=== PATIENT | male | born 1975 | race Caucasian/White ===

== ENCOUNTER 2021-09-08 15:36 | Emergency (ER) | payer OTHER, SELFPAY ==
--- NOTE | ~2021-09-08 | XR_ITS ---
EXAMINATION: [id number] DATE: 09/08/2021 16:13 INDICATION: Right rib pain. Cough. TECHNIQUE: A frontal view of the chest and 2 views on 3 radiographs of the right ribs were obtained. COMPARISON: CT abdomen and pelvis 07/22/2015 FINDINGS: The chest demonstrates clear lungs without pneumonia, pleural effusion, or pneumothorax. Th e heart size is normal. There is an old healed fracture of left clavicle. There is no rib fracture. IMPRESSION: 1. No rib fracture. Reviewed, dictated and finalized at location A. IMPRESSION: 1. No rib fracture.
--- NOTE | 2021-09-08 16:25 | ED.GENADULT ---
HPI - General Adult General Chief complaint: Unspecified Stated complaint: right side rib pain Source: patient and RN notes reviewed Mode of arrival: ambulatory Limitations: no limitations History of Present Illness HPI narrative: 46-year-old male presents with concern for right-sided rib pain. Reports he has had cold symptoms with a cough that started on Sunday. Reports he has had a lot of drainage and is coughing a lot, yesterday during a coughing fit he felt a pop in his chest wall and since then has had pain with coughing and deep breathing. Reports trouble sleeping due to the pain and coughing. He denies shortness of breath. Denies fever, bodies, chills, sweats. MD complaint: Upper respiratory infection Related Data Home Medications Medication Instructions Recorded Confirmed omeprazole 40 mg capsule,delayed 40 mg PO DAILY 12/30/20 01/17/21 release Allergies Allergy/AdvReac Type Severity Reaction Status Date / Time No Known Allergies Allergy Verified 12/30/20 08:04 Review of Systems Review of Systems: CONSTITUTIONAL: Denies malaise, chills, sweats, or fever. EYES: Denies visual changes, redness, or discharge. ENT: Reports rhinorrhea, congestion. Denies sinus pain, otalgia and sore throat. CARDIOVASCULAR: Denies chest pain, palpitations, or edema. RESPIRATORY: Reports cough. Denies dyspnea. Reports right-sided anterior chest wall pain GASTROINTESTINAL: Denies abdominal pain, nausea, vomiting, diarrhea SKIN: Denies rash or itching. MUSCULOSKELETAL: Denies myalgia. NEUROLOGIC: Denies headache. All systems reviewed & are unremarkable except as noted in HPI and below PMFSH Past Medical History Medical History Acute bronchitis due to other specified organisms Acute pain of left foot Acute pain of right shoulder Acute sinusitis, unspecified Adenomatous colon polyp BMI 38.0-38.9,adult BMI 40.0-44.9, adult Body mass index [BMI] 39.0-39.9, adult (09/24/17) Chronic fatigue Constipation Dietary counseling and surveillance (05/08/18) Diverticulitis Diverticulitis large intestine Diverticulitis of large intestine without perforation or abscess Elevated glucose Infection of right eye Left lower quadrant pain Low serum testosterone Lung nodule Obese Right hip pain Screening for lipid disorders Screening for prostate cancer Vitamin D deficiency Family History Family History Mother Hypertension Father Heart disease Sibling No problems noted. 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 There is no relevant family history pertinent to the presenting complaint Exam Narrative: GENERAL: Well-appearing, well-nourished, and in no acute distress. HEAD: Normocephalic EYES: PERRLA, conjunctivae clear ENT: Nares clear, clear discharge. Mucous membranes moist. TM pearly zepeda with sharp light reflex bilaterally; no tragal tenderness. Oropharynx not erythematous without lesions. Tonsils not enlarged and without exudate, no drooling, no hoarseness, no trismus, uvula midline. NECK: Supple. No lymphadenopathy CHEST: Clear to auscultation, breath sounds equal. No wheezing, rhonchi, rales, or stridor. No respiratory distress, speaks in full sentences. No chest wall tenderness noted HEART: Regular rate and rhythm. No murmur heard. SKIN: Warm, dry, no rash. NEURO: Alert and oriented x3. P
== END 2021-09-08 16:37 | disposition home or self-care (01) ==
PROVIDERS: Emergency Provider Nurse Practitioner; PCP Family Medicine
DX: J40 Bronchitis, not specified as acute or chronic (principal); R07.89 Other chest pain
CPT/HCPCS: 71101; 99213; G0463

== ENCOUNTER 2023-11-06 15:30 | Outpatient (RCR) | payer OTHER, SELFPAY | END 2023-11-19 10:26 | disposition home or self-care (01) | LOC: ANHDMC 15:30 | PROVIDERS: PCP Family Medicine; Visit Provider Family Medicine | DX: E11.9 Type 2 diabetes mellitus without complications (principal); Z71.89 Other specified counseling | CPT/HCPCS: G0108 ==

== ENCOUNTER 2024-07-28 11:30 | Emergency (ER) | payer OTHER, SELFPAY ==
--- NOTE | ~2024-07-28 | CT_ITS ---
EXAMINATION: CT abdomen pelvis w con DATE: 07/28/2024 12:41 INDICATION: Lower abdominal pain TECHNIQUE: Computed tomography (CT) of the abdomen and pelvis was performed with 100 mL Omnipaque-350 intravenous contrast. Automated exposure control and iterative reconstruction technique were employe d. The dose-length product was 1687.17 mGy-cm. COMPARISON: 07/22/2015 FINDINGS: Mild atelectasis at the dependent lung bases. Heart size is normal. No pericardial or pleural effusio n. Diffuse hepatic steatosis with focal sparing along the gallbladder fossa. Gallbladder, spleen, michel creas, bilateral adrenal glands and kidneys are normal. There is some stranding surrounding the mid s igmoid colon without evident diverticulum but with focal circumferential wall thickening with apple c ore appearance and abrupt transition to normal wall thickness which raises concern for colon cancer. Wall thickening at this location on the study from 2015 but it did appear to be associated diverticul um and this could be related to acute on chronic diverticulitis. Remainder the bowels including the a ppendix are normal. Moderate-sized fat-containing umbilical hernia measuring 8.6 x 7.9 x 6.5 cm and e xtending through a 2.5 cm diameter os. No abscess or free intraperitoneal gas. No pathologically enla rged abdominal or pelvic lymphadenopathy.. L5 spondylolysis with bilateral pars interarticularis defe cts but without spondylolisthesis. Severe spondylosis at L5-S1 IMPRESSION: 1. Inflammatory stranding surrounding a focal region of wall thickening in the mid sigmoid colon sett ing of prior diverticulitis which could represent recurrent acute on chronic diverticulitis although appearance also raises some concern for malignancy and if this has not been recently performed would recommend further evaluation with colonoscopy when clinically appropriate. 2. Moderate-sized fat-containing umbilical hernia. Reviewed, dictated and finalized at location A. IMPRESSION: 1. Inflammatory stranding surrounding a focal region of wall thickening in the mid sigmoid colon setting of prior diverticulitis which could represent recurre nt acute on chronic diverticulitis although appearance also raises some concern for malignancy and if this has not been recently performed would recommend fur ther evaluation with colonoscopy when clinically appropriate. 2. Moderate-sized fat-containing umbilical hernia.
[2024-07-28 11:37] VITALS: BP 160/104; PULSE 103; RESP 18; TEMP 36.8; O2SAT 99
[2024-07-28 12:02] LABS: Basophils Absolute Auto 0.1 K/mm3 (0.0-0.1); Basophils Percent Auto 0.8 % (0.2-1.2); Eosinophils Absolute Auto 0.3 K/mm3 (0-0.3); Eosinophils Percent Auto 2.5 % (0-4.4); Hematocrit 45.5 % (42.0-52.0); Hemoglobin 14.8 g/dL (14.0-18.0); Immature Granulocyte Absolute 0.07 K/mm3 (0.00-0.031); Immature Granulocyte Percent A 0.7 % (0-0.5); Lymphocytes Absolute Auto 1.17 K/mm3 (0.9-3.2); Lymphocytes Percent Auto 11.2 % (18.3-44.2); Mean Corpuscular HGB Conc 32.5 g/dl (32-36); Mean Corpuscular Volume 89.2 fl (80-100); Monocytes Absolute Auto 0.8 K/mm3 (0.1-0.6); Monocytes Percent Auto 7.2 % (2.6-8.5); Neutrophils Absolute Auto 8.1 K/mm3 (1.3-6.7); Neutrophils Percent Auto 77.6 % (45.5-73.1); Platelet Count Result 244 k/mm3 (150-375); Red Cell Distribution Width 13.9 % (11.5-14.5); White Blood Count 10.5 K/mm3 (4.5-10.0)
[2024-07-28 12:14] LABS: Alanine Aminotransferase 48 U/L (6-50); Albumin Level 4.4 g/dL (3.5-5.1); Alkaline Phosphatase 144 U/L (38-126); Anion Gap 11 mmol/L (4-12); Aspartate Amino Transferase 32 U/L (17-59); Bilirubin,Total 0.7 mg/dL (0.2-1.3); Blood Urea Nitrogen 12 mg/dL (9-20); Calcium 9.4 mg/dL (8.4-10.2); Carbon Dioxide 24 mmol/L (22-30); Chloride 102 mmol/L (98-107); Estimated CRCL calculation 122 ml/min; Estimated Glomerular Filt Rate > 60; Glucose 157 mg/dL (65-110); Lipase 42 U/L (23-300); Potassium 4.1 mmol/L (3.4-5.0); Sodium 137 mmol/L (137-145); Total Protein 7.7 g/dL (6.3-8.2)
[2024-07-28 12:18] LABS: Add Urine Microscopic? YES; Appearance Urine Clear (Clear); Bacteria Urine None Seen /hpf; Bilirubin Urine Negative (Negative); Blood Urine Negative (Negative); Color Urine Dark Yellow (Yellow); Glucose Urine UA Negative (Negative); Hyaline Casts Urine Present /lpf; Ketones Urine Trace mg/dL (Negative); Leukocyte Esterase Ur Negative LEU/UL (Negative); Mucus Urine Present /lpf; Need Manual Microscopic Reviewed; Nitrate Urine Negative (Negative); Protein Urine 1+ mg/dL (Negative); RBC Urine 0-2 /hpf (0-2); Specific Grav Ur 1.033 (1.001-1.035); Squamous Epithelial Cell Urine Few /hpf (Few); pH Urine 5.5 (5.0-9.0)
--- NOTE | 2024-07-28 12:37 | PC.NURSE ---
Pt. in CT. Will administer ordered meds when pt. returns.
[2024-07-28] MEDS: SODIUM CHLORIDE 0.9% IV 2,000 ML 999 ML IV CONT (12:46)
[2024-07-28] MEDS: HYDROmorphone HCL INJ (*CRX) 2 MG/ML VIAL 0.5 MG IV PUSH (12:47)
[2024-07-28 13:00] VITALS: BP 137/102; PULSE 73; RESP 14; O2SAT 98
--- OUTSIDE RECORDS SUMMARY | 2024-07-28 13:04 | XMS_ITS | Clinical Summary ---
Author Organization [facility] Address [address] [place] [address] Care Team Providers Care Research Quality Assurance Analyst Name Role Phone Unavailable Primary Care Provider Unavailabl e Source Comments [facility],non-owned Affiliates and Associated Physician Practices is amultiple site organization consisting of ambulatory clinics and hospital sitesin [place], [place], [place] and [place]. This disclosure is being madepursuant to the Care Everywhere program and may not contain all information available regarding this patient. Last updated 17.[facility] Medications * Be aware that medications may not be up to date on this document. Alwaysverify current medications with the patient. valACYclovir (VALTREX) 1 GM tablet Take 2 (two) tablets by mouth 2 times daily 4 tablet 08/02/2020 Active Active Problems No known active problems Social History Tobacco Use Types Packs/Day Years Used Date Smoking Tobacco: Never Assessed PHQ-2 Answer Date Recorded PHQ2 TOTAL SCORE 0 08/02/2020 Sex and Gender Information Value Date Recorded Sex Assigned at Not on file Legal Sex Male 8:18 AM CDT Gender Identity Not on file Sexual Orientation Not on file Last Filed Vital Signs Vital Sign Reading Time Taken Comments Blood Pressure 130/72 08/02/2020 4:22 PM CDT Pulse 81 08/02/2020 4:22 PM CDT Temperature 36.9 C (98.4 F) 08/02/2020 4:22 PM CDT Respiratory Rate 20 08/02/2020 4:22 PM CDT Oxygen Saturation - - Inhaled Oxygen Concentration - - Weight - - Height - - Body Mass Index - - Plan of Treatment Health Maintenance Due Date Last Done Comments COLOGUARD (AGES 45-75) - COL ON CA SCREENING 1973 COLON MONITORING 1973 COLONOSCOPY - COLON CA SCREENING 1973 CT COLONOGRAPHY - COLON CA SCREENING 1973 Colorectal Cancer Screening 1973 FIT - COLON CA SCREENING 1973 FLEX SIG - COLON CA SCREENING 1973 LIPID TESTING 1973 HIV SCREENING 1988 HEPATITIS C SCREENING 09/04/1991 DTAP/TDAP/TD VACCINES (1 - Tdap) 1992 HEPATITIS B VACCINE (1 of 3 - 19+ 3-dose series) 1992 PNEUMOCOCCAL VACCINE 50+ (1 of 1 - PCV) 09/09/2023 ZOSTER VACCINE (1 of 2) 09/09/2023 COVID-19 VACCINE (3 - 2023-2 5 season) 2023 06/08/2020, 05/18/2020 DEPRESSION SCREENING 02/20/2024 INFLUENZA VACCINE (Season Ended) 2024 HIB VACCINE Aged Out No longer eligi ble based on patient's age to complete this topic HPV VACCINE Aged Out No longer eligi ble based on patient's age to complete this topic MENINGOCOCCAL (Group B) VACCINE SHARED DECISION-MAKING Aged Out No longer eligible based on patient's age to complete this topic MENINGOCOCCAL GROUPS A/C/Y/W VACCINE Aged Out No longer eligible b ased on patient's age to complete this topic Insurance NA NIKKI
--- NOTE | 2024-07-28 13:08 | ED.GENADULT ---
HPI - General Adult General Chief complaint: Abdominal Pain Stated complaint: severe stomach pains Time Seen by Provider: 07/28/24 12:01 History of Present Illness HPI narrative: This is a 48-year-old male with history of diverticulitis presenting for lower abdominal pain. Symptoms started 2 days ago. Describes as a crampy pain in the suprapubic region. Associated with changes in bowel habits. He has had subjective fevers but has not taken a temperature. He says this feels similar to previous diverticulitis bouts. Related Data Home Medications ?Medication ?Instructions ?Recorded ?Confirmed ?Last Taken ?Type cholecalciferol (vitamin D3) 1,250 1,250 mcg PO WEEKLY 05/02/24 05/02/24 Unknown History mcg (50,000 unit) capsule Allergies Allergy/AdvReac Type Severity Reaction Status Date / Time No Known Allergies Allergy Verified 07/28/24 11:44 [facility] Past Medical History Medical History Decreased libido BMI 40.0-44.9, adult Acute bronchitis due to other specified organisms Acute pain of left foot Acute pain of right shoulder Acute sinusitis, unspecified Chronic fatigue Dietary counseling and surveillance (05/08/18) Diverticulitis Diverticulitis of large intestine without perforation or abscess Elevated glucose Infection of right eye Left lower quadrant pain Low serum testosterone Lung nodule Right hip pain Screening for lipid disorders Screening for prostate cancer Vitamin D deficiency Constipation Obese Adenomatous colon polyp Diverticulitis large intestine Surgical History Surgical History Hx of colonoscopy Family History Family History Mother Hypertension Father Heart disease Sibling No problems noted. Other Cerebrovascular accident Family history of coronary artery disease Social History Social History Smoking status: Never smoker Second hand tobacco smoke exposure: Yes Alcohol intake: current Drinks per week: 12 Alcohol use details: beers Substance use: never Substance use type: does not use Do You Feel Safe in your Home?: Yes Lack of Transportation: No Lack of Food: Never True Current Housing: I Have Housing Concerned About Future Housing: No Difficulty Paying Gas/Electric Bills: No Difficulty Paying for Meds: No Currently Unemployed: No Education: High School Diploma/GED Difficulty w/ Childcare or Family Care: No Living arrangements: with family Occupation/Education: occupation 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 Head: atraumatic. EYES: EOMI, NOSE: Atraumatic NECK: Trachea midline RESPIRATORY: No increased rate of breathing CARDIOVASCULAR: RRR, ABDOMINAL: Obese, nontender, no guarding rebound, umbilical hernia MUSCULOSKELETAl: No obvious deformities NEURO: Alert. Moving 4/4 extremities SKIN:: Warm, dry. Normal color PSYCHIATRIC: Normal affect Course Vital Signs Vital signs: Vital Signs Temperature 98.2 F 07/28/24 11:37 Pulse Rate 103 H 07/28/24 11:37 Respiratory Rate 18 07/28/24 11:37 Blood Pressure 160/104 H 07/28/24 11:37 Pulse Oximetry 99 07/28/24 11:37 Oxygen Delivery Room Air 07/28/24 11:37 Temperature 98.2 F 07/28/24 11:37 Pulse Rate 73 07/28/24 13:00 Respiratory Rate 14 07/28/24 13:00 Blood Pressure 137/102 H 07/28/24 13:00 Pulse Oximetry 98 07/28/24 13:00 Oxygen Delivery Room Air 07/28/24 11:37 Medical Decision Making MDM Narrative Medical decision making narrative: -Course: 48-year-old male presenting for lower abdominal pain. CT abdomen pelvis showed inflammation around the sigmoid colon which could be acute on chronic diverticulitis versus possible malignancy. This was discussed with the patient he had a colonoscopy 2 years ago and had some polyps removed but there is no concern for cancer that time. He follows up with a GI doctor in [place] and is comfortable following up. Other than that is heart rate was tachycardic on arrival but responded to fluids and pain medications. Laboratory studies are within acceptable limits. Patient will be discharged on a short course of antibiotics, pain meds and antiemetics. Follow up with his GI doctor in week. Given return precautions. -DDX includes but is not limited to: Diverticulitis, complicated diverticulitis, UTI small-bowel obstruction appendicitis, colitis -Co-morbidities complicating care: History of diverticulitis, diabetes, obesity Vital Signs Vital Signs: Vital Signs Temperature 98.2 F 07/28/24 11:37 Pulse Rate 103 H 07/28/24 11:37 Respiratory Rate 18 07/28/24 11:37 Blood Pressure 160/104 H 07/28/24 11:37 Pulse Oximetry 99 07/28/24 11:37 Oxygen Delivery Room Air 07/28/24 11:37 Temperature 98.2 F 07/28/24 11:37 Pulse Rate 73 07/28/24 13:00 Respiratory Rate 14 07/28/24 13:00 Blood Pressure 137/102 H 07/28/24 13:00 Pulse Oximetry 98 07/28/24 13:00 Oxygen Delivery Room Air 07/28/24 11:37 Lab Data 07/28/24 11:53 07/28/24 11:53 Labs: Lab Results 07/28/24 Range/Units 11:53 WBC 10.5 H (4.5-10.0) K/mm3 RBC 5.10 (4.6-6.20) M/mm3 Hgb 14.8 (14.0-18.0) g/dL Hct 45.5 (42.0-52.0) % MCV 89.2 (80-100) fl MCH 29.0 (26-34) pg MCHC 32.5 (32-36) g/dl RDW 13.9 (11.5-14.5) % Plt Count 244 (150-375) k/mm3 MPV 10.0 (7.4-10.4) fl Immature Gran % (Auto) 0.7 H (0-0.5) % Neut % (Auto) 77.6 H (45.5-73.1) % Lymph % (Auto) 11.2 L (18.3-44.2) % [place] % (Auto) 7.2 (2.6-8.5) % Eos % (Auto) 2.5 (0-4.4) % Baso % (Auto) 0.8 (0.2-1.2) % Lymph # (Auto) 1.17 (0.9-3.2) K/mm3 [place] # (Auto) 0.8 H (0.1-0.6) K/mm3 Eos # (Auto) 0.3 (0-0.3) K/mm3 Baso # (Auto) 0.1 (0.0-0.1) K/mm3 Abs Immat Gran (auto) 0.07 H (0.00-0.031) K/mm3 Absolute Neuts (auto) 8.1 H (1.3-6.7) K/mm3 Absolute Nucleated RBC 0.000 (0.0-0.012) K/mm3 Nucleated RBC % 0.0 (0.0-0.2) % Sodium 137 (137-145) mmol/L Potassium 4.1 (3.4-5.0) mmol/L Chloride 102 (98-107) mmol/L Carbon Dioxide 24 (22-30) mmol/L Anion Gap 11 (4-12) mmol/L BUN 12 (9-20) mg/dL Creatinine 0.90 (0.7-1.3) mg/dL Estim Creat Clear Calc 122 ml/min Estimated GFR > 60 (59 - ) Glucose 157 H (65-110) mg/dL Calcium 9.4 (8.4-10.2) mg/dL Total Bilirubin 0.7 (0.2-1.3) mg/dL AST 32 (17-59) U/L ALT 48 (6-50) U/L Alkaline Phosphatase 144 H (38-126) U/L Total Protein 7.7 (6.3-8.2) g/dL Albumin 4.4 (3.5-5.1) g/dL Lipase 42 (23-300) U/L Urine Color Dark yellow (Yellow) Urine Appearance Clear (Clear) Urine pH 5.5 (5.0-9.0) Ur Specific [place] 1.033 (1.001-1.035) Urine Protein 1+ H (Negative) mg/dL Urine Glucose (UA) Negative (Negative) mg/dL Urine Ketones Trace H (Negative) mg/dL Ur Blood (Man) Negative (Negative) Urine Nitrate Negative (Negative) Urine Bilirubin Negative (Negative) Urine Urobilinogen 1.0 (<2.0) mg/dL Add Ur Microanalysis Reviewed Leukocyte Esterase Rfl Negative (Negative) TRISTEN/UL Urine RBC 0-2 (0-2) /hpf Urine WBC 6-10 H (0-3) /hpf Ur Squamous Epith Cells Few (Few) /hpf Urine Bacteria None seen /hpf Urine Casts 3-5 Hyaline Casts Present (None) /lpf Urine Mucus Present /lpf Discharge Plan Discharge Clinical Impression: Diverticulitis Patient Disposition: Home Condition: Stable Instructions: Antibiotic Form, Diverticulitis (DC) Additional Instructions: You were seen in the emergency department for diverticulitis. Complete the course of antibiotics. Use over the counter Motrin/Tylenol pain control and Zofran nausea return if severe abdominal pain, intractable nausea vomiting or if you feel your condition is getting worse. Please follow-up with your GI doctor in 1 week for further management. Patient Language: Hungarian Prescriptions: New amoxicillin-pot clavulanate 875-125 mg tablet 1 tablet PO Q8H Qty: 15 0RF ibuprofen 800 mg tablet 800 mg PO TID PRN (Reason: pain) 7 Days Qty: 21 0RF acetaminophen 500 mg tablet 1,000 mg PO TID PRN (Reason: carissa) 7 Days Qty: 42 0RF ondansetron 4 mg tablet,disintegrating 4 mg PO Q8H PRN (Reason: nausea and vomiting) Qty: 30 0RF No Action esomeprazole magnesium [Nexium] 40 mg capsule,delayed release(DR/EC) 40 mg PO DAILY Qty: 30 3RF clomiphene citrate 50 mg tablet 25 mg PO DAILY Qty: 30 2RF cholecalciferol (vitamin D3) 1,250 mcg (50,000 unit) capsule 1,250 mcg PO WEEKLY (DME) OneTouch Verio test strips Strip See Rx Instructions .Route Qty: 100 0RF Rx Instructions: As directed (DME) lancets [OneTouch Delica Plus Lancet] 30 gauge misc See Rx Instructions .Route Qty: 100 3RF Rx Instructions: check glucose bid for diabetes metformin 500 mg tablet extended release 24 hr See Rx Instructions .ROUTE .COMPLEX Qty: 180 1RF Dose Instruction: TAKE 1 TABLET BY MOUTH TWICE DAILY Rx Instructions: TAKE 1 TABLET BY MOUTH TWICE DAILY tirzepatide 10 mg/0.5 mL pen injector 10 mg subcut WEEKLY Qty: 2 1RF Rx Instructions: for weeks 8-12 Follow-up/Referrals: Fidel Rae MD [Primary Care Provider] -
--- OUTSIDE RECORDS SUMMARY | 2024-07-28 13:43 | XMS_ITS | Clinical Summary ---
Author Organization [facility] Address [address] [place] [address] Care Team Providers Care Timber Killer Name Role Phone Unavailable Primary Care Provider Unavailabl e Source Comments [facility],non-owned Affiliates and Associated Physician Practices is amultiple site organization consisting of ambulatory clinics and hospital sitesin [place], [place], [place] and [place]. This disclosure is being madepursuant to the Care Everywhere program and may not contain all information available regarding this patient. Last updated 17.[facility] Medications * Be aware that medications may [...]
[2024-07-28 14:31] VITALS: BP 147/97; PULSE 90; RESP 16; O2SAT 98
== END 2024-07-28 14:35 | disposition home or self-care (01) ==
PROVIDERS: General Practice; Emergency Provider Emergency Medicine; PCP Family Medicine
DX: K57.32 Diverticulitis of large intestine without perforation or abscess without bleeding (principal); E66.9 Obesity, unspecified; Z68.39 Body mass index [BMI] 39.0-39.9, adult
CPT/HCPCS: 36415; 74177; 80053; 81001; 83690; 85025; 87086; 96361; 96374; 99284; J1171; J7030; Q9967

== ENCOUNTER 2024-10-17 00:08 | Day surgery (SDC) | payer OTHER, SELFPAY ==
--- OUTSIDE RECORDS SUMMARY | 1997-12-27 19:00 | XMS_ITS | Continuity of Care Document ---
Author Organization [facility] Address [address] [address] Phone Care Team Providers Care Planning Feeder Name Role Phone Sheri Quezada MD Unavailable Unavailable Advance Directives Directive Yes / No Effective Date File Name No Information Encounters Encounter Description Practice Location Reason(s) For Visit Diagnoses Date Provider Providers Copied on Encounter [facility], [address], [place], [address], tel:[phone] Sheri Quezada No Information Pilar Wade. [address] [place] [address] [address], [place], [address], . tel:[phone] Referring Provider: Deandre Nova [facility] [address], [place], [place], [facility]. tel:[phone] Family History Family Member Type Diagnosis Age At Onset No Information Payers Payer name Insurance type Covered democrat ID Authoriza tion(s) No Information Social History Type Description Quantity Date Captured Comments Sex Male Smoking Status No Information Chief Complaint And Reason For Visit No Information History Of Present Illness Encounter Date Complaint History Of Prese nt Illness No Information Instructions Date Instruction Additional Infor mation No Information Assessments Type Assessment Date No Information
--- OUTSIDE RECORDS SUMMARY | 2017-04-26 07:00 | XMS_ITS | Continuity of Care Document ---
Author Organization [employer] Address [address] [facility] [address] [place] [address] Phone Care Team Providers Care Slab Conditioner Supervisor Name Role Phone Ailyn PT, DPT, Jack [...] Diagnoses Date Provider Providers Copied on Encounter [facility], [address] [address], [place], [place], [id number], tel:[phone] [place] No Information Ailyn Santiago. . Referring Provider: Humphrey Ho, [address], [place], [address]. tel:[phone] [facility], [address], [place], [place], [id number], tel:[phone] [place] No Information Ailyn Santiago. . Referring Provider: Humphrey Tavarez [address], [place], [address]. tel:[phone] [place] [address], [address], [id number], [place] tel:[phone] [place] No Information Ailyn Santiago. . Referring Provider: Humphreymarcella Tavarez [address], [place], [address]. tel:[phone] [facility], [address] [facility] [address] [place] [address], [id number], [place] tel:[phone] [place] No Information Ailyn Santiago. . Referring Provider: Humphrey Tavarez [address], [place], [address]. tel:[phone] [facility], [address], [place], [id number], [place] tel:[phone] [place] No Information Ailyn Santiago. . Referring Provider: Humphrey Tavarez [address], [place], [address]. tel:[phone] [facility], [address], [place], [place], [id number], [place] tel:[phone] [place] No Information Ailyn Santiago. . Referring Provider: Humphrey Corby, [address], [place], [address]. tel:[phone] [facility], [address] [address], [place], [place], [id number], tel:[phone] [place] No Information Ailyn Santiago. . Referring Provider: Humphrey Corby [address], [place], [address]. tel:[phone] [facility], [address], [id number], [place] tel:[phone] [place] No Information Ailyn Santiago. . Referring Provider: Humphrey Tavarez [address], [place], [address]. tel:[phone] [facility], [address], [id number], [place] tel:[phone] [place] No Information Ailyn Santiago. . Referring Provider: Humphrey Corby [address], [place], [address]. tel:[phone] [facility], [address], [id number], [place] tel:[phone] [place] No Information Ailyn Santiago. . Referring Provider: Humphrey Corby [address], [place], [address]. tel:[phone] [facility], [address], [id number], [place] tel:[phone] [place] Inj oth musc/tend at lower leg level, left leg, subs Ailyn Santiago. . Referring Provider: Humphrey Tavarez [address] [place], [address]. tel:[phone] Family History Family Member Type Diagnosis Age At Onset No Information Payers Payer name Insurance type Covered libertarian ID Authoriza lucinda(s) [facility] [id number] Social History Type Description Quantity Date Captured [...]
[2024-10-01 13:04] VITALS: BMI 39.3
--- OUTSIDE RECORDS SUMMARY | 2024-10-17 00:11 | XMS_ITS | Clinical Summary ---
Author Organization [facility] Address [address] [place] [id number] Care Team Providers Care House Worker General Name Role Phone Fidel Rae MD Primary Care Provider [phone] Allergies No known active allergies Medications ondansetron 4 MG disintegrating tablet Take 1 tablet (4 mg total) by mouth every 8 (eight) hours as needed for Nausea. 20 tablet 9 Active hydrocodone-acetami nophen 5-325 MG tablet Take 1 tablet by mouth every 6 (six) hours as needed for Pain. 14 tablet 9 Active Family History Medical History Relation Comments Cancer Father Relation Status Comments Father Social History Tobacco Use Types Packs/Day Years Used Date Smoking Tobacco: Never Smokeless Tobacco: Never Alcohol Use Standard Drinks/Week Comments Yes 16 (1 standard drink = 0.6 oz pu re alcohol) Sex and Gender Information Value Date Recorded Sex Assigned at Not on file Legal Sex Male 11:51 AM CDT Gender Identity Not on file Sexual Orientation Not on file Last Filed Vital Signs Vital Sign Reading Time Taken Comments Blood Pressure 142/92 09/30/2018 11:55 AM CDT Pulse 88 09/30/2018 11:55 AM CDT Temperature 37.1 C (98.8 F) 09/30/2018 11:55 AM CDT Respiratory Rate 18 09/30/2018 11:55 AM CDT Oxygen Saturation 100% 09/30/2018 11:55 AM CDT Inhaled Oxygen Concentration - - Weight 135.6 kg (299 lb) 09/30/2018 11:55 AM CDT Height 182.9 cm (6') 09/30/2018 11:55 AM CDT Body Mass Index 40.55 09/30/2018 11:55 AM CDT Plan of Treatment Health Maintenance Due Date Last Done Comments Colorectal Cancer Screening Colonoscopy (10 Years) 1973 Annual Physical 1976 Hepatitis C 09/09/1991 DTaP, Tdap and Td Vaccines ( 1 - Tdap) 1992 Hepatitis B Vaccines (1 of 3 - 19+ 3-dose series) 1992 Pneumococcal Vaccine: 50+ Ye ars (1 of 1 - PCV) 09/09/2023 Zoster Vaccines (1 of 2) 09/09/2023 COVID-19 Vaccine (1 - 2023-2 5 season) 2023 Meningococcal B Vaccine Aged Out No l onger eligible based on patient's age to complete this topic Meningococcal Vaccine Aged Out No kary calvin eligible based on patient's age to complete this topic RSV Immunizations Under 20 Months Aged Out No longer eligible based on patient's age to complete this topic Insurance Care Teams House Worker General Relationship Specialty Start Date End Date Fidel Rae MD [address] [id number] PCP - General FAMILY PRACTICE 09/30/18
[2024-10-17 10:24] VITALS: BP 140/88; PULSE 101; RESP 16; TEMP 36.6; O2SAT 99; BMI 38.9
[2024-10-17] MEDS: LACTATED RINGERS 1,000 ML 150 ML IV CONT (10:36)
--- NOTE | 2024-10-17 10:41 | P.PNAN_ITS ---
Anes - Initial Pre Proc Eval Procedure: Operation Date: 10/17/24 11:30 Proposed Procedures p EGD & Diagnostic Colonoscopy - Charlie Argueta MD Date/Time: 10/17/24 10:41 Surgeon: Charlie Argueta MD Pre Op Diagnosis: Abnormal findings on diagnostic imaging of other a Patient Data Age: 49 Gender: M Height: 1.83 m Weight: 130.4 kg Last Vital Signs Temp 36.6 C 10/17/24 10:24 Pulse 101 H 10/17/24 10:24 Resp 16 10/17/24 10:24 BP 140/88 10/17/24 10:24 Pulse Ox 99 10/17/24 10:24 O2 Del Method Room Air 10/17/24 10:24 Allergies Allergy/AdvReac Type Severity Reaction Status Date / Time No Known Allergies Allergy Verified 10/17/24 10:22 Home Medications ?Medication ?Instructions ?Recorded ?Confirmed ?Type esomeprazole magnesium 40 mg 40 mg PO DAILY #30 caps 1 10/17/24 Rx capsule,delayed release (Nexium) blood sugar diagnostic (OneTouch #100 ea 08/30/2309/19 Rx Verio test strips) lancets 30 gauge (OneTouch Delica #100 ea 01/02/24 Rx Plus Lancet) clomiphene citrate 50 mg tablet 25 mg (1/2 x 50 mg) PO DAILY #30 02/11/24 10/17/24 Rx tabs metformin 500 mg tablet,extended See Rx Instructions . Route 04/22/24 10/17/24 Rx release 24 hr .COMPLEX #180 tabs cholecalciferol (vitamin D3) 1,250 1,250 mcg PO WEEKLY 05/02/24 10/17/24 History mcg (50,000 unit) capsule acetaminophen 500 mg tablet 1,000 mg (2 x 500 mg) PO T ID PRN 07/28/24 10/17/24 Rx carissa 7 days #42 tabs ibuprofen 800 mg tablet 800 mg PO TID PRN pain 7 day s #21 07/28/24 10/01/24 Rx tabs ondansetron 4 mg disintegrating 4 mg PO Q8H PRN nausea and 07/28/24 10/01/24 Rx tablet vomiting #30 tabs testosterone cypionate 200 mg/mL 200 mg subcut [id number] 10/01/24 10/01/24 History intramuscular oil tirzepatide 10 mg/0.5 mL 15 mg subcut WEEKLY 10/01/24 10/01/24 History subcutaneous pen injector Laboratory Tests 10/17/24 10:29 POC Capillary Glucose 129 H mg/dl (65-105) Patient hx anesthesia problems: none Family hx anesthesia problems: none Results Review: All pre-operative results and documents have been reviewed as part of the pre- operative evaluation. [facility] Past Medical History Medical History Type 2 diabetes mellitus without complications HERON (obstructive sleep apnea) Decreased libido BMI 40.0-44.9, adult Acute bronchitis due to other specified organisms Acute pain of left foot Acute pain of right shoulder Acute sinusitis, unspecified Chronic fatigue Dietary counseling and surveillance (05/08/18) Diverticulitis Diverticulitis of large intestine without perforation or abscess Elevated glucose Infection of right eye Left lower quadrant pain Low serum testosterone Lung nodule Right hip pain Screening for lipid disorders Screening for prostate cancer Vitamin D deficiency Constipation Obese Adenomatous colon polyp Diverticulitis large intestine Surgical History Surgical History Hx of colonoscopy Family History Family History Mother Hypertension Father Heart disease Sibling No problems noted. Other Cerebrovascular accident Family history of coronary artery disease Social History Social History Smoking status: Never smoker Second hand tobacco smoke exposure: Yes Alcohol intake: current Drinks per week: 24 Alcohol use details: beer Substance use: never Substance use type: does not use Do You Feel Safe in your Home?: Yes Lack of Transportation: No Lack of Food: Never True Current Housing: I Have Housing Concerned About Future Housing: No Difficulty Paying Gas/Electric Bills: No Difficulty Paying for Meds: No Currently Unemployed: No Education: High School Diploma/GED Difficulty w/ Childcare or Family Care: No Living arrangements: with family Occupation/Education: occupation 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 Informed Consent: The patient's anesthetic plan and its attendant risks and benefits were discussed with the patient/family/POA. Questions were solicited and answers provided to the satisfaction of the patient/family/POA.
--- NOTE | 2024-10-17 10:43 | P.HP_ITS ---
History of Present Illness History of Present Illness Consent: Risks, benefits, and alternatives have been discussed and questions answered. Patient agrees to proceed with procedure. Chief complaint: Abnormal findings on diagnostic imaging of other a Narrative: Braden Cagle is a 49 year old male with h/o burping taking ppi, also had abdominal pain that triggered CT scan- showed inflammation in sigmoid, possible diverticulitis. Last colonoscopy ~ 4 years ago Review of Systems Review of Systems: All systems reviewed & are unremarkable except as noted in HPI and below PMFSH Past Medical History Medical History Type 2 diabetes mellitus without complications HERON (obstructive sleep apnea) Decreased libido BMI 40.0-44.9, adult Acute bronchitis due to other specified organisms Acute pain of left foot Acute pain of right shoulder Acute sinusitis, unspecified Chronic fatigue Dietary counseling and surveillance (05/08/18) Diverticulitis Diverticulitis of large intestine without perforation or abscess Elevated glucose Infection of right eye Left lower quadrant pain Low serum testosterone Lung nodule Right hip pain Screening for lipid disorders Screening for prostate cancer Vitamin D deficiency Constipation Obese Adenomatous colon polyp Diverticulitis large intestine Surgical History Surgical History Hx of colonoscopy Family History Family History Mother Hypertension Father Heart disease Sibling No problems noted. Other Cerebrovascular accident Family history of coronary artery disease Social History Social History Smoking status: Never smoker Second hand tobacco smoke exposure: Yes Alcohol intake: current Drinks per week: 24 Alcohol use details: beer Substance use: never Substance use type: does not use Do You Feel Safe in your Home?: Yes Lack of Transportation: No Lack of Food: Never True Current Housing: I Have Housing Concerned About Future Housing: No Difficulty Paying Gas/Electric Bills: No Difficulty Paying for Meds: No Currently Unemployed: No Education: High School Diploma/GED Difficulty w/ Childcare or Family Care: No Living arrangements: with family Occupation/Education: occupation 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 Gender identity (if verbalized by the patient): Male Spiritual care concerns: No Meds Home Medications and Allergies Home Medications ?Medication ?Instructions ?Recorded ?Confirmed ?Type esomeprazole magnesium 40 mg 40 mg PO DAILY #30 caps 1 10/17/24 Rx capsule,delayed release (Nexium) blood sugar diagnostic (Effortless EnergyTouch #100 ea 08/30/2309/19 Rx Verio test strips) lancets 30 gauge (Effortless EnergyTouch Delica #100 ea 01/02/24 Rx Plus Lancet) clomiphene citrate 50 mg tablet 25 mg (1/2 x 50 mg) PO DAILY #30 02/11/24 10/17/24 Rx tabs metformin 500 mg tablet,extended See Rx Instructions . Route 04/22/24 10/17/24 Rx release 24 hr .COMPLEX #180 tabs cholecalciferol (vitamin D3) 1,250 1,250 mcg PO WEEKLY 05/02/24 10/17/24 History mcg (50,000 unit) capsule acetaminophen 500 mg tablet 1,000 mg (2 x 500 mg) PO T ID PRN 07/28/24 10/17/24 Rx carissa 7 days #42 tabs ibuprofen 800 mg tablet 800 mg PO TID PRN pain 7 day s #21 07/28/24 10/01/24 Rx tabs ondansetron 4 mg disintegrating 4 mg PO Q8H PRN nausea and 07/28/24 10/01/24 Rx tablet vomiting #30 tabs testosterone cypionate 200 mg/mL 200 mg subcut [id number] 10/01/24 10/01/24 History intramuscular oil tirzepatide 10 mg/0.5 mL 15 mg subcut WEEKLY 10/01/24 10/01/24 History subcutaneous pen injector Allergies Allergy/AdvReac Type Severity Reaction Status Date / Time No Known Allergies Allergy Verified 10/17/24 10:22 Vital Signs Vital Signs - 24 hr 10/17/24 10:24 Temperature 97.9 F Pulse Rate 101 H Respiratory Rate 16 Blood Pressure 140/88 Pulse Oximetry 99 Oxygen Delivery Room Air Exam Const: General: comfortable and no acute distress HENMT: Face/Nose/Sinus: Normal nares present Eyes: General: appearance normal, both eyes and all related structures Neck: Neck: no JVD Resp: Auscultation: clear to auscultation bilaterally Cardio: Rate: regular rate Rhythm: regular rhythm GI: Inspection: non-distended GI Palp: Yes Soft to palpation Skin: General skin exam: normal color Neuro: Speech: normal speech Extrem: General: normal to inspection Psych: Mental Status: mental status grossly normal Assessment and Plan Assessment and plan (1) Belching: Code(s): R14.2 - Eructation Status: Acute Assessment and Plan: egd (2) Abnormal CT of the abdomen: Code(s): R93.5 - Abnormal findings on diagnostic imaging of other abdominal regions, including retroperitoneum Status: Acute Assessment and Plan: colonoscopy
[2024-10-17 11:02] VITALS: BP 101/61; PULSE 99; RESP 16; O2SAT 99
--- NOTE | 2024-10-17 11:02 | S_PTH ---
PATIENT: Braden Cagle LOC: [facility]#:[id number] AGE/SX: 49/M ROOM: RE10/17/[address]: Charlie Argueta MD : 1975 BED: DIS: 10/17/2024 SPEC #: [id number] RECD: 10/17/24 11:16 STATUS: PRACHI REKenia #: [id number] TANMAY: 10/17/24 11:[address]: Charlie Argueta DEPT: [facility] Surgical RECD BY: Hung Roger ENTERED: 10/17/24 11:17 SP TYPE: Surgical OTHR DR: Fidel Rae MD Tissues: A - Colon Polypectomy B - Gastric Biopsy Procedures: Hematoxylin and Eosin Stain Gross and Microscopic Level 4
--- NOTE | 2024-10-17 11:02 | SUR.OPER ---
EGD START 1047, END 1049 COLONOSCOPY START 1053, END 1100
[2024-10-17 11:12] VITALS: BP 96/62; PULSE 92; RESP 16; O2SAT 99
[2024-10-17 11:22] VITALS: BP 121/88; PULSE 91; RESP 16; O2SAT 100
== END 2024-10-17 11:35 | disposition home or self-care (01) ==
PROVIDERS: PCP Family Medicine; Referring Provider Nurse Practitioner Family; Visit Provider Internal Medicine Gastroenterology
PROC: 0DJ08ZZ Inspection of Upper Intestinal Tract, Via Natural or Artificial Opening Endoscopic (ICD-10-PCS; CPT 45378; principal; 2024-10-17 11:30)
DX: R93.5 Abnormal findings on diagnostic imaging of other abdominal regions, including retroperitoneum (principal); D12.2 Benign neoplasm of ascending colon; K64.8 Other hemorrhoids; K57.30 Diverticulosis of large intestine without perforation or abscess without bleeding; K21.9 Gastro-esophageal reflux disease without esophagitis; E11.9 Type 2 diabetes mellitus without complications; E55.9 Vitamin D deficiency, unspecified; G47.33 Obstructive sleep apnea (adult) (pediatric); E29.1 Testicular hypofunction; R53.82 Chronic fatigue, unspecified; E66.9 Obesity, unspecified; Z68.39 Body mass index [BMI] 39.0-39.9, adult; Z79.84 Long term (current) use of oral hypoglycemic drugs; Z79.1 Long term (current) use of non-steroidal anti-inflammatories (NSAID); Z79.85 Long-term (current) use of injectable non-insulin antidiabetic drugs; Z87.19 Personal history of other diseases of the digestive system; Z82.49 Family history of ischemic heart disease and other diseases of the circulatory system
CPT/HCPCS: 43239; 45385; 82948; 88305; J2704; J7120

== ENCOUNTER 2024-11-08 04:56 | Inpatient (IN) | payer OTHER, SELFPAY ==
--- OUTSIDE RECORDS SUMMARY | 2017-04-26 07:00 | XMS_ITS | Continuity of Care Document ---
Author Organization [employer] Address [address] [facility] [address] [place] [address] Phone Care Team Providers Care Principal Java Software Engineer Name Role Phone Ailyn PT, DPT, Jack Unavailable Unavailab le Procedures Procedure Date Progress Note Therapeutic Exercise Neuromuscular Re-Ed Manual Therapy Therapeutic Exercise Therapeutic Activities Neuromuscular Re-Ed Manual Therapy Therapeutic Exercise Neuromuscular Re-Ed Manual Therapy Therapeutic Exercise Neuromuscular Re-Ed Manual Therapy Therapeutic Exercise Neuromuscular Re-Ed Manual Therapy Therapeutic Exercise Neuromuscular Re-Ed Manual Therapy Therapeutic Exercise Therapeutic Activities Neuromuscular Re-Ed Manual Therapy Therapeutic Exercise Therapeutic Activities Neuromuscular Re-Ed Manual Therapy Therapeutic Exercise Neuromuscular Re-Ed Manual Therapy Therapeutic Exercise Therapeutic Activities Neuromuscular Re-Ed Manual Therapy PT Evaluation Moderate Complexity Therapeutic Exercise Therapeutic Activities Advance Directives Directive Yes / No Effective Date File Name No Information Encounters Encounter Description Practice Location Reason(s) For Visit Diagnoses Date Provider Providers Copied on Encounter [facility], [address] [address], [place], [place], [id number], tel:[phone] [place] No Information Ailyn Santiago. . Referring Provider: Humphrey Ho, [address], [place], [address]. tel:[phone] [facility], [address], [place], [place], [id number], tel:[phone] [place] No Information Ailyn Santiago. . Referring Provider: Humphrey Tavarez [address], [place], [address]. tel:[phone] [place] [address], [address], [id number], [place] tel:[phone] [place] No Information Ailyn Santiago. . Referring Provider: Humphreymarcella Tavarez [address], [place], [address]. tel:[phone] [facility], [address] [facility] [address] [place] [address], [id number], [place] tel:[phone] [place] No Information Ailyn Santiago. . Referring Provider: Humphrey Tavarez [address], [place], [address]. tel:[phone] [facility], [address], [place], [place], [id number], [place] tel:[phone] [place] No Information Ailyn Santiago. . Referring Provider: Humphrey Tavarez [address], [place], [address]. tel:[phone] [facility], [address], [place], [place], [id number], [place] tel:[phone] [place] No Information Ailyn Santiago. . Referring Provider: Humphrey Corby, [address], [place], [address]. tel:[phone] [facility], [address] [address], [place], [place], [id number], tel:[phone] [place] No Information Ailyn Santiago. . Referring Provider: Humphrey Corby [address], [place], [address]. tel:[phone] [facility], [address], [id number], [place] tel:[phone] [place] No Information Ailyn Santiago. . Referring Provider: Humphrey Tavarez [address], [place], [address]. tel:[phone] [facility], [address], [id number], [place] tel:[phone] [place] No Information Ailyn Santiago. . Referring Provider: Humphrey Corby [address], [place], [address]. tel:[phone] [facility], [address], [id number], [place] tel:[phone] [place] No Information Ailyn Santiago. . Referring Provider: Humphrey Corby [address], [place], [address]. tel:[phone] [facility], [address], [id number], [place] tel:[phone] [place] Inj oth musc/tend at lower leg level, left leg, subs Ailyn Santiago. . Referring Provider: Humphrey Tavarez [address] [place], [address]. tel:[phone] Family History Family Member Type Diagnosis Age At Onset No Information Payers Payer name Insurance type Covered republican ID Authoriza lucinda(s) [facility] [id number] Social History Type Description Quantity Date Captured Comments Sex Male Smoking Status No Information Chief Complaint And Reason For Visit No Information Reason For Referral Reason For Referral No Information History Of Present Illness Encounter Date Complaint History Of Prese nt Illness No Information Functional Status Date Functional Assessmen t No Information Instructions Date Instruction Additional Infor mation No Information Assessments Type Assessment Date No Information Patient Care Teams Name Effective Dates (start - stop) Status Members No Information
[2024-11-08] VITALS (13 sets, daily range): BP systolic 134–155; BP diastolic 85–108; PULSE 82–117; RESP 14–20; TEMP 36.6; O2SAT 93–99; BMI 38.9
--- NOTE | ~2024-11-08 | CT_ITS ---
CT abdomen pelvis w con Clinical History: abd pain periumbilical, some LGIB . Comparison: 07/28/2024 Technique: Axial images lung bases to symphysis pubis IV contrast information not listed in PACS Coronal, sagittal reformats CT images acquired with automatic exposure control for dose reduction DLP: 1759 mGy-cm Findings: Lung bases: Clear. Visualized heart and pericardium: Unremarkable. Liver: Unremarkable. Gallbladder: Unremarkable. Spleen: Unremarkable. Pancreas: Unremarkable. Adrenal glands: Unremarkable. Kidneys: Right kidney- No hydronephrosis. No renal stones. Left kidney- No hydronephrosis. No renal stones. Distal esophagus/stomach: Unremarkable. Small bowel loops: Normal caliber and wall thickness. Colon: Persistent circumferential wall thickening and luminal narrowing proximal sigmoid. Normal RLQ appendix. Mild gaseous distention. Nodes: No enlarged nodes. Peritoneum: No ascites. No free air. Urinary bladder: Mild wall thickening but under distended. Prostate: Unremarkable. Bones: No acute bony abnormality. Soft tissues: Large umbilical hernia with fat. Minimal fat stranding along hernia neck. Aorta: No aneurysm or dissection. IVC: Unremarkable. Main portal vein/SMV/splenic vein: Patent. IMPRESSION: 1. Again highly worrisome for sigmoid colon malignancy. Recommend colonoscopy. 2. Large periumbilical hernia with fat. Minimal panniculitis at hernia neck. 3. Otherwise no acute abnormality. Reviewed, dictated and finalized at location R.
[2024-11-08] MEDS: MORPHINE SULFATE (*CRX) 4 MG/ML INJ IV PUSH (05:15)
[2024-11-08] MEDS: ONDANSETRON INJ 4 MG/2 ML VIAL IV PUSH (05:15)
[2024-11-08 05:16] LABS: Hematocrit 46.6 % (42.0-52.0); Hemoglobin 15.4 g/dL (14.0-18.0); Immature Granulocyte Percent A 0.6 % (0-0.5); Lymphocytes Absolute Auto 1.62 K/mm3 (0.9-3.2); Mean Corpuscular HGB Conc 33.0 g/dl (32-36); Mean Corpuscular Hemoglobin 28.9 pg (26-34); Mean Corpuscular Volume 87.6 fl (80-100); Nucleated Red Blood Cells Absolute Auto 0.000 K/mm3 (0.0-0.012); Nucleated Red Blood Cells Perc 0.0 % (0.0-0.2); Platelet Count Result 315 k/mm3 (150-375); Red Blood Count 5.32 M/mm3 (4.6-6.20); White Blood Count 8.8 K/mm3 (4.5-10.0)
[2024-11-08 05:30] LABS: Add Urine Microscopic? YES; Appearance Urine Cloudy (Clear); Glucose Urine UA Negative (Negative); Leukocyte Esterase Ur Negative LEU/UL (Negative); Nitrate Urine Negative (Negative); Non Pathogenic Casts 0-2; Specific Grav Ur 1.033 (1.001-1.035)
--- NOTE | 2024-11-08 05:36 | ED_ITS ---
HPI - Abdominal Pain General Chief Complaint: Abdominal Pain <Kaci Escudero MD - Last Filed: 11/08/24 07:22> Stated Complaint: abdominal pain <Kaci Escudero MD - Last Filed: 11/08/24 07:22> Time Seen by Provider: 11/08/24 05:01 <Kaci Escudero MD - Last Filed: 11/08/24 07:22> History of Present Illness HPI narrative: Patient with history of diverticulitis, umbilical hernia, diabetes on unsure presents here with pain in his periumbilical abdomen, on and off, first started 3 days ago, associated with some blood in his stool, subsided for a while, another bowel movement yesterday with scant amount of bright red blood, then a few hours ago woke from sleep with severe pain. Associated with some nausea when the pain is severe, the nausea has resolved. <Kaci Escudero MD - Last Filed: 11/08/24 07:22> Related Data Home Medications: Home Medications ?Medication ?Instructions ?Recorded ?Confirmed ?Last Taken ?Type cholecalciferol (vitamin D3) 1,250 1,250 mcg PO WEEKLY 05/02/24 11/08/24 11/07/24 08:00 History mcg (50,000 unit) capsule 1,250 mcg testosterone cypionate 200 mg/mL 200 mg subcut [id number] 10/01/24 11/08/24 11/03/24 08:00 History intramuscular oil 200 mg tirzepatide 10 mg/0.5 mL 15 mg subcut WEEKLY 10/01/24 11/08/24 11/03/24 08:00 History subcutaneous pen injector 15 mg <Kaci Escudero MD - Last Filed: 11/08/24 07:22> Allergies/Adverse Reactions: Allergies Allergy/AdvReac Type Severity Reaction Status Date / Time No Known Allergies Allergy Verified 11/08/24 14:26 <Kaci Escudero MD - Last Filed: 11/08/24 07:22> Review of Systems 2 Review of Systems: All systems reviewed & are unremarkable except as noted in HPI and below <Kaci Escudero MD - Last Filed: 11/08/24 07:22> PMFSH Past Medical History Medical History: Medical History Type 2 diabetes mellitus without complications HERON (obstructive sleep apnea) Decreased libido BMI 40.0-44.9, adult Acute bronchitis due to other specified organisms Acute pain of left foot Acute pain of right shoulder Acute sinusitis, unspecified Chronic fatigue Dietary counseling and surveillance (05/08/18) Diverticulitis Diverticulitis of large intestine without perforation or abscess Elevated glucose Infection of right eye Left lower quadrant pain Low serum testosterone Lung nodule Right hip pain Screening for lipid disorders Screening for prostate cancer Vitamin D deficiency Constipation Obese Adenomatous colon polyp Diverticulitis large intestine <Kaci Escudero MD - Last Filed: 11/08/24 07:22> Surgical History Surgical History: Surgical History Hx of colonoscopy <Kaci Escudero MD - Last Filed: 11/08/24 07:22> Family History Family History: Family History Mother Hypertension Father Heart disease Sibling No problems noted. Other Cerebrovascular accident Family history of coronary artery disease <Kaci Escudero MD - Last Filed: 11/08/24 07:22> Social History Social History: Social History Smoking status: Never smoker Second hand tobacco smoke exposure: Yes Alcohol intake: current Drinks per week: 24 Alcohol use details: beer Substance use: never Substance use type: does not use Do You Feel Safe in your Home?: Yes Lack of Transportation: No Lack of Food: Never True Current Housing: I Have Housing Concerned About Future Housing: No Difficulty Paying Gas/Electric Bills: No Difficulty Paying for Meds: No Currently Unemployed: No Education: High School Diploma/GED Difficulty w/ Childcare or Family Care: No Living arrangements: with family Occupation/Education: occupation 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 EYES: EOMI, conjunctiva normal ENT: Hearing grossly intact LUNGS: Nonlabored breathing. HEART: [Regular rate and rhythm] ABD: [Soft], umbilical hernia, some slight tenderness to the abdomen EXT: Normal range of motion SKIN: [No rashes or lesions.] No overlying skin changes over abdomen NEURO: [Alert and oriented x 3. No gross focal sensory or strength deficits.] PSYCH: Normal affect <Kaci Escudero MD - Last Filed: 11/08/24 07:22> Course Vital Signs Vital signs: Vital Signs Pulse Rate 95 11/08/24 05:01 Respiratory Rate 18 11/08/24 05:01 Blood Pressure 143/93 H 11/08/24 05:01 Pulse Oximetry 99 11/08/24 05:01 Oxygen Delivery Room Air 11/08/24 05:01 Temperature 97.8 F 11/08/24 06:58 Pulse Rate 94 11/08/24 13:00 Respiratory Rate 16 11/08/24 13:00 Blood Pressure 155/102 H 11/08/24 13:00 Pulse Oximetry 97 11/08/24 13:00 Oxygen Delivery Room Air 11/08/24 05:01 <Kaci Ecsudero MD - Last Filed: 11/08/24 07:22> Vital Signs Pulse Rate 95 11/08/24 05:01 Respiratory Rate 18 11/08/24 05:01 Blood Pressure 143/93 H 11/08/24 05:01 Pulse Oximetry 99 11/08/24 05:01 Oxygen Delivery Room Air 11/08/24 05:01 Temperature 97.8 F 11/08/24 06:58 Pulse Rate 94 11/08/24 13:00 Respiratory Rate 16 11/08/24 13:00 Blood Pressure 155/102 H 11/08/24 13:00 Pulse Oximetry 97 11/08/24 13:00 Oxygen Delivery Room Air 11/08/24 05:01 <Florencio Weber MD - Last Filed: 11/08/24 15:21> MDM - Abdominal Pain MDM Narrative Medical decision making narrative: Electronic medical record was reviewed. Patient presented to the ED with complaint of [abdominal pain and nausea, with some blood in his stool]. Vitals [were within acceptable limits]. Physical exam revealed soft abdomen, with some slight minimal tenderness to palpation periumbilical abdomen. Based on the patient's history and physical exam, my differential includes but is not limited to [gastritis, gastroenteritis, cholecystitis, pancreatitis, appendicitis]. [IV access was established by nursing staff. Patient was given zofran, famotidine]. CBC, BMP, lipase, LFTs, bilirubin and alk phos were obtained. Labs were pertinent for mildly elevated LFTs. On rectal exam, patient does have a hemorrhoid, no tenderness, no stool in the vault, Hemoccult positive. Patient has not had any bowel movement since yesterday 5:00 a.m. so I do not feel he needs emergent transfer for interventional radiologist at this time as he has no brisk GI bleed. Decision made to obtain CT abdomen/pelvis. On re-evaluation patient still having significant pain so additional pain medication ordered. Signed out pending CT read. <Kaci Escudero MD - Last Filed: 11/08/24 07:22> Electronic medical record was reviewed. Patient presented to the ED with complaint of [abdominal pain and nausea, with some blood in his stool]. Vitals [were within acceptable limits]. Physical exam revealed soft abdomen, with some slight minimal tenderness to palpation periumbilical abdomen. Based on the patient's history and physical exam, my differential includes but is not limited to [gastritis, gastroenteritis, cholecystitis, pancreatitis, appendicitis]. [IV access was established by nursing staff. Patient was given zofran, famotidine]. CBC, BMP, lipase, LFTs, bilirubin and alk phos were obtained. Labs were pertinent for mildly elevated LFTs. On rectal exam, patient does have a hemorrhoid, no tenderness, no stool in the vault, Hemoccult positive. Patient has not had any bowel movement since yesterday 5:00 a.m. so I do not feel he needs emergent transfer for interventional radiologist at this time as he has no brisk GI bleed. Decision made to obtain CT abdomen/pelvis. On re-evaluation patient still having significant pain so additional pain medication ordered. Signed out pending CT read. --- Patient's pain is poorly controlled in the emergency department. Case was discussed with GI and patient will be admitted to the hospitalist with GI consult for further evaluation and pain control. Patient reports he had a similar episode to this approximately 2 weeks ago when he took his tirzepatide his testosterone at same time. Patient took both the same time just a few days ago and had similar lower abdominal pain. Patient family updated results of the workup plan for admission. All questions concerns were addressed. <Florencio Weber MD - Last Filed: 11/08/24 15:21> Differential Diagnosis Differential diagnosis: Likely abdominal pain, acute appendicitis, calculus of kidney, diverticulitis, gastroenteritis, pancreatitis and small bowel obstruction <Florencio Weber MD - Last Filed: 11/08/24 15:21> Lab Data Attestation: I reviewed the patient's lab results. <Florencio Weber MD - Last Filed: 11/08/24 15:21> Result diagrams: 11/08/24 05:11 11/08/24 05:11 <Kaci Escudero MD - Last Filed: 11/08/24 07:22> Labs: Lab Results 11/08/24 11/08/24 Range/Units 05:11 05:18 WBC 8.8 (4.5-10.0) K/mm3 RBC 5.32 (4.6-6.20) M/mm3 Hgb 15.4 (14.0-18.0) g/dL Hct 46.6 (42.0-52.0) % MCV 87.6 (80-100) fl MCH 28.9 (26-34) pg MCHC 33.0 (32-36) g/dl RDW 13.7 (11.5-14.5) % Plt Count 315 (150-375) k/mm3 MPV 10.1 (7.4-10.4) fl Immature Gran % (Auto) 0.6 H (0-0.5) % Neut % (Auto) 68.8 (45.5-73.1) % Lymph % (Auto) 18.3 (18.3-44.2) % [place] % (Auto) 8.6 H (2.6-8.5) % Eos % (Auto) 2.7 (0-4.4) % Baso % (Auto) 1.0 (0.2-1.2) % Lymph # (Auto) 1.62 (0.9-3.2) K/mm3 [place] # (Auto) 0.8 H (0.1-0.6) K/mm3 Eos # (Auto) 0.2 (0-0.3) K/mm3 Baso # (Auto) 0.1 (0.0-0.1) K/mm3 Abs Immat Gran (auto) 0.05 H (0.00-0.031) K/mm3 Absolute Neuts (auto) 6.1 (1.3-6.7) K/mm3 Absolute Nucleated RBC 0.000 (0.0-0.012) K/mm3 Nucleated RBC % 0.0 (0.0-0.2) % Sodium 137 (137-145) mmol/L Potassium 3.9 (3.4-5.0) mmol/L Chloride 103 (98-107) mmol/L Carbon Dioxide 23 (22-30) mmol/L Anion Gap 11 (4-12) mmol/L BUN 15 (9-20) mg/dL Creatinine 1.04 (0.7-1.3) mg/dL Estim Creat Clear Calc 104 ml/min Estimated GFR > 60 (59 - ) Glucose 152 H (65-110) mg/dL Calcium 9.2 (8.4-10.2) mg/dL Total Bilirubin 1.0 (0.2-1.3) mg/dL AST 68 H (17-59) U/L ALT 79 H (6-50) U/L Alkaline Phosphatase 130 H (38-126) U/L Total Protein 7.7 (6.3-8.2) g/dL Albumin 4.4 (3.5-5.1) g/dL Lipase 49 (23-300) U/L Urine Color Dark yellow (Yellow) Urine Appearance Cloudy H (Clear) Urine pH 5.0 (5.0-9.0) Ur Specific [place] 1.033 (1.001-1.035) Urine Protein Trace (Negative) mg/dL Urine Glucose (UA) Negative (Negative) mg/dL Urine Ketones Negative (Negative) mg/dL Ur Blood (Man) Negative (Negative) Urine Nitrate Negative (Negative) Urine Bilirubin 1+ H (Negative) Urine Urobilinogen 1.0 (<2.0) mg/dL Leukocyte Esterase Rfl Negative (Negative) TRISTEN/UL Urine RBC 0-2 (0-2) /hpf Urine WBC 6-10 H (0-3) /hpf Ur Squamous Epith Cells Occasional (Few) /hpf Urine Bacteria None seen /hpf Urine Casts 0-2 <Kaci Escudero MD - Last Filed: 11/08/24 07:22> Lab Results 11/08/24 11/08/24 Range/Units 05:11 05:18 WBC 8.8 (4.5-10.0) K/mm3 RBC 5.32 (4.6-6.20) M/mm3 Hgb 15.4 (14.0-18.0) g/dL Hct 46.6 (42.0-52.0) % MCV 87.6 (80-100) fl MCH 28.9 (26-34) pg MCHC 33.0 (32-36) g/dl RDW 13.7 (11.5-14.5) % Plt Count 315 (150-375) k/mm3 MPV 10.1 (7.4-10.4) fl Immature Gran % (Auto) 0.6 H (0-0.5) % Neut % (Auto) 68.8 (45.5-73.1) % Lymph % (Auto) 18.3 (18.3-44.2) % [place] % (Auto) 8.6 H (2.6-8.5) % Eos % (Auto) 2.7 (0-4.4) % Baso % (Auto) 1.0 (0.2-1.2) % Lymph # (Auto) 1.62 (0.9-3.2) K/mm3 [place] # (Auto) 0.8 H (0.1-0.6) K/mm3 Eos # (Auto) 0.2 (0-0.3) K/mm3 Baso # (Auto) 0.1 (0.0-0.1) K/mm3 Abs Immat Gran (auto) 0.05 H (0.00-0.031) K/mm3 Absolute Neuts (auto) 6.1 (1.3-6.7) K/mm3 Absolute Nucleated RBC 0.000 (0.0-0.012) K/mm3 Nucleated RBC % 0.0 (0.0-0.2) % Sodium 137 (137-145) mmol/L Potassium 3.9 (3.4-5.0) mmol/L Chloride 103 (98-107) mmol/L Carbon Dioxide 23 (22-30) mmol/L Anion Gap 11 (4-12) mmol/L BUN 15 (9-20) mg/dL Creatinine 1.04 (0.7-1.3) mg/dL Estim Creat Clear Calc 104 ml/min Estimated GFR > 60 (59 - ) Glucose 152 H (65-110) mg/dL Calcium 9.2 (8.4-10.2) mg/dL Total Bilirubin 1.0 (0.2-1.3) mg/dL AST 68 H (17-59) U/L ALT 79 H (6-50) U/L Alkaline Phosphatase 130 H (38-126) U/L Total Protein 7.7 (6.3-8.2) g/dL Albumin 4.4 (3.5-5.1) g/dL Lipase 49 (23-300) U/L Urine Color Dark yellow (Yellow) Urine Appearance Cloudy H (Clear) Urine pH 5.0 (5.0-9.0) Ur Specific [place] 1.033 (1.001-1.035) Urine Protein Trace (Negative) mg/dL Urine Glucose (UA) Negative (Negative) mg/dL Urine Ketones Negative (Negative) mg/dL Ur Blood (Man) Negative (Negative) Urine Nitrate Negative (Negative) Urine Bilirubin 1+ H (Negative) Urine Urobilinogen 1.0 (<2.0) mg/dL Leukocyte Esterase Rfl Negative (Negative) TRISTEN/UL Urine RBC 0-2 (0-2) /hpf Urine WBC 6-10 H (0-3) /hpf Ur Squamous Epith Cells Occasional (Few) /hpf Urine Bacteria None seen /hpf Urine Casts 0-2 <Florencio Weber MD - Last Filed: 11/08/24 15:21> Imaging Data Radiologist's impression: ITS Impressions Abdomen/Pelvis CT 11/08/24 07:28 IMPRESSION: 1. Again highly worrisome for sigmoid colon malignancy. Recommend colonoscopy. 2. Large periumbilical hernia with fat. Minimal panniculitis at hernia neck. 3. Otherwise no acute abnormality. <Kaci Escudero MD - Last Filed: 11/08/24 07:22> ITS Impressions Abdomen/Pelvis CT 11/08/24 07:28 IMPRESSION: 1. Again highly worrisome for sigmoid colon malignancy. Recommend colonoscopy. 2. Large periumbilical hernia with fat. Minimal panniculitis at hernia neck. 3. Otherwise no acute abnormality. <Florencio Weber MD - Last Filed: 11/08/24 15:21> Discharge Plan Discharge Clinical Impression: Abdominal pain <Kaci Escudero MD - Last Filed: 11/08/24 07:22> Patient Disposition: Still a Patient <Kaci Escudero MD - Last Filed: 11/08/24 07:22> Condition: Stable <Kaci Escudero MD - Last Filed: 11/08/24 07:22>
[2024-11-08 05:42] LABS: Alanine Aminotransferase 79 U/L (6-50); Albumin Level 4.4 g/dL (3.5-5.1); Alkaline Phosphatase 130 U/L (38-126); Anion Gap 11 mmol/L (4-12); Aspartate Amino Transferase 68 U/L (17-59); Bilirubin,Total 1.0 mg/dL (0.2-1.3); Blood Urea Nitrogen 15 mg/dL (9-20); Calcium 9.2 mg/dL (8.4-10.2); Carbon Dioxide 23 mmol/L (22-30); Chloride 103 mmol/L (98-107); Estimated CRCL calculation 104 ml/min; Estimated Glomerular Filt Rate > 60; Glucose 152 mg/dL (65-110); Lipase 49 U/L (23-300); Potassium 3.9 mmol/L (3.4-5.0); Sodium 137 mmol/L (137-145); Total Protein 7.7 g/dL (6.3-8.2)
--- OUTSIDE RECORDS SUMMARY | 2024-11-08 05:54 | XMS_ITS | Clinical Summary ---
Author Organization [facility] Address [address] [place] [id number] Care Team Providers Care Completion Manager Name Role Phone Fidel Rae MD Primary Care Provider [phone] Allergies No known active allergies Medications ondansetron [...] COVID-19 Vaccine (1 - 2023-2 5 season) 2024 Meningococcal B Vaccine Aged Out No l onger eligible based on patient's age to complete this topic Meningococcal Vaccine Aged Out No akry calvin eligible based on patient's age to complete this topic RSV Immunizations Under 20 Months Aged Out No longer eligible based on patient's age to complete this topic Insurance Care Teams Completion Manager Relationship Specialty Start Date End Date Fidel Rae MD [address] [place] [id number] PCP - General FAMILY PRACTICE 09/30/18
--- OUTSIDE RECORDS SUMMARY | 2024-11-08 05:54 | XMS_ITS | Clinical Summary ---
Author Organization [facility] Address [address] [place] [address] Care Team Providers Care Supervisor Sunglasses Name Role Phone Unavailable Primary Care Provider Unavailabl e Source Comments [facility],non-owned Affiliates and Associated Physician Practices is amultiple site organization consisting of ambulatory clinics and hospital sitesin [place], [place], [place] and [place]. This disclosure is being madepursuant to the Care Everywhere program and may not contain all information available regarding this patient. Last updated 17.[facility] Medications * Be aware that medications may [...] 09/09/2023 ZOSTER VACCINE (1 of 2) 09/09/2023 DEPRESSION SCREENING 02/20/2024 COVID-19 VACCINE (3 - 2024-2 6 season) 2024 06/08/2020, 05/18/2020 INFLUENZA VACCINE (#1) 2024 HIB VACCINE Aged Out No longer [...] patient's age to complete this topic Insurance [employer] SELF PAY NO INSURANCE Member Subscriber Plan / Payer (Ef fective for All Dates) Name:Braden Cagle Member ID:Not on file Relation to Subscriber:Not on file Name:BRADEN CAGLE Subscriber ID:Not on file (Home) Address: [address] [place] [id number] Payer ID:Not on file Group ID:Not on file Type:Self Pay Address: [place], [place]
[2024-11-08] MEDS: HYDROmorphone HCL INJ (*CRX) 1 MG/ML SYR 0.5 MG IV PUSH ×3 (06:20→20:21)
[2024-11-08] MEDS: HYDROmorphone HCL INJ (*CRX) 1 MG/ML SYR IV PUSH (09:43)
[2024-11-08] MEDS: LACTATED RINGERS 1,000 ML 125 ML IV CONT ×2 (14:04→22:10)
--- NOTE | 2024-11-08 14:08 | ADMGEN ---
This patient, Braden Cagle, was admitted to Medical Room 347-. Patient/family oriented to hospital policies and general routines including ID bracelet, bed and alarms, visiting hours, pain management, procedures, bathroom and other care routines, personal items, smoking policy, room service/diet, and visiting hours. Information on how to activate the Rapid Response Team has been discussed. Patient/Family are encouraged to report perceived risks to care and to ask questions if they do not understand what they are told or what they should do.
--- NOTE | 2024-11-08 15:23 | P.HP_ITS ---
H&P: HPI History of Present Illness Date/Time: 11/08/24 15:23 Chief Complaint: Acute abdominal pain Narrative: 49-year-old male past medical history of diabetes, diverticulitis, low testosterone, presents the hospital with acute abdominal pain. Patient states the pain started about 3 days ago and has some blood in his stool. Today the pain became severe and woke him up from sleep any and nausea so he presented to the hospital. Patient states that he started having abdominal pain on Sunday followed by about 3 days of diarrhea. He states that he started taking Imodium 2 on night into on Sunday morning since then he has not had any diarrhea. He states that the abdominal pain has been about the same whenever he was having diarrhea and now. He rates it 8/10. Denies vomiting. Patient denies pain and his hernia. Lab work shows hemoglobin of 15.4, BMP within normal limits, glucose 152, AST 60 a ALT 79, alkaline phos 130, UA is cloudy with 6-10 wbc's negative for leukocyte esterase negative for nitrates. CT abdomen pelvis show Again highly worrisome for sigmoid colon malignancy, and Large periumbilical hernia with fat. Minimal panniculitis at hernia neck. GI and surgery consulted. Hernia is soft, easily reducible, nonpainful to palpation and no erythema. Patient had a colonoscopy on 10/17/2024 or is found to have diverticula with no active bleeding, polyp excisions sent to biopsy and internal hemorrhoids. Review of Systems Review of Systems: 12 systems were reviewed and are negativ e except for as per HPI. [facility] Past Medical History Medical History Type 2 diabetes mellitus without complications HERON (obstructive sleep apnea) Decreased libido BMI 40.0-44.9, adult Acute bronchitis due to other specified organisms Acute pain of left foot Acute pain of right shoulder Acute sinusitis, unspecified Chronic fatigue Dietary counseling and surveillance (05/08/18) Diverticulitis Diverticulitis of large intestine without perforation or abscess Elevated glucose Infection of right eye Left lower quadrant pain Low serum testosterone Lung nodule Right hip pain Screening for lipid disorders Screening for prostate cancer Vitamin D deficiency Constipation Obese Adenomatous colon polyp Diverticulitis large intestine Surgical History Surgical History Hx of colonoscopy Family History Family History Mother Hypertension Father Heart disease Sibling No problems noted. Other Cerebrovascular accident Family history of coronary artery disease Social History Social History Smoking status: Never smoker Second hand tobacco smoke exposure: Yes Alcohol intake: current Drinks per week: 24 Alcohol use details: beer Substance use: never Substance use type: does not use Do You Feel Safe in your Home?: Yes Lack of Transportation: No Lack of Food: Never True Current Housing: I Have Housing Concerned About Future Housing: No Difficulty Paying Gas/Electric Bills: No Difficulty Paying for Meds: No Currently Unemployed: No Education: High School Diploma/GED Difficulty w/ Childcare or Family Care: No Living arrangements: with family Occupation/Education: occupation 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 Gender identity (if verbalized by the patient): Male Spiritual care concerns: No Meds Home Medications and Allergies Home Medications ?Medication ?Instructions ?Recorded ?Confirmed ?Type esomeprazole magnesium 40 mg 40 mg PO DAILY #30 caps 1 11/08/24 Rx capsule,delayed release (Nexium) blood sugar diagnostic (OneTouch #100 ea 08/30/2310/21 Rx Verio test strips) lancets 30 gauge (OneTouch Delica #100 ea 01/02/24 Rx Plus Lancet) cholecalciferol (vitamin D3) 1,250 1,250 mcg PO WEEKLY 05/02/24 11/08/24 History mcg (50,000 unit) capsule acetaminophen 500 mg tablet 1,000 mg (2 x 500 mg) PO T ID PRN 07/28/24 11/08/24 Rx carissa 7 days #42 tabs ibuprofen 800 mg tablet 800 mg PO TID PRN pain 7 day s #21 07/28/24 11/08/24 Rx tabs ondansetron 4 mg disintegrating 4 mg PO Q8H PRN nausea and 07/28/24 11/08/24 Rx tablet vomiting #30 tabs testosterone cypionate 200 mg/mL 200 mg subcut [id number] 10/01/24 11/08/24 History intramuscular oil tirzepatide 10 mg/0.5 mL 15 mg subcut WEEKLY 10/01/24 11/08/24 History subcutaneous pen injector Allergies Allergy/AdvReac Type Severity Reaction Status Date / Time No Known Allergies Allergy Verified 11/08/24 14:26 Vital Signs Vital Signs - 24 hr 11/08/24 05:01 11/08/24 06:58 11/08/24 07:30 Temperature 97.8 F Pulse Rate 95 82 86 Respiratory Rate 18 18 16 Blood Pressure 143/93 H 143/86 H 149/95 H Pulse Oximetry 99 96 98 Oxygen Delivery Room Air 11/08/24 08:30 11/08/24 09:30 11/08/24 10:30 Temperature Pulse Rate 85 87 95 Respiratory Rate 16 16 16 Blood Pressure 153/99 H 155/108 H 148/103 H Pulse Oximetry 95 96 97 Oxygen Delivery 11/08/24 11:30 11/08/24 11:30 11/08/24 12:00 Temperature Pulse Rate 90 90 86 Respiratory Rate 16 14 20 Blood Pressure 153/101 H 134/96 H 149/100 H Pulse Oximetry 96 96 95 Oxygen Delivery 11/08/24 13:00 Temperature Pulse Rate 94 Respiratory Rate 16 Blood Pressure 155/102 H Pulse Oximetry 97 Oxygen Delivery Exam Narrative: General: well appearing, appears stated age. HEENT: normocephalic, atraumatic. Mucous membranes moist. EOMI, PERRLA, bilateral sclera anicteric, no conjunctival injection. Neck supple without JVD, lymphadenopathy, or bruit. Respiratory: clear to ascultation bilaterally. No rales/rhonic/wheezes. Cardiovascular: Regular rate and rhythm, normal S1-S2 upon ascultation. No murmurs, rubs, or clicks. PMI is nondisplaced, capillary refill less than 3 second. Abdomen: Soft, round, no pulsatile masses, nondistended and nontender. No rebound, no guarding. No CVA tenderness, no hepatosplenomegaly. Bowel sounds present to all four quadrants. No high pitch or tinkling sounds, resonant to percussion. Extremities: No cyanosis, clubbing, or edema present. Pulses are palpable 2/2. Active ROM to all four extremities. Neuro: Alert and orientated x 4. PERRLA. Cranial nerves 2-12 intact without focal deficit. Skin: Warm, dry, and intact, without rash, erythema, or lesion. Psych: pleasant, cooperative, normal speech, normal affect, no hallucinations, no dysarthia H&P: Results Labs Labs: Short CBC 11/08/24 Range/Units 05:11 WBC 8.8 (4.5-10.0) K/mm3 Hgb 15.4 (14.0-18.0) g/dL Hct 46.6 (42.0-52.0) % Plt Count 315 (150-375) k/mm3 BMP 11/08/24 05:11 Sodium 137 Potassium 3.9 Chloride 103 Carbon Dioxide 23 BUN 15 Creatinine 1.04 Glucose 152 H Calcium 9.2 Liver Function 11/08/24 Range/Units 05:11 Total Bilirubin 1.0 (0.2-1.3) mg/dL AST 68 H (17-59) U/L ALT 79 H (6-50) U/L Alkaline Phosphatase 130 H (38-126) U/L Albumin 4.4 (3.5-5.1) g/dL Urine 11/08/24 Range/Units 05:18 Urine Color Dark yellow (Yellow) Urine Appearance Cloudy H (Clear) Urine pH 5.0 (5.0-9.0) Ur Specific [place] 1.033 (1.001-1.035) Urine Protein Trace (Negative) mg/dL Urine Glucose (UA) Negative (Negative) mg/dL Assessment and Plan Assessment and plan (1) Abdominal pain: Code(s): R10.9 - Unspecified abdominal pain Status: Acute Assessment and Plan: Persistent circumferential wall thickening and luminal narrowing proximal sigmoid. Normal RLQ appendix. Mild gaseous distention. Denies pain is hernia Patient states he takes monitor on Sunday and has been on that dose for 4 months however he has never taken Imodium within, wonder if this is reason for gaseous distension due to slow transit time Toradol and Tylenol for pain control referred over narcotics Mylanta Frequent walks Okay for clear liquid diet (2) Diverticulitis large intestine: Qualifiers: Diverticulitis bleeding: unspecified bleeding status Diverticulitis complication: unspecified complication status Qualified Code(s): K57.32 - Diverticulitis of large intestine without perforation or abscess without bleeding Code(s): K57.32 - Diverticulitis of large intestine without perforation or abscess without bleeding Status: Acute Assessment and Plan: No signs of infection at this time GI consult (3) Umbilical hernia: Code(s): K42.9 - Umbilical hernia without obstruction or gangrene Status: Acute Assessment and Plan: Large periumbilical hernia with fat. Minimal panniculitis at hernia neck. Surgery consulted Hernia is soft, easily reducible, no pain on palpation and non erythremic (4) Type 2 diabetes mellitus without complications: Qualifiers: Diabetes mellitus supervisor intermediates insulin use: without supervisor intermediates use Qualified Code(s): E11.9 - Type 2 diabetes mellitus without complications Code(s): E11.9 - Type 2 diabetes mellitus without complications Status: Acute Assessment and Plan: Patient takes Tresiba Mondays Accu-Cheks a.cDigna SSI Hypoglycemia protocol (5) Bloody stools: Code(s): K92.1 - Melena Status: Acute Assessment and Plan: Likely from internal hemorrhoids, hemoglobin within normal limits No signs of acute bleeding (6) Hiccups: Code(s): R06.6 - Hiccough Status: Acute Assessment and Plan: Schedule Reglan for 24 hours Quality VTE Prophylaxis VTE prophylaxis: mechanical ordered and pharmacologic ordered Hospitalist MIPS Advance Care Plan I have confirmed that the patient's Advanced Care Plan is present, code status is documented, or surrogate decision maker is listed in patient medical record.: Yes Medication Reconciliation I have utilized all available resources to obtain, update and review the patients current medications (includes all prescriptions, OTC, herbals, cannabis, and nutritional supplements).: Yes
[2024-11-08] MEDS: METOCLOPRAMIDE HCL INJ 10 MG/2 ML VIAL IV PUSH (16:56)
[2024-11-08] MEDS: KETOROLAC 15 MG/ML VIAL (*BKC) IV PUSH (16:57)
[2024-11-08] MEDS: MAG HYDROX/AL HYDROX/SIMETH 30 ML UDC PO (16:57)
[2024-11-08] MEDS: ACETAMINOPHEN 325 MG TABLET 650 MG PO (20:19)
[2024-11-09] MEDS: METOCLOPRAMIDE HCL INJ 10 MG/2 ML VIAL IV PUSH ×4 (00:32→16:59)
[2024-11-09] MEDS: KETOROLAC 15 MG/ML VIAL (*BKC) IV PUSH ×5 (00:32→23:00)
[2024-11-09 03:18] VITALS: O2SAT 96
[2024-11-09 05:48] VITALS: BP 135/86; PULSE 108; RESP 18; TEMP 36.6; O2SAT 98
[2024-11-09 05:56] LABS: Hematocrit 47.3 % (42.0-52.0); Hemoglobin 15.5 g/dL (14.0-18.0); Immature Granulocyte Percent A 0.3 % (0-0.5); Lymphocytes Absolute Auto 0.99 K/mm3 (0.9-3.2); Mean Corpuscular HGB Conc 32.8 g/dl (32-36); Mean Corpuscular Hemoglobin 28.7 pg (26-34); Mean Corpuscular Volume 87.4 fl (80-100); Nucleated Red Blood Cells Absolute Auto 0.000 K/mm3 (0.0-0.012); Nucleated Red Blood Cells Perc 0.0 % (0.0-0.2); Platelet Count Result 365 k/mm3 (150-375); Red Blood Count 5.41 M/mm3 (4.6-6.20); White Blood Count 12.5 K/mm3 (4.5-10.0)
[2024-11-09 06:20] LABS: Anion Gap 11 mmol/L (4-12); Blood Urea Nitrogen 21 mg/dL (9-20); Calcium 8.7 mg/dL (8.4-10.2); Carbon Dioxide 22 mmol/L (22-30); Chloride 102 mmol/L (98-107); Estimated CRCL calculation 104 ml/min; Estimated Glomerular Filt Rate > 60; Glucose 178 mg/dL (65-110); Potassium 3.8 mmol/L (3.4-5.0); Sodium 135 mmol/L (137-145)
[2024-11-09] MEDS: LACTATED RINGERS 1,000 ML 125 ML IV CONT ×3 (08:37→23:56)
--- NOTE | 2024-11-09 08:43 | P.PNIM_ITS ---
Progress Note: A&P Assessment and Plan (1) Abdominal pain: Code(s): R10.9 - Unspecified abdominal pain Status: Acute Assessment and Plan: * CT Abd/Pelvis: * Again highly worrisome for sigmoid colon malignancy. Recommend colonoscopy. * Large periumbilical hernia with fat. Minimal panniculitis at hernia neck. * Otherwise no acute abnormality. * Persistent circumferential wall thickening and luminal narrowing proximal sigmoid. Normal RLQ appendix. Mild gaseous distention. * Denies pain in hernia * Toradol and Tylenol for pain control preferred over narcotics * NPO * GI consulted - pending (2) Diverticulitis large intestine: Qualifiers: Diverticulitis bleeding: unspecified bleeding status Diverticulitis complication: unspecified complication status Qualified Code(s): K57.32 - Diverticulitis of large intestine without perforation or abscess without bleeding Code(s): K57.32 - Diverticulitis of large intestine without perforation or abscess without bleeding Status: Acute Assessment and Plan: * No signs of infection at this time * GI consult (3) Umbilical hernia: Code(s): K42.9 - Umbilical hernia without obstruction or gangrene Status: Acute Assessment and Plan: * Large periumbilical hernia with fat. Minimal panniculitis at hernia neck. * Hernia is soft, easily reducible, no pain on palpation and non erythremic * Surgery consulted - pending (4) Type 2 diabetes mellitus without complications: Qualifiers: Diabetes mellitus termite control representative insulin use: without snf use Qualified Code(s): E11.9 - Type 2 diabetes mellitus without complications Code(s): E11.9 - Type 2 diabetes mellitus without complications Status: Acute Assessment and Plan: * Patient takes Tresiba Mondays * Accu-Chearcelia a.cDigna HS * SSI * Hypoglycemia protocol (5) Bloody stools: Code(s): K92.1 - Melena Status: Acute Assessment and Plan: * Likely from internal hemorrhoids, hemoglobin within normal limits * No signs of acute bleeding (6) Hiccups: Code(s): R06.6 - Hiccough Status: Acute Assessment and Plan: * Schedule Reglan for 24 hours Subjective Date/time seen: 11/09/24 08:43 Interval history: 49-year-old male past medical history of diabetes, diverticulitis, low testosterone, presents the hospital with acute abdominal pain. Patient states the pain started about 3 days ago and has some blood in his stool. 11/09/2024 Patient sitting comfortably in bed at time examination. Accompanied by . Denies any chest pain, shortness a breath, nausea/vomiting this time. Still has some generalized abdominal discomfort, more localized to the right side of the abdomen. GI/general surgery consult still pending. Bowel movement passed this AM. Review of Systems Review of Systems: 12 systems were reviewed and are negativ e except for as per HPI. Exam Narrative: General: well appearing, appears stated age. HEENT: normocephalic, atraumatic. Mucous membranes moist. EOMI, PERRLA, bilateral sclera anicteric, no conjunctival injection. Neck supple without JVD, lymphadenopathy, or bruit. Respiratory: clear to auscultation bilaterally. No rales/rhonchi/wheezes. Cardiovascular: Regular rate and rhythm, normal S1-S2 upon auscultation. No murmurs, rubs, or clicks. Abdomen: Generalized TTP, worse in RUQ. Soft, round, no pulsatile masses. . No rebound, no guarding. No CVA tenderness, no hepatosplenomegaly. Bowel sounds present to all four quadrants. No high pitch or tinkling sounds, resonant to percussion. Extremities: No cyanosis, clubbing, or edema present. Pulses are palpable 2/2. Active ROM to all four extremities. Neuro: Alert and orientated x 4. PERRLA. Cranial nerves 2-12 intact without focal deficit. Skin: Warm, dry, and intact, without rash, erythema, or lesion. Psych: pleasant, cooperative, normal speech, normal affect, no hallucinations, no dysarthia Objective Data Vital Signs Vital Signs: Vital Signs - 24 hr 11/08/24 09:30 11/08/24 10:30 11/08/24 11:30 Temperature Pulse Rate 87 95 90 Respiratory Rate 16 16 16 Blood Pressure 155/108 H 148/103 H 153/101 H Pulse Oximetry 96 97 96 Oxygen Delivery Fraction of Inspired Oxygen 11/08/24 11:30 11/08/24 12:00 11/08/24 13:00 Temperature Pulse Rate 90 86 94 Respiratory Rate 14 20 16 Blood Pressure 134/96 H 149/100 H 155/102 H Pulse Oximetry 96 95 97 Oxygen Delivery Fraction of Inspired Oxygen 11/08/24 20:00 11/08/24 20:44 11/08/24 22:30 Temperature Pulse Rate 112 H 117 H Respiratory Rate 18 20 Blood Pressure Pulse Oximetry 97 93 95 Oxygen Delivery Room Air Room Air Autopap Fraction of Inspired Oxygen 21 21 11/08/24 22:41 11/09/24 03:18 11/09/24 05:48 Temperature 97.9 F 97.9 F Pulse Rate 112 H 108 H Respiratory Rate 18 18 Blood Pressure 143/85 H 135/86 Pulse Oximetry 97 96 98 Oxygen Delivery Autopap Fraction of Inspired Oxygen Intake/Output Intake/Output: Intake & Output 11/06/24 11/07/24 11/08/24 11/09/24 23:59 23:59 23:59 23:59 Intake Total 2029 1399 Balance 2029 1400 Meds/Results Medications: Active Medications Generic Name Dose Route Start Last Admin Trade Name Freq PRN Reason Stop Dose Admin Acetaminophen 650 mg 11/08/24 21:00 11/09/24 08:41 Acetaminophen 325 Mg Tablet PO Not Given Q6H BRENDEN Al Hydrox/Mg Hydrox/Simethicone 30 ml 11/08/24 16:26 Mag Hydrox/Al Hydrox/Simeth 30 Ml Udc PO QID PRN Dyspepsia Dextrose 12.5 gm 11/08/24 16:26 Dextrose 50% 25 Gm/50 Ml Syringe IV PUSH PRN PRN Hypoglycemia Protocol Glucagon 1 mg 11/08/24 16:26 Glucagon For Inj 1 Mg Vial IM PRN PRN Hypoglycemia Protocol Glucose 15 gm 11/08/24 16:26 Glucose Oral Gel 15 Gm Of Glucse In 37.5 Gm Tube PO PRN PRN Hypoglycemia Protocol Hydromorphone HCl 0.5 mg 11/08/24 12:57 11/08/24 20:21 Hydromorphone Hcl Inj (*Crx) 1 Mg/Ml Syr IV PUSH 0.5 mg Q4H PRN Administration Pain Rated 7-10 Lactated Ringer's 1,000 mls @ 125 mls/hr 11/08/24 13:00 11/09/24 08:37 Lr - Lactated Ringers Iv IV CONT 125 mls/hr .Q8H BRENDEN Administration Dextrose 1,000 mls @ 100 mls/hr 11/08/24 16:26 Dextrose 5% 1,000 Ml IVPB PRN PRN Hypoglycemia Protocol Insulin Aspart 2 - 5 units 11/08/24 17:00 11/09/24 08:42 Insulin Aspart (*Bkc) 100 Units/Ml SUB-Q Not Given TIDWM [facility] Protocol Ketorolac Tromethamine 15 mg 11/08/24 17:00 11/09/24 05:43 Ketorolac 15 Mg/Ml Vial (*Bkc) IV PUSH 15 mg Q6HR BRENDEN Administration Metoclopramide HCl 10 mg 11/08/24 18:00 11/09/24 05:43 Metoclopramide Hcl Inj 10 Mg/2 Ml Vial IV PUSH 11/09/24 21:00 10 mg Q6HR BRENDEN Administration Ondansetron HCl 4 mg 11/08/24 12:57 Ondansetron Inj 4 Mg/2 Ml Vial IV PUSH Q4H PRN Nausea Pantoprazole Sodium 40 mg 11/09/24 09:00 11/09/24 08:41 Pantoprazole 40 Mg Tablet PO Not Given QAM [facility] Radiology Results: ITS Impressions Abdomen/Pelvis CT 11/08/24 07:28 IMPRESSION: 1. Again highly worrisome for sigmoid colon malignancy. Recommend colonoscopy. 2. Large periumbilical hernia with fat. Minimal panniculitis at hernia neck. 3. Otherwise no acute abnormality. Labs Labs: Laboratory Results - last 24 hr 11/08/24 11/08/24 11/08/24 15:50 17:16 20:06 WBC RBC Hgb Hct MCV MCH MCHC RDW Plt Count MPV Immature Gran % (Auto) Neut % (Auto) Lymph % (Auto) Ward % (Auto) Eos % (Auto) Baso % (Auto) Lymph # (Auto) Ward # (Auto) Eos # (Auto) Baso # (Auto) Abs Immat Gran (auto) Absolute Neuts (auto) Absolute Nucleated RBC Nucleated RBC % Sodium Potassium Chloride Carbon Dioxide Anion Gap BUN Creatinine Estim Creat Clear Calc Estimated GFR Glucose POC Capillary Glucose 148 H 170 H Lactic Acid 1.0 Calcium 11/09/24 05:35 WBC 12.5 H RBC 5.41 Hgb 15.5 Hct 47.3 MCV 87.4 MCH 28.7 MCHC 32.8 RDW 13.8 Plt Count 365 MPV 10.1 Immature Gran % (Auto) 0.3 Neut % (Auto) 75.4 H Lymph % (Auto) 7.9 L Ward % (Auto) 14.5 H Eos % (Auto) 1.0 Baso % (Auto) 0.9 Lymph # (Auto) 0.99 Ward # (Auto) 1.8 H Eos # (Auto) 0.1 Baso # (Auto) 0.1 Abs Immat Gran (auto) 0.04 H Absolute Neuts (auto) 9.5 H Absolute Nucleated RBC 0.000 Nucleated RBC % 0.0 Sodium 135 L Potassium 3.8 Chloride 102 Carbon Dioxide 22 Anion Gap 11 BUN 21 H Creatinine 1.04 Estim Creat Clear Calc 104 Estimated GFR > 60 Glucose 178 H POC Capillary Glucose Lactic Acid Calcium 8.7 Quality VTE Prophylaxis VTE prophylaxis: mechanical ordered and pharmacologic ordered
[2024-11-09 14:00] VITALS: BP 146/92; PULSE 84; RESP 22; TEMP 37; O2SAT 98
--- NOTE | 2024-11-09 15:49 | P.CONGS_ITS ---
Assessment and Plan Assessment and plan (1) Abdominal pain: Qualifiers: Abdominal location: lower abdomen, unspecified Qualified Code(s): R 10.30 - Lower abdominal pain, unspecified Code(s): R10.9 - Unspecified abdominal pain Status: Acute Assessment and Plan: Recurrent episodes of severe abdominal pain in patient with morbid obesity and longstanding history of recurrent episodes of diverticulitis. These episodes have become much more frequent recently with 3 of them since July. Colonoscopy about 3 weeks ago showed diverticuli but no evidence of malignancy or stricture. CT scan suggests distal sigmoid obstruction with colonic distension proximally. I reviewed the CT scan and agree. This could well be from chronic diverticulitis with either a stricture or abrupt angulation causing partial obstruction. I discussed with the patient and his the management that would be needed to occur her should he develop distal colonic obstruction that did not relieve itself. I spoke with Dr. Montgomery who plans to do a sigmoidoscopy on him tomorrow. I also discussed with the patient and his that if there is no stricture and he could have a bowel prep, he could have sigmoidectomy done laparoscopically which would be curative of his diverticulitis. They had many questions and I answered all of them. I will follow along as I am concerned he is going to need colonic diversion due to distal colonic obstruction. (2) Diverticulitis large intestine: Qualifiers: Diverticulitis bleeding: unspecified bleeding status Diverticulitis complication: unspecified complication status Qualified Code(s): K57.32 - Diverticulitis of large intestine without perforation or abscess without bleeding Code(s): K57.32 - Diverticulitis of large intestine without perforation or abscess without bleeding Status: Chronic Assessment and Plan: Has had for years. Please see above. (3) Umbilical hernia: Qualifiers: Obstruction and gangrene presence: with obstruction but without gangrene Qualified Code(s): K42.0 - Umbilical hernia with obstruction, without gangrene Code(s): K42.9 - Umbilical hernia without obstruction or gangrene Status: Chronic Assessment and Plan: Asymptomatic, not playing a role in his present illness. Review of his CT scan shows a 4 x 3 cm defect with properitoneal fat chronically herniated. This can be repaired electively and is not a source of his abdominal pain. (4) BMI 40.0-44.9, adult: Code(s): Z68.41 - Body mass index [BMI] 40.0-44.9, adult Status: Chronic Assessment and Plan: Taking G LP 1 agonist (5) Hypogonadism in male: Code(s): E29.1 - Testicular hypofunction Status: Chronic Assessment and Plan: Taking testosterone supplement History of Present Illness Consult details Consult date: 11/09/24 Reason for consult: abdominal pain (And umbilical hernia) Requesting physician: Rosalia Gentile APRN Narrative: The patient is a 49-year-old man who I am asked to see regarding abdominal pain and a longstanding umbilical hernia. The umbilical hernia was 1st noted just a few weeks ago and Dr. Montgomery saw the patient and pointed out to him. Patient thinks it has been there a long time but is unsure. He denies that it causes am any discomfort. The patient is a 49-year-old man with a longstanding history of diverticulitis. He has had it for years. He tries to avoid foods such as popcorn that can trigger episodes of diverticulitis. He tells me that for many years he would have 1 or maybe 2 episodes of diverticulitis that would be treated with antibiotics as an outpatient. One other episode in the past he did go to the emergency room but was not admitted. On 07/28/2024, he experienced severe lower abdominal pain and came to [facility] emergency room. Evaluation there included a CT scan which showed acute on chronic sigmoid diverticulitis with no evidence of abscess or free air. It was treated with antibiotics and improved. He then had an EGD and colonoscopy by Dr. Montgomery on 10/17/2024. The EGD was entirely negative. The colonoscopy showed a few sigmoid diverticuli as well as a 3 mm ascending colon polyp. This polyp was removed and pathology showed a tubular adenoma. There was no evidence of sigmoid stricture, severe narrowing, and no evidence of a malignancy. Unfortunately, the patient developed severe pain across the mid abdomen again about 2 weeks ago. The pain was severe at 1st but became more tolerable and was associated with multiple episodes of diarrhea. This resolved but then yesterday, he was awakened from sleep with even more severe pain across the abdomen. After an hour or so, the pain was persistent, he decided to go to the emergency room. He continued to have pain in the emergency room but was afebrile and had a normal white blood cell count. Exam only showed slight tenderness. Patient related to the ER physician that he felt the previous episode of this pain, two weeks ago,may have been brought on by taking his tirzepatide and testosterone injections at the same time. CT scan was again obtained yesterday, and patient was noted to have some gaseous distension of his entire colon and concern for a stricture or narrowing in the distal sigmoid colon. Patient received pain medication in the emergency room. Through the night, his pain improved. He had couple of bowel movements this morning and is having no pain right now. I reviewed his CT scan from yesterday myself. It does appear to have impending distal colonic obstruction with dilated colon and a point of transition or stricture in the sigmoid area with some inflammatory changes. He is seen now in consultation regarding his umbilical hernia and his abdominal pain. Patient has medical illnesses including morbid obesity, obstructive sleep apnea, and [id number] diabetes. He has had no previous abdominal surgery. Review of Systems 2 Review of Systems: All systems reviewed & are unremarkable except as noted in HPI and below (HPI) [facility] Past Medical History Medical History Type 2 diabetes mellitus without complications HERON (obstructive sleep apnea) Decreased libido BMI 40.0-44.9, adult Acute bronchitis due to other specified organisms Acute pain of left foot Acute pain of right shoulder Acute sinusitis, unspecified Chronic fatigue Dietary counseling and surveillance (05/08/18) Diverticulitis Diverticulitis of large intestine without perforation or abscess Elevated glucose Infection of right eye Left lower quadrant pain Low serum testosterone Lung nodule Right hip pain Screening for lipid disorders Screening for prostate cancer Vitamin D deficiency Constipation Obese Adenomatous colon polyp Diverticulitis large intestine Surgical History Surgical History Hx of colonoscopy Family History Family History Mother Hypertension Father Heart disease Sibling No problems noted. Other Cerebrovascular accident Family history of coronary artery disease Social History Social History Smoking status: Never smoker Second hand tobacco smoke exposure: Yes Alcohol intake: current Drinks per week: 24 Alcohol use details: beer Substance use: never Substance use type: does not use Do You Feel Safe in your Home?: Yes Lack of Transportation: No Lack of Food: Never True Current Housing: I Have Housing Concerned About Future Housing: No Difficulty Paying Gas/Electric Bills: No Difficulty Paying for Meds: No Currently Unemployed: No Education: High School Diploma/GED Difficulty w/ Childcare or Family Care: No Living arrangements: with family Occupation/Education: occupation 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 Gender identity (if verbalized by the patient): Male Spiritual care concerns: No Meds Home Medications and Allergies Home Medications ?Medication ?Instructions ?Recorded ?Confirmed ?Type esomeprazole magnesium 40 mg 40 mg PO DAILY #30 caps 1 11/08/24 Rx capsule,delayed release (Nexium) blood sugar diagnostic ([employer] #100 ea 08/30/2310/21 Rx Verio test strips) lancets 30 gauge ([employer] Delica #100 ea 01/02/24 Rx Plus Lancet) cholecalciferol (vitamin D3) 1,250 1,250 mcg PO WEEKLY 05/02/24 11/08/24 History mcg (50,000 unit) capsule acetaminophen 500 mg tablet 1,000 mg (2 x 500 mg) PO T ID PRN 07/28/24 11/08/24 Rx carissa 7 days #42 tabs ibuprofen 800 mg tablet 800 mg PO TID PRN pain 7 day s #21 07/28/24 11/08/24 Rx tabs ondansetron 4 mg disintegrating 4 mg PO Q8H PRN nausea and 07/28/24 11/08/24 Rx tablet vomiting #30 tabs testosterone cypionate 200 mg/mL 200 mg subcut [id number] 10/01/24 11/08/24 History intramuscular oil tirzepatide 10 mg/0.5 mL 15 mg subcut WEEKLY 10/01/24 11/08/24 History subcutaneous pen injector Allergies Allergy/AdvReac Type Severity Reaction Status Date / Time No Known Allergies Allergy Verified 11/08/24 14:26 Vital Signs Vital Signs - 24 hr 11/08/24 20:00 11/08/24 20:44 11/08/24 22:30 Temperature Pulse Rate 112 H 117 H Respiratory Rate 18 20 Blood Pressure Pulse Oximetry 97 93 95 Oxygen Delivery Room Air Room Air Autopap Fraction of Inspired Oxygen 21 11/08/24 22:41 11/09/24 03:18 11/09/24 05:48 Temperature 36.6 C 36.6 C Pulse Rate 112 H 108 H Respiratory Rate 18 18 Blood Pressure 143/85 H 135/86 Pulse Oximetry 97 96 98 Oxygen Delivery Autopap Fraction of Inspired Oxygen 11/09/24 08:00 Temperature Pulse Rate Respiratory Rate Blood Pressure Pulse Oximetry Oxygen Delivery Room Air Fraction of Inspired Oxygen Exam 2 Const: General: cooperative, comfortable, no acute distress, alert and awake Nutritional Appearance: well nourished and obese Orientation/consciousness: patient oriented x3 HENMT: Head: normocephalic and atraumatic Mouth: Yes Normal oral and palatal mucosa present Eyes: Conjunctivae: conjunctivae normal Pupils: Equal, round and reactive pupils present EOM: EOMs intact bilaterally Neck: Neck: normal visual inspection, no lymphadenopathy and nontender Resp: Effort & Inspection: normal respiratory effort Auscultation: clear to auscultation bilaterally Cardio: Rate: regular rate Rhythm: regular rhythm Heart sounds: no gallops, no murmurs and no rubs GI: Inspection: non-distended, obesity, no scars and visible herniation (Umbilical) GI Palp: Yes Soft to palpation, No Tenderness to palpation present (GI), No Guarding due to palpation present (GI), No Hepatomegaly present, No Splenomegaly present and Yes Hernia present umbilical 3-10 cm (Tender but reducible) Skin: Lesions: no lesions Rashes: no rashes Neuro: General: no focal motor deficits and CN's II-XI intact bilaterally C ranial nerves: Yes Equal, round and reactive pupils present, Yes Bilaterally intact EOM present, Yes facial symmetry and Yes Midline tongue present S peech: normal speech Motor exam (neuro): 5/5 motor strength present throughout and Motor abnormalities not present Extrem: General: no clubbing, cyanosis or edema and edema Psych: Affect: normal affect Thought process: Normal thought process present Insight: Good insight present (Psych) Results Labs 11/09/24 05:35 11/09/24 05:35 Labs: Abnormal lab results 11/08/24 11/08/24 11/09/24 Range/Units 17:16 20:06 05:35 WBC 12.5 H (4.5-10.0) K/mm3 Neut % (Auto) 75.4 H (45.5-73.1) % Lymph % (Auto) 7.9 L (18.3-44.2) % Isabela % (Auto) 14.5 H (2.6-8.5) % Isabela # (Auto) 1.8 H (0.1-0.6) K/mm3 Abs Immat Gran (auto) 0.04 H (0.00-0.031) K/mm3 Absolute Neuts (auto) 9.5 H (1.3-6.7) K/mm3 Sodium 135 L (137-145) mmol/L BUN 21 H (9-20) mg/dL Glucose 178 H (65-110) mg/dL POC Capillary Glucose 148 H 170 H (65-105) mg/dl 11/09/24 11/09/24 Range/Units 08:30 12:16 WBC (4.5-10.0) K/mm3 Neut % (Auto) (45.5-73.1) % Lymph % (Auto) (18.3-44.2) % Isabela % (Auto) (2.6-8.5) % Isabela # (Auto) (0.1-0.6) K/mm3 Abs Immat Gran (auto) (0.00-0.031) K/mm3 Absolute Neuts (auto) (1.3-6.7) K/mm3 Sodium (137-145) mmol/L BUN (9-20) mg/dL Glucose (65-110) mg/dL POC Capillary Glucose 169 H 153 H (65-105) mg/dl Diabetes panel 11/09/24 Range/Units 05:35 Sodium 135 L (137-145) mmol/L Potassium 3.8 (3.4-5.0) mmol/L Chloride 102 (98-107) mmol/L Carbon Dioxide 22 (22-30) mmol/L BUN 21 H (9-20) mg/dL Creatinine 1.04 (0.7-1.3) mg/dL Glucose 178 H (65-110) mg/dL Calcium 8.7 (8.4-10.2) mg/dL Calcium panel 11/09/24 Range/Units 05:35 Calcium 8.7 (8.4-10.2) mg/dL Pituitary panel 11/09/24 Range/Units 05:35 Sodium 135 L (137-145) mmol/L Potassium 3.8 (3.4-5.0) mmol/L Chloride 102 (98-107) mmol/L Carbon Dioxide 22 (22-30) mmol/L BUN 21 H (9-20) mg/dL Creatinine 1.04 (0.7-1.3) mg/dL Glucose 178 H (65-110) mg/dL Calcium 8.7 (8.4-10.2) mg/dL Adrenal panel 11/09/24 Range/Units 05:35 Sodium 135 L (137-145) mmol/L Potassium 3.8 (3.4-5.0) mmol/L Chloride 102 (98-107) mmol/L Carbon Dioxide 22 (22-30) mmol/L BUN 21 H (9-20) mg/dL Creatinine 1.04 (0.7-1.3) mg/dL Glucose 178 H (65-110) mg/dL Calcium 8.7 (8.4-10.2) mg/dL All other labs normal. Imaging Abdomen CT scan report/results: report reviewed (Colon: Persistent circumferential wall thickening and luminal narrowing proximal sigmoid. Normal RLQ appendix. Mild gaseous distention. IMPRESSION: 1. Again highly worrisome for sigmoid colon malignancy. Recommend colonoscopy. 2. Large periumbilical hernia with fat. Minimal panniculitis at hernia ) and image reviewed (4 x 3 cm defect umbilical hernia, colonic distension with inflammatory process distal sigmoid) CT scan - pelvis: report reviewed and image reviewed
--- NOTE | 2024-11-09 15:49 | WPDGICN ---
Assessment and Plan Assessment and plan (1) Abnormal CT of the abdomen: Code(s): R93.5 - Abnormal findings on diagnostic imaging of other abdominal regions, including retroperitoneum Status: Acute Assessment and Plan: wonder if symptom is triggered by use of GLP-1, had recent colonoscopy but again CT showed abnormal finding in sigmoid he had diverticulitis previously pain almost gone now I propose to them to do sigmoidoscopy tomorrow to check site again, this has been going on intermittently for sometime surgery also will evaluate patient because umbilical hernia (2) Abdominal pain: Code(s): R10.9 - Unspecified abdominal pain Status: Acute (3) Hx of diverticulitis of colon: Code(s): Z87.19 - Personal history of other diseases of the digestive system Status: Acute (4) Bloody stools: Code(s): K92.1 - Melena Status: Acute (5) Type 2 diabetes mellitus without complications: Qualifiers: Diabetes mellitus half-way insulin use: without half-way use Qualified Code(s): E11.9 - Type 2 diabetes mellitus without complications Code(s): E11.9 - Type 2 diabetes mellitus without complications Status: Acute GI Consult Note Consult date/time: 11/09/24 15:49 Reason for consult: abdominal pain, abnormal CT scan of sigmoid HPI: Braden Cagle is a 49 year old male with h/o burping taking ppi, also had intermittent abdominal pain that triggered CT scan- showed inflammation in sigmoid for which he underwent EGD and colonoscopy last month, had diverticulosis and small colon polyp removed, egd normal- bx no gastritis, no h pylori. He also has diabetes taking Mounjaro, previous diverticulitis, low testosterone on testosterone shot admitted to the hospital with acute abdominal pain that started about 3 days ago and has some blood in his stool, also had loose stool with cramping started Sunday until Sunday. Then abd pain became severe and woke him up from sleep had nausea so he presented to the hospital. He had similar pain with loose stool about 2 weeks ago but did not come to hospital that time. He is here with and they noticed that day prior to symptoms he used his mounjaro but has been on it for over a year (indication is DM). Lab work shows hemoglobin of 15.4, wbc 12, BMP within normal limits, glucose 152, AST 60 a ALT 79, alkaline phos 130, UA is cloudy with 6-10 wbc's negative for leukocyte esterase negative for nitrates. CT abdomen pelvis show Again highly worrisome for sigmoid colon malignancy, and Large periumbilical hernia with fat. Review of Systems Constitutional: Constitutional: Denies chills Eyes: Eyes: Denies blurry vision ENT: Reports Normal hearing present Cardiovascular: Cardiovascular: Denies chest pain Respiratory: Respiratory: Denies cough Gastrointestinal: Gastrointestinal: Reports abdominal pain and Reports nausea Genitourinary: Genitourinary: Denies hematuria Musculoskeletal: Musculoskeletal: Denies neck pain Integumentary/Breasts: Skin/Breast: Denies rash Neurologic: Denies confusion Psychiatric: Psychiatric: Denies behavioral changes REPLACED BY [facility] Past Medical History Medical History Type 2 diabetes mellitus without complications HERON (obstructive sleep apnea) Decreased libido BMI 40.0-44.9, adult Acute bronchitis due to other specified organisms Acute pain of left foot Acute pain of right shoulder Acute sinusitis, unspecified Chronic fatigue Dietary counseling and surveillance (05/08/18) Diverticulitis Diverticulitis of large intestine without perforation or abscess Elevated glucose Infection of right eye Left lower quadrant pain Low serum testosterone Lung nodule Right hip pain Screening for lipid disorders Screening for prostate cancer Vitamin D deficiency Constipation Obese Adenomatous colon polyp Diverticulitis large intestine Surgical History Surgical History Hx of colonoscopy Family History Family History Mother Hypertension Father Heart disease Sibling No problems noted. Other Cerebrovascular accident Family history of coronary artery disease Social History Social History Smoking status: Never smoker Second hand tobacco smoke exposure: Yes Alcohol intake: current Drinks per week: 24 Alcohol use details: beer Substance use: never Substance use type: does not use Do You Feel Safe in your Home?: Yes Lack of Transportation: No Lack of Food: Never True Current Housing: I Have Housing Concerned About Future Housing: No Difficulty Paying Gas/Electric Bills: No Difficulty Paying for Meds: No Currently Unemployed: No Education: High School Diploma/GED Difficulty w/ Childcare or Family Care: No Living arrangements: with family Occupation/Education: occupation 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 Gender identity (if verbalized by the patient): Male Spiritual care concerns: No Meds Home Medications and Allergies Home Medications ?Medication ?Instructions ?Recorded ?Confirmed ?Type esomeprazole magnesium 40 mg 40 mg PO DAILY #30 caps 12/12/21 11/08/24 Rx capsule,delayed release (Nexium) blood sugar diagnostic ([employer] #100 ea 08/30/23 11/08/24 Rx Verio test strips) lancets 30 gauge ([employer]ica #100 ea 01/02/24 11/08/24 Rx Plus Lancet) cholecalciferol (vitamin D3) 1,250 1,250 mcg PO WEEKLY 05/02/24 11/08/24 History mcg (50,000 unit) capsule acetaminophen 500 mg tablet 1,000 mg (2 x 500 mg) PO TID PRN 07/28/24 11/08/24 Rx carissa 7 days #42 tabs ibuprofen 800 mg tablet 800 mg PO TID PRN pain 7 days #21 07/28/24 11/08/24 Rx tabs ondansetron 4 mg disintegrating 4 mg PO Q8H PRN nausea and 07/28/24 11/08/24 Rx tablet vomiting #30 tabs testosterone cypionate 200 mg/mL 200 mg subcut [id number] 10/01/24 11/08/24 History intramuscular oil tirzepatide 10 mg/0.5 mL 15 mg subcut WEEKLY 10/01/24 11/08/24 History subcutaneous pen injector Allergies Allergy/AdvReac Type Severity Reaction Status Date / Time No Known Allergies Allergy Verified 11/08/24 14:26 Vital Signs Vital Signs - 24 hr 11/08/24 20:00 11/08/24 20:44 11/08/24 22:30 Temperature Pulse Rate 112 H 117 H Respiratory Rate 18 20 Blood Pressure Pulse Oximetry 97 93 95 Oxygen Delivery Room Air Room Air [employer]opap Fraction of Inspired Oxygen 21 11/08/24 22:41 11/09/24 03:18 11/09/24 05:48 Temperature 97.9 F 97.9 F Pulse Rate 112 H 108 H Respiratory Rate 18 18 Blood Pressure 143/85 H 135/86 Pulse Oximetry 97 96 98 Oxygen Delivery Autopap Fraction of Inspired Oxygen 11/09/24 08:00 Temperature Pulse Rate Respiratory Rate Blood Pressure Pulse Oximetry Oxygen Delivery Room Air Fraction of Inspired Oxygen Exam Const: General: comfortable and no acute distress HENMT: Face/Nose/Sinus: Normal nares present Eyes: General: appearance normal, both eyes and all related structures Neck: Neck: no JVD Resp: Auscultation: clear to auscultation bilaterally Cardio: Rate: regular rate Rhythm: regular rhythm GI: Inspection: non-distended GI Palp: Yes Soft to palpation, No Guarding due to palpation present (GI) and Yes Hernia present umbilical Auscultation: normal bowel sounds Skin: General skin exam: normal color Neuro: Speech: normal speech Motor exam (neuro): 5/5 motor strength present throughout Extrem: General: normal to inspection Psych: Mental Status: mental status grossly normal Results Labs 11/09/24 05:35 11/09/24 05:35 Labs: Short CBC 11/09/24 Range/Units 05:35 WBC 12.5 H (4.5-10.0) K/mm3 Hgb 15.5 (14.0-18.0) g/dL Hct 47.3 (42.0-52.0) % Plt Count 365 (150-375) k/mm3 BMP 11/09/24 05:35 Sodium 135 L Potassium 3.8 Chloride 102 Carbon Dioxide 22 BUN 21 H Creatinine 1.04 Glucose 178 H Calcium 8.7
[2024-11-09 20:10] VITALS: BP 128/80; PULSE 104; RESP 20; TEMP 36.2; O2SAT 98
[2024-11-09] MEDS: ONDANSETRON INJ 4 MG/2 ML VIAL IV PUSH (21:42)
[2024-11-10] VITALS (9 sets, daily range): BP systolic 117–132; BP diastolic 73–88; PULSE 92–109; RESP 14–21; TEMP 35.9–37.1; O2SAT 96–100
[2024-11-10] MEDS: KETOROLAC 15 MG/ML VIAL (*BKC) IV PUSH (05:14)
[2024-11-10] MEDS: LACTATED RINGERS 1,000 ML 125 ML IV CONT (07:41)
--- NOTE | 2024-11-10 09:20 | P.PNIM_ITS ---
Progress Note: A&P Assessment and Plan (1) Abdominal pain: Qualifiers: Abdominal location: lower abdomen, unspecified Qualified Code(s): R10.30 - Lower abdominal pain, unspecified Code(s): R10.9 - Unspecified abdominal pain Status: Acute Assessment and Plan: * CT Abd/Pelvis: * Again highly worrisome for sigmoid colon malignancy. Recommend colonoscopy. * Large periumbilical hernia with fat. Minimal panniculitis at hernia neck. * Otherwise no acute abnormality. * Persistent circumferential wall thickening and luminal narrowing proximal sigmoid. Normal RLQ appendix. Mild gaseous distention. * Denies pain in hernia * Toradol and Tylenol for pain control preferred over narcotics * NPO * GI consulted-sigmoidoscopy today (2) Diverticulitis large intestine: Qualifiers: Diverticulitis bleeding: unspecified bleeding status Diverticulitis complication: unspecified complication status Qualified Code(s): K57.32 - Diverticulitis of large intestine without perforation or abscess without bleeding Code(s): K57.32 - Diverticulitis of large intestine without perforation or abscess wit hout bleeding Status: Chronic Assessment and Plan: * No signs of infection at this time * GI consulted, appreciate recommendations (3) Umbilical hernia: Qualifiers: Obstruction and gangrene presence: with obstruction but without gangrene Qualified Code(s): K42.0 - Umbilical hernia with obstruction, without gangrene Code(s): K42.9 - Umbilical hernia without obstruction or gangrene Status: Chronic Assessment and Plan: * Large periumbilical hernia with fat. Minimal panniculitis at hernia neck. * Hernia is soft, easily reducible, no pain on palpation and non erythremic * Surgery consulted, appreciate recommendations (4) Type 2 diabetes mellitus without complications: Qualifiers: Diabetes mellitus shelter insulin use: without shelter use Qualified Code(s): E11.9 - Type 2 diabetes mellitus without complications Code(s): E11.9 - Type 2 diabetes mellitus without complications Status: Acute Assessment and Plan: Blood sugars overall controlled * Patient takes Tresiba Mondays * Accu-Cheks a.c. HS * SSI * Hypoglycemia protocol (5) Bloody stools: Code(s): K92.1 - Melena Status: Acute Assessment and Plan: * Likely from internal hemorrhoids, hemoglobin within normal limits * No report of black or bloody stools overnight (6) Hiccups: Code(s): R06.6 - Hiccough Status: Acute Assessment and Plan: * Scheduled Reglan for 24 hours, now discontinued. Resolved Time Spent With Patient Time: 56 minutes Subjective Date/time seen: 11/10/24 09:20 Interval history: Overnight events Bowel prep overnight, reports stools tea colored this morning. Reports mild upper abdominal discomfort. Nausea and dry heaves overnight. Feeling better after zofran Reason for hospitalization 49-year-old male past medical history of diabetes, diverticulitis, low testosterone, presents the hospital with acute abdominal pain. CT abd/pelvis 11/08 concerning for sigmoid colon malignancy. GI and surgery consulted. GI planning sigmoidoscopy today. Surgery following in case of distal colonic obstruction Review of Systems Review of Systems: 12 systems were reviewed and are negativ e except for as per HPI. Exam Narrative: General: well appearing, appears stated age. HEENT: normocephalic, atraumatic. Mucous membranes moist. EOMI, PERRLA, bilateral sclera anicteric, no conjunctival injection. Neck supple without JVD, lymphadenopathy, or bruit. Respiratory: clear to auscultation bilaterally. No rales/rhonchi/wheezes. Cardiovascular: Regular rate and rhythm, normal S1-S2 upon auscultation. No murmurs, rubs, or clicks. Abdomen: Upper abdominal discomfort. Soft, round, no pulsatile masses. No rebound, no guarding. No CVA tenderness, no hepatosplenomegaly. Bowel sounds present to all four quadrants. No high pitch or tinkling sounds, resonant to percussion. Extremities: No cyanosis, clubbing, or edema present. Pulses are palpable 2/2. Active ROM to all four extremities. Neuro: Alert and orientated x 4. PERRLA. Cranial nerves 2-12 intact without focal deficit. Skin: Warm, dry, and intact, without rash, erythema, or lesion. Psych: pleasant, cooperative, normal speech, normal affect, no hallucinations, no dysarthia Objective Data Vital Signs Vital Signs: Vital Signs - 24 hr 11/09/24 14:00 11/09/24 20:00 11/09/24 20:10 Temperature 98.6 F 97.2 F L Pulse Rate 84 104 H Respiratory Rate 22 H 20 Blood Pressure 146/92 H 128/80 Pulse Oximetry 98 98 Oxygen Delivery CPAP 11/10/24 02:11 11/10/24 05:24 Temperature 97.8 F Pulse Rate 109 H Respiratory Rate 14 Blood Pressure 132/84 Pulse Oximetry 98 96 Oxygen Delivery Autopap Intake/Output Intake/Output: Intake & Output 11/07/24 11/08/24 11/09/24 11/10/24 23:59 23:59 23:59 23:59 Intake Total 2029 3620.8 2168.8 Output Total 6 Balance 2029 3620.8 2162.8 Meds/Results Medications: Active Medications Generic Name Dose Route Start Last Admin Trade Name Freq PRN Reason Stop Dose Admin Acetaminophen 650 mg 11/08/24 21:00 11/10/24 02:05 Acetaminophen 325 Mg Tablet PO Not Given Q6H BRENDEN Al Hydrox/Mg Hydrox/Simethicone 30 ml 11/08/24 16:26 Mag Hydrox/Al Hydrox/Simeth 30 Ml Udc PO QID PRN Dyspepsia Dextrose 12.5 gm 11/08/24 16:26 Dextrose 50% 25 Gm/50 Ml Syringe IV PUSH PRN PRN Hypoglycemia Protocol Glucagon 1 mg 11/08/24 16:26 Glucagon For Inj 1 Mg Vial IM PRN PRN Hypoglycemia Protocol Glucose 15 gm 11/08/24 16:26 Glucose Oral Gel 15 Gm Of Glucse In 37.5 Gm Tube PO PRN PRN Hypoglycemia Protocol Hydromorphone HCl 0.5 mg 11/08/24 12:57 11/08/24 20:21 Hydromorphone Hcl Inj (*Crx) 1 Mg/Ml Syr IV PUSH 0.5 mg Q4H PRN Administration Pain Rated 7-10 Lactated Ringer's 1,000 mls @ 125 mls/hr 11/08/24 13:00 11/10/24 07:41 Lr - Lactated Ringers Iv IV CONT 125 mls/hr .Q8H BRENDEN Administration Dextrose 1,000 mls @ 100 mls/hr 11/08/24 16:26 Dextrose 5% 1,000 Ml IVPB PRN PRN Hypoglycemia Protocol Insulin Aspart 2 - 5 units 11/08/24 17:00 11/09/24 17:43 Insulin Aspart (*Bkc) 100 Units/Ml SUB-Q Not Given TIDWM BRENDEN Protocol Ketorolac Tromethamine 15 mg 11/08/24 17:00 11/10/24 05:14 Ketorolac 15 Mg/Ml Vial (*Bkc) IV PUSH 15 mg Q6HR BRENDEN Administration Ondansetron HCl 4 mg 11/08/24 12:57 11/09/24 21:42 Ondansetron Inj 4 Mg/2 Ml Vial IV PUSH 4 mg Q4H PRN Administration Nausea Pantoprazole Sodium 40 mg 11/09/24 09:00 11/09/24 08:41 Pantoprazole 40 Mg Tablet PO Not Given QAM [facility] Radiology Results: ITS Impressions Abdomen/Pelvis CT 11/08/24 07:28 IMPRESSION: 1. Again highly worrisome for sigmoid colon malignancy. Recommend colonoscopy. 2. Large periumbilical hernia with fat. Minimal panniculitis at hernia neck. 3. Otherwise no acute abnormality. Labs Labs: Laboratory Results - last 24 hr 11/09/24 11/09/24 11/09/24 12:16 17:36 19:55 POC Capillary Glucose 153 H 151 H 242 H 11/10/24 08:26 POC Capillary Glucose 146 H Quality VTE Prophylaxis VTE prophylaxis: mechanical ordered and pharmacologic ordered (Lovenox on hold for bleeding and scope today, resume tomorrow) Hospitalist MIPS Advance Care Plan I have confirmed that the patient's Advanced Care Plan is present, code status is documented, or surrogate decision maker is listed in patient medical record.: Yes Medication Reconciliation I have utilized all available resources to obtain, update and review the patients current medications (includes all prescriptions, OTC, herbals, cannabis, and nutritional supplements).: Yes
--- NOTE | 2024-11-10 12:55 | PC.NURSE ---
Patient off of unit to GI lab
[2024-11-10] MEDS: LACTATED RINGERS 1,000 ML 150 ML IV CONT (13:17)
--- NOTE | 2024-11-10 13:47 | WPDANESEPPF ---
Anes - Initial Pre Proc Eval Procedure: Operation Date: 11/10/24 15:00 Proposed Procedures p Flexible Sigmoidoscopy - Charlie Argueta MD Date/Time: 11/10/24 13:47 Surgeon: Mike Cortes MD Pre Op Diagnosis: abdominal pain Patient Data Age: 49 Gender: M Height: 1.83 m Weight: 130.5 kg Last Vital Signs Temp 97.6 F 11/10/24 13:14 Pulse 103 H 11/10/24 13:14 Resp 18 11/10/24 13:14 BP 131/84 11/10/24 13:14 Pulse Ox 100 11/10/24 13:14 O2 Del Method Room Air 11/10/24 13:14 FiO2 21 11/08/24 20:44 Allergies Allergy/AdvReac Type Severity Reaction Status Date / Time No Known Allergies Allergy Verified 11/10/24 13:12 Home Medications ?Medication ?Instructions ?Recorded ?Confirmed ?Type esomeprazole magnesium 40 mg 40 mg PO DAILY #30 caps 12/12/21 11/08/24 Rx capsule,delayed release (Nexium) blood sugar diagnostic (OneTouch #100 ea 08/30/23 11/08/24 Rx Verio test strips) lancets 30 gauge (OneTouch Delica #100 ea 01/02/24 11/08/24 Rx Plus Lancet) cholecalciferol (vitamin D3) 1,250 1,250 mcg PO WEEKLY 05/02/24 11/08/24 History mcg (50,000 unit) capsule acetaminophen 500 mg tablet 1,000 mg (2 x 500 mg) PO TID PRN 07/28/24 11/08/24 Rx carissa 7 days #42 tabs ibuprofen 800 mg tablet 800 mg PO TID PRN pain 7 days #21 07/28/24 11/08/24 Rx tabs ondansetron 4 mg disintegrating 4 mg PO Q8H PRN nausea and 07/28/24 11/08/24 Rx tablet vomiting #30 tabs testosterone cypionate 200 mg/mL 200 mg subcut [id number] 10/01/24 11/08/24 History intramuscular oil tirzepatide 10 mg/0.5 mL 15 mg subcut WEEKLY 10/01/24 11/08/24 History subcutaneous pen injector Laboratory Tests 11/09/24 11/09/24 11/10/24 17:36 19:55 08:26 POC Capillary Glucose 151 H mg/dl 242 H mg/dl 146 H mg/dl (65-105) (65-105) (65-105) 11/10/24 11/10/24 12:05 13:09 POC Capillary Glucose 123 H mg/dl 129 H mg/dl (65-105) (65-105) Patient hx anesthesia problems: none Family hx anesthesia problems: none Results Review: All pre-operative results and documents have been reviewed as part of the pre-operative evaluation. [facility] Past Medical History Medical History Type 2 diabetes mellitus without complications HERON (obstructive sleep apnea) Decreased libido BMI 40.0-44.9, adult Acute bronchitis due to other specified organisms Acute pain of left foot Acute pain of right shoulder Acute sinusitis, unspecified Chronic fatigue Dietary counseling and surveillance (05/08/18) Diverticulitis Diverticulitis of large intestine without perforation or abscess Elevated glucose Infection of right eye Left lower quadrant pain Low serum testosterone Lung nodule Right hip pain Screening for lipid disorders Screening for prostate cancer Vitamin D deficiency Constipation Obese Adenomatous colon polyp Diverticulitis large intestine Surgical History Surgical History Hx of colonoscopy Family History Family History Mother Hypertension Father Heart disease Sibling No problems noted. Other Cerebrovascular accident Family history of coronary artery disease Social History Social History Smoking status: Never smoker Second hand tobacco smoke exposure: Yes Alcohol intake: current Drinks per week: 24 Alcohol use details: beer Substance use: never Substance use type: does not use Do You Feel Safe in your Home?: Yes Lack of Transportation: No Lack of Food: Never True Current Housing: I Have Housing Concerned About Future Housing: No Difficulty Paying Gas/Electric Bills: No Difficulty Paying for Meds: No Currently Unemployed: No Education: High School Diploma/GED Difficulty w/ Childcare or Family Care: No Living arrangements: with family Occupation/Education: occupation 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 Hx reviewed, pt w HERON on CPAP, DM fsbs reviewed, pt for flex sig after recent colonoscopy and repeat abnormal CT. Informed Consent: The patient's anesthetic plan and its attendant risks and benefits were discussed with the patient/family/POA. Questions were solicited and answers provided to the satisfaction of the patient/family/POA.
--- NOTE | 2024-11-10 14:00 | S_PTH ---
PATIENT: Braden Cagle LOC: [id number] U#:[id number] AGE/SX: 49/M ROOM: 347 RE11/11/[address]: Blanca Pennington APRN : 1975 BED: 01 DIS: 11/14/2024 SPEC #: [id number] RECD: 11/10/24 14:28 STATUS: PRACHI REQ #: [id number] TANMAY: 11/10/24 14:[address]: Charlie Argueta DEPT: [facility] Surgical RECD BY: Maggie Cline ENTERED: 11/10/24 14:28 SP TYPE: Surgical OTHR DR: BANDAR Llanos MD Dean F. Schueler, MD Amardeep Shrestha, MD Evelyne Thomas, APRN Tissues: A - Colon Biopsy Procedures: Hematoxylin and Eosin Stain Gross and Microscopic Level 4
[2024-11-10] MEDS: ACETAMINOPHEN 325 MG TABLET 650 MG PO (19:59)
[2024-11-11] MEDS: KETOROLAC 15 MG/ML VIAL (*BKC) IV PUSH ×5 (00:49→23:00)
[2024-11-11 06:00] VITALS: BP 127/80; PULSE 89; RESP 16; TEMP 36.6; O2SAT 91
[2024-11-11 07:26] LABS: Hematocrit 40.8 % (42.0-52.0); Hemoglobin 13.1 g/dL (14.0-18.0); Mean Corpuscular HGB Conc 32.1 g/dl (32-36); Mean Corpuscular Hemoglobin 29.0 pg (26-34); Mean Corpuscular Volume 90.5 fl (80-100); Platelet Count Result 293 k/mm3 (150-375); Red Blood Count 4.51 M/mm3 (4.6-6.20); White Blood Count 4.5 K/mm3 (4.5-10.0)
[2024-11-11 07:47] LABS: Anion Gap 7 mmol/L (4-12); Blood Urea Nitrogen 14 mg/dL (9-20); CRP 6.0 mg/dL (<1.0); Calcium 8.6 mg/dL (8.4-10.2); Carbon Dioxide 26 mmol/L (22-30); Chloride 104 mmol/L (98-107); Estimated CRCL calculation 112 ml/min; Estimated Glomerular Filt Rate > 60; Glucose 128 mg/dL (65-110); Potassium 3.5 mmol/L (3.4-5.0); Sodium 137 mmol/L (137-145)
[2024-11-11] MEDS: PANTOPRAZOLE 40 MG TABLET PO (08:54)
[2024-11-11] MEDS: ENOXAPARIN 40 MG/0.4 ML SYRINGE SUB-Q (08:54)
[2024-11-11] MEDS: ACETAMINOPHEN 325 MG TABLET 650 MG PO ×3 (08:54→22:02)
--- NOTE | 2024-11-11 09:33 | P.PNGS_ITS ---
Progress Note: A&P Assessment and Plan (1) Diverticulitis large intestine: Qualifiers: Diverticulitis bleeding: unspecified bleeding status Diverticulitis complication: unspecified complication status Qualified Code(s): K57.32 - Diverticulitis of large intestine without perforation or abscess without bleeding Code(s): K57.32 - Diverticulitis of large intestine without perforation or abscess without bleeding Status: Chronic Assessment and Plan: Sigmoidoscopy results from yesterday noted. Some edema and erythema in the sigmoid colon appeared to be the source of partial obstruction. I discussed this with Dr. Montgomery. I will go ahead and start the patient on IV Unasyn antibiotics. He is still having crampy pain. If this does not resolve, he may need diverting colostomy before he can go home. I will also start some Metamucil. Hopefully antibiotics will relieved the acute inflammation such that the patient can go home and have sigmoidoscopy scheduled electively after bowel preparation. (2) Umbilical hernia: Qualifiers: Obstruction and gangrene presence: with obstruction but without gangrene Qualified Code(s): K42.0 - Umbilical hernia with obstruction, without gangrene Code(s): K42.9 - Umbilical hernia without obstruction or gangrene Status: Chronic Assessment and Plan: Asymptomatic, reducible (3) BMI 40.0-44.9, adult: Code(s): Z68.41 - Body mass index [BMI] 40.0-44.9, adult Status: Chronic Assessment and Plan: Patient has lost some weight with tirzepatide but still very heavy. This would increased surgical risks. (4) Type 2 diabetes mellitus without complications: Qualifiers: Diabetes mellitus mcc insulin use: without terminal operations manager use Qualified Code(s): E11.9 - Type 2 diabetes mellitus without complications Code(s): E11.9 - Type 2 diabetes mellitus without complications Status: Chronic Subjective Subjective Date/Time Seen: 11/11/24 09:33 Patient reports: still having pain (Still having crampy pain across the mid to upper abdomen), voiding w/o difficulty, bowel movement (Multiple bowel movements), diarrhea (Continues to have some loose stools which has been a problem all along for him) and afebrile Review of Systems Review of Systems: All systems reviewed & are unremarkable except as noted in HPI and below (HPI) Exam Const: General: cooperative, comfortable, alert and awake GI: Inspection: obesity (Protuberant abdomen) and visible herniation (Umbilical) GI Palp: Yes Soft to palpation, No Tenderness to palpation present (GI) and Yes Hernia present umbilical < 3 cm (Reducible) Objective Data Vital Signs Vital Signs: Vital Signs - 24 hr 11/10/24 13:14 11/10/24 14:02 11/10/24 14:12 Temperature 36.4 C Pulse Rate 103 H 101 H 96 Respiratory Rate 18 21 H 20 Blood Pressure 131/84 117/73 130/88 Pulse Oximetry 100 97 98 Oxygen Delivery Room Air Room Air Room Air Fraction of Inspired Oxygen 11/10/24 14:22 11/10/24 15:00 11/10/24 19:56 Temperature 35.9 C L 37.1 C Pulse Rate 94 92 95 Respiratory Rate 18 16 18 Blood Pressure 131/82 123/86 118/76 Pulse Oximetry 99 99 98 Oxygen Delivery Room Air Fraction of Inspired Oxygen 11/10/24 20:55 11/11/24 00:38 11/11/24 06:00 Temperature 36.6 C Pulse Rate 95 89 Respiratory Rate 18 16 Blood Pressure 127/80 Pulse Oximetry 98 91 Oxygen Delivery Room Air Autopap Fraction of Inspired Oxygen 21 11/11/24 08:00 Temperature Pulse Rate Respiratory Rate Blood Pressure Pulse Oximetry Oxygen Delivery Room Air Fraction of Inspired Oxygen Intake/Output Intake/Output: Intake & Output 11/08/24 11/09/24 11/10/24 11/11/24 23:59 23:59 23:59 23:59 Intake Total 2029 3620.8 2508.8 390 Output Total Balance 2029 3620.8 2502.8 390 Meds/Results Medications: Active Medications Generic Name Dose Route Start Last Admin Trade Name Freq PRN Reason Stop Dose Admin Acetaminophen 650 mg 11/08/24 21:00 11/11/24 08:54 Acetaminophen 325 Mg Tablet PO 650 mg Q6H BRENDEN Administration Al Hydrox/Mg Hydrox/Simethicone 30 ml 11/08/24 16:26 Mag Hydrox/Al Hydrox/Simeth 30 Ml Udc PO QID PRN Dyspepsia Dextrose 12.5 gm 11/08/24 16:26 Dextrose 50% 25 Gm/50 Ml Syringe IV PUSH PRN PRN Hypoglycemia Protocol Enoxaparin Sodium 40 mg 11/11/24 09:00 11/11/24 08:54 Enoxaparin 40 Mg/0.4 Ml Syringe SUB-Q 40 mg DAILY BRENDEN Administration Glucagon 1 mg 11/08/24 16:26 Glucagon For Inj 1 Mg Vial IM PRN PRN Hypoglycemia Protocol Glucose 15 gm 11/08/24 16:26 Glucose Oral Gel 15 Gm Of Glucse In 37.5 Gm Tube PO PRN PRN Hypoglycemia Protocol Hydromorphone HCl 0.5 mg 11/08/24 12:57 11/08/24 20:21 Hydromorphone Hcl Inj (*Crx) 1 Mg/Ml Syr IV PUSH 0.5 mg Q4H PRN Administration Pain Rated 7-10 Dextrose 1,000 mls @ 100 mls/hr 11/08/24 16:26 Dextrose 5% 1,000 Ml IVPB PRN PRN Hypoglycemia Protocol Insulin Aspart 2 - 5 units 11/08/24 17:00 11/11/24 08:51 Insulin Aspart (*Bkc) 100 Units/Ml SUB-Q Not Given TIDWM BRENDEN Protocol Ketorolac Tromethamine 15 mg 11/08/24 17:00 11/11/24 06:14 Ketorolac 15 Mg/Ml Vial (*Bkc) IV PUSH 15 mg Q6HR BRENDEN Administration Ondansetron HCl 4 mg 11/08/24 12:57 11/09/24 21:42 Ondansetron Inj 4 Mg/2 Ml Vial IV PUSH 4 mg Q4H PRN Administration Nausea Pantoprazole Sodium 40 mg 11/09/24 09:00 11/11/24 08:54 Pantoprazole 40 Mg Tablet PO 40 mg QAM BRENDEN Administration Radiology Results: ITS Impressions Abdomen/Pelvis CT 11/08/24 07:28 IMPRESSION: 1. Again highly worrisome for sigmoid colon malignancy. Recommend colonoscopy. 2. Large periumbilical hernia with fat. Minimal panniculitis at hernia neck. 3. Otherwise no acute abnormality. Labs Labs: Laboratory Results - last 24 hr 11/10/24 11/10/24 11/10/24 12:05 13:09 17:28 WBC RBC Hgb Hct MCV MCH MCHC RDW Plt Count MPV Sodium Potassium Chloride Carbon Dioxide Anion Gap BUN Creatinine Estim Creat Clear Calc Estimated GFR Glucose POC Capillary Glucose 123 H 129 H 139 H Calcium C-Reactive Protein 11/10/24 11/11/24 11/11/24 19:46 07:20 08:18 WBC 4.5 RBC 4.51 L Hgb 13.1 L Hct 40.8 L MCV 90.5 MCH 29.0 MCHC 32.1 RDW 13.8 Plt Count 293 MPV 10.1 Sodium 137 Potassium 3.5 Chloride 104 Carbon Dioxide 26 Anion Gap 7 BUN 14 D Creatinine 0.96 Estim Creat Clear Calc 112 Estimated GFR > 60 Glucose 128 H POC Capillary Glucose 162 H 124 H Calcium 8.6 C-Reactive Protein 6.0 H
[2024-11-11] MEDS: PSYLLIUM POWDER PACKET 1 PACKET PO (11:59)
--- NOTE | 2024-11-11 13:44 | P.PNIM_ITS ---
Progress Note: A&P Assessment and Plan (1) Abdominal pain: Qualifiers: Abdominal location: lower abdomen, unspecified Qualified Code(s): R10.30 - Lower abdominal pain, unspecified Code(s): R10.9 - Unspecified abdominal pain Status: Acute Assessment and Plan: * CT Abd/Pelvis: * Again highly worrisome for sigmoid colon malignancy. Recommend colonoscopy. * Large periumbilical hernia with fat. Minimal panniculitis at hernia neck. * Otherwise no acute abnormality. * Persistent circumferential wall thickening and luminal narrowing proximal sigmoid. Normal RLQ appendix. Mild gaseous distention. * Denies pain in hernia * Toradol and Tylenol for pain control preferred over narcotics * Tolerating a diet but having some cramping * GI consulted-sigmoidoscopy 11/11 showed diverticulitis and edema (2) Diverticulitis large intestine: Qualifiers: Diverticulitis bleeding: unspecified bleeding status Diverticulitis complication: unspecified complication status Qualified Code(s): K57.32 - Diverticulitis of large intestine without perforation or abscess without bleeding Code(s): K57.32 - Diverticulitis of large intestine without perforation or abscess without bleeding Status: Chronic Assessment and Plan: No fevers or chills * GI consulted, appreciate recommendations * Started empiric unasyn (3) Umbilical hernia: Qualifiers: Obstruction and gangrene presence: with obstruction but without gangrene Qualified Code(s): K42.0 - Umbilical hernia with obstruction, without gangrene Code(s): K42.9 - Umbilical hernia without obstruction or gangrene Status: Chronic Assessment and Plan: * Large periumbilical hernia with fat. Minimal panniculitis at hernia neck. 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 HS * SSI * Hypoglycemia protocol (5) Bloody stools: Code(s): K92.1 - Melena Status: Acute Assessment and Plan: * Likely from internal hemorrhoids, hemoglobin within normal limits * No report of black or bloody stools overnight (6) Hiccups: Code(s): R06.6 - Hiccough Status: Acute Assessment and Plan: * Scheduled Reglan for 24 hours, now discontinued. Resolved Time Spent With Patient Time: 59 minutes Subjective Date/time seen: 11/11/24 13:44 Interval history: Overnight events Sigmoidoscopy yesterday showed multiple diverticula in the sigmoid colon with localized edema causing narrowing in the sigmoid lumen. Resumed diet. Surgery following, started Unasyn Feels upper abdominal bloating after eating, intermittent cramping. Still having loose stools post scope Adding bentyl Reason for hospitalization 49-year-old male past medical history of diabetes, diverticulitis, low testosterone, presents the hospital with acute abdominal pain. CT abd/pelvis 11/08 concerning for sigmoid colon malignancy. GI and surgery consulted. GI planning sigmoidoscopy today. Surgery following in case of distal colonic obstruction Review of Systems Review of Systems: 12 systems were reviewed and are negativ e except for as per HPI. Exam Narrative: General: well appearing, appears stated age. HEENT: normocephalic, atraumatic. Mucous membranes moist. EOMI, PERRLA, bilateral sclera anicteric, no conjunctival injection. Neck supple without JVD, lymphadenopathy, or bruit. Respiratory: clear to auscultation bilaterally. No rales/rhonchi/wheezes. Cardiovascular: Regular rate and rhythm, normal S1-S2 upon auscultation. No murmurs, rubs, or clicks. Abdomen: Upper abdominal discomfort. Soft, round, no pulsatile masses. No ilda ound, no guarding. No CVA tenderness, no hepatosplenomegaly. Bowel sounds present to all four quadrants. LUQ high pitch or tinkling sounds Extremities: No cyanosis, clubbing, or edema present. Pulses are palpable 2/2. Active ROM to all four extremities. Neuro: Alert and orientated x 4. PERRLA. Cranial nerves 2-12 intact without focal deficit. Skin: Warm, dry, and intact, without rash, erythema, or lesion. Psych: pleasant, cooperative, normal speech, normal affect, no hallucinations, no dysarthria Objective Data Vital Signs Vital Signs: Vital Signs - 24 hr 11/10/24 14:02 11/10/24 14:12 11/10/24 14:22 Temperature Pulse Rate 101 H 96 94 Respiratory Rate 21 H 20 18 Blood Pressure 117/73 130/88 131/82 Pulse Oximetry 97 98 99 Oxygen Delivery Room Air Room Air Room Air Fraction of Inspired Oxygen 11/10/24 15:00 11/10/24 19:56 11/10/24 20:55 Temperature 96.6 F L 98.8 F Pulse Rate 92 95 95 Respiratory Rate 16 18 18 Blood Pressure 123/86 118/76 Pulse Oximetry 99 98 98 Oxygen Delivery Room Air Fraction of Inspired Oxygen 21 11/11/24 00:38 11/11/24 06:00 11/11/24 08:00 Temperature 97.8 F Pulse Rate 89 Respiratory Rate 16 Blood Pressure 127/80 Pulse Oximetry 91 Oxygen Delivery Autopap Room Air Fraction of Inspired Oxygen Intake/Output Intake/Output: Intake & Output 11/08/24 11/09/24 11/10/24 11/11/24 23:59 23:59 23:59 23:59 Intake Total 2029 3620.8 2508.8 390 Output Total Balance 2029 3620.8 2502.8 390 Meds/Results Medications: Active Medications Generic Name Dose Route Start Last Admin Trade Name Freq PRN Reason Stop Dose Admin Acetaminophen 650 mg 11/08/24 21:00 11/11/24 08:54 Acetaminophen 325 Mg Tablet PO 650 mg Q6H BRENDEN Administration Al Hydrox/Mg Hydrox/Simethicone 30 ml 11/08/24 16:26 Mag Hydrox/Al Hydrox/Simeth 30 Ml Udc PO QID PRN Dyspepsia Dextrose 12.5 gm 11/08/24 16:26 Dextrose 50% 25 Gm/50 Ml Syringe IV PUSH PRN PRN Hypoglycemia Protocol Enoxaparin Sodium 40 mg 11/11/24 09:00 11/11/24 08:54 Enoxaparin 40 Mg/0.4 Ml Syringe SUB-Q 40 mg DAILY BRENDEN Administration Glucagon 1 mg 11/08/24 16:26 Glucagon For Inj 1 Mg Vial IM PRN PRN Hypoglycemia Protocol Glucose 15 gm 11/08/24 16:26 Glucose Oral Gel 15 Gm Of Glucse In 37.5 Gm Tube PO PRN PRN Hypoglycemia Protocol Hydromorphone HCl 0.5 mg 11/08/24 12:57 11/08/24 20:21 Hydromorphone Hcl Inj (*Crx) 1 Mg/Ml Syr IV PUSH 0.5 mg Q4H PRN Administration Pain Rated 7-10 Dextrose 1,000 mls @ 100 mls/hr 11/08/24 16:26 Dextrose 5% 1,000 Ml IVPB PRN PRN Hypoglycemia Protocol Ampicillin Sodium/Sulbactam 100 mls @ 200 mls/hr 11/11/24 16:00 Sodium 3 gm/ Sodium Chloride IVPB Q6H [facility] Insulin Aspart 2 - 5 units 11/08/24 17:00 11/11/24 11:59 Insulin Aspart (*Bkc) 100 Units/Ml SUB-Q Not Given TIDWM [facility] Protocol Ketorolac Tromethamine 15 mg 11/08/24 17:00 11/11/24 11:58 Ketorolac 15 Mg/Ml Vial (*Bkc) IV PUSH 15 mg Q6HR BRENDEN Administration Ondansetron HCl 4 mg 11/08/24 12:57 11/09/24 21:42 Ondansetron Inj 4 Mg/2 Ml Vial IV PUSH 4 mg Q4H PRN Administration Nausea Pantoprazole Sodium 40 mg 11/09/24 09:00 11/11/24 08:54 Pantoprazole 40 Mg Tablet PO 40 mg QAM BRENDEN Administration Psyllium Hydrophilic Mucilloid 1 packet 11/12/24 09:00 Psyllium Powder Packet PO DAILY [facility] Radiology Results: ITS Impressions Abdomen/Pelvis CT 11/08/24 07:28 IMPRESSION: 1. Again highly worrisome for sigmoid colon malignancy. Recommend colonoscopy. 2. Large periumbilical hernia with fat. Minimal panniculitis at hernia neck. 3. Otherwise no acute abnormality. Labs Labs: Laboratory Results - last 24 hr 11/10/24 11/10/24 11/11/24 17:28 19:46 07:20 WBC 4.5 RBC 4.51 L Hgb 13.1 L Hct 40.8 L MCV 90.5 MCH 29.0 MCHC 32.1 RDW 13.8 Plt Count 293 MPV 10.1 Sodium 137 Potassium 3.5 Chloride 104 Carbon Dioxide 26 Anion Gap 7 BUN 14 D Creatinine 0.96 Estim Creat Clear Calc 112 Estimated GFR > 60 Glucose 128 H POC Capillary Glucose 139 H 162 H Calcium 8.6 C-Reactive Protein 6.0 H 11/11/24 11/11/24 08:18 11:45 WBC RBC Hgb Hct MCV MCH MCHC RDW Plt Count MPV Sodium Potassium Chloride Carbon Dioxide Anion Gap BUN Creatinine Estim Creat Clear Calc Estimated GFR Glucose POC Capillary Glucose 124 H 196 H Calcium C-Reactive Protein Quality VTE Prophylaxis VTE prophylaxis: mechanical ordered and pharmacologic ordered (Lovenox on hold for bleeding and scope today, resume tomorrow) Hospitalist MIPS Advance Care Plan I have confirmed that the patient's Advanced Care Plan is present, code status is documented, or surrogate decision maker is listed in patient medical record.: Yes Medication Reconciliation I have utilized all available resources to obtain, update and review the patients current medications (includes all prescriptions, OTC, herbals, cannabis, and nutritional supplements).: Yes
[2024-11-11 14:00] VITALS: BP 128/76; PULSE 87; RESP 16; TEMP 36.9; O2SAT 98
[2024-11-11] MEDS: AMPICILLIN SODIUM/SULBACTAM 3 GM in SODIUM CHLORIDE 0.9% IV 100 ML 200 ML IVPB ×2 (16:56→22:02)
--- NOTE | 2024-11-11 16:56 | P.PNGI_ITS ---
Progress Note: A&P Assessment and Plan (1) Stricture of sigmoid colon: Code(s): K56.699 - Other intestinal obstruction unspecified as to partial versus complete obstruction Status: Acute Assessment and Plan: bx only reactive changes probably from chronic diverticulitis no fever, overall better agree with abx then will follow-up with surgery to discuss if may need partial colon resection tolerating diet (2) Diverticulitis large intestine: Qualifiers: Diverticulitis bleeding: unspecified bleeding status Diverticulitis complication: unspecified complication status Qualified Code(s): K57.32 - Diverticulitis of large intestine without perforation or abscess without bleeding Code(s): K57.32 - Diverticulitis of large intestine without perforation or abscess without bleeding Status: Chronic (3) Abdominal pain: Qualifiers: Abdominal location: lower abdomen, unspecified Qualified Code(s): R10.30 - Lower abdominal pain, unspecified Code(s): R10.9 - Unspecified abdominal pain Status: Acute Assessment and Plan: improved (4) Bloody stools: Code(s): K92.1 - Melena Status: Acute (5) Type 2 diabetes mellitus without complications: Qualifiers: 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 Review of Systems Review of Systems: All systems reviewed & are unremarkable except as noted in HPI and below Exam Const: General: cooperative, comfortable, alert and awake HENMT: Face/Nose/Sinus: Normal nares present Eyes: Sclera: sclerae normal Neck: Neck: supple Resp: Effort & Inspection: normal respiratory effort Cardio: Rate: regular rate GI: Inspection: obesity (Protuberant abdomen) and visible herniation ( Umbilical) GI Palp: Yes Soft to palpation, No Tenderness to palpation present (GI) and Yes Hernia present umbilical < 3 cm (Reducible) Skin: General skin exam: normal color Neuro: Speech: normal speech Motor exam (neuro): 5/5 motor strength present throughout Extrem: General: normal to inspection Psych: Mental Status: mental status grossly normal Objective Data Vital Signs Vital Signs: Vital Signs - 24 hr 11/10/24 19:56 11/10/24 20:55 11/11/24 00:38 Temperature 98.8 F Pulse Rate 95 95 Respiratory Rate 18 18 Blood Pressure 118/76 Pulse Oximetry 98 98 Oxygen Delivery Room Air Autopap Fraction of Inspired Oxygen 11/11/24 06:00 11/11/24 08:00 11/11/24 14:00 Temperature 97.8 F 98.4 F Pulse Rate 89 87 Respiratory Rate 16 16 Blood Pressure 127/80 128/76 Pulse Oximetry 91 98 Oxygen Delivery Room Air Fraction of Inspired Oxygen Intake/Output Intake/Output: Intake & Output 11/08/24 11/09/24 11/10/24 11/11/24 23:59 23:59 23:59 23:59 Intake Total 2029 3620.8 2508.8 630 Output Total Balance 2029 3620.8 2502.8 630 Meds/Results Medications: Active Medications Generic Name Dose Route Start Last Admin Trade Name Freq PRN Reason Stop Dose Admin Acetaminophen 650 mg 11/08/24 21:00 11/11/24 08:54 Acetaminophen 325 Mg Tablet PO 650 mg Q6H BRENDEN Administration Al Hydrox/Mg Hydrox/Simethicone 30 ml 11/08/24 16:26 Mag Hydrox/Al Hydrox/Simeth 30 Ml Udc PO QID PRN Dyspepsia Dextrose 12.5 gm 11/08/24 16:26 Dextrose 50% 25 Gm/50 Ml Syringe IV PUSH PRN PRN Hypoglycemia Protocol Enoxaparin Sodium 40 mg 11/11/24 09:00 11/11/24 08:54 Enoxaparin 40 Mg/0.4 Ml Syringe SUB-Q 40 mg DAILY BRENDEN Administration Glucagon 1 mg 11/08/24 16:26 Glucagon For Inj 1 Mg Vial IM PRN PRN Hypoglycemia Protocol Glucose 15 gm 11/08/24 16:26 Glucose Oral Gel 15 Gm Of Glucse In 37.5 Gm Tube PO PRN PRN Hypoglycemia Protocol Hydromorphone HCl 0.5 mg 11/08/24 12:57 11/08/24 20:21 Hydromorphone Hcl Inj (*Crx) 1 Mg/Ml Syr IV PUSH 0.5 mg Q4H PRN Administration Pain Rated 7-10 Dextrose 1,000 mls @ 100 mls/hr 11/08/24 16:26 Dextrose 5% 1,000 Ml IVPB PRN PRN Hypoglycemia Protocol Ampicillin Sodium/Sulbactam 100 mls @ 200 mls/hr 11/11/24 16:00 Sodium 3 gm/ Sodium Chloride IVPB Q6H [facility] Insulin Aspart 2 - 5 units 11/08/24 17:00 11/11/24 11:59 Insulin Aspart (*Bkc) 100 Units/Ml SUB-Q Not Given TIDWM [facility] Protocol Ketorolac Tromethamine 15 mg 11/08/24 17:00 11/11/24 11:58 Ketorolac 15 Mg/Ml Vial (*Bkc) IV PUSH 15 mg Q6HR BRENDEN Administration Ondansetron HCl 4 mg 11/08/24 12:57 11/09/24 21:42 Ondansetron Inj 4 Mg/2 Ml Vial IV PUSH 4 mg Q4H PRN Administration Nausea Pantoprazole Sodium 40 mg 11/09/24 09:00 11/11/24 08:54 Pantoprazole 40 Mg Tablet PO 40 mg QAM BRENDEN Administration Psyllium Hydrophilic Mucilloid 1 packet 11/12/24 09:00 Psyllium Powder Packet PO DAILY [facility] Radiology Results: ITS Impressions Abdomen/Pelvis CT 11/08/24 07:28 IMPRESSION: 1. Again highly worrisome for sigmoid colon malignancy. Recommend colonoscopy. 2. Large periumbilical hernia with fat. Minimal panniculitis at hernia neck. 3. Otherwise no acute abnormality. Labs Labs: Laboratory Results - last 24 hr 11/10/24 11/10/24 11/11/24 17:28 19:46 07:20 WBC 4.5 RBC 4.51 L Hgb 13.1 L Hct 40.8 L MCV 90.5 MCH 29.0 MCHC 32.1 RDW 13.8 Plt Count 293 MPV 10.1 Sodium 137 Potassium 3.5 Chloride 104 Carbon Dioxide 26 Anion Gap 7 BUN 14 D Creatinine 0.96 Estim Creat Clear Calc 112 Estimated GFR > 60 Glucose 128 H POC Capillary Glucose 139 H 162 H Calcium 8.6 C-Reactive Protein 6.0 H 11/11/24 11/11/24 08:18 11:45 WBC RBC Hgb Hct MCV MCH MCHC RDW Plt Count MPV Sodium Potassium Chloride Carbon Dioxide Anion Gap BUN Creatinine Estim Creat Clear Calc Estimated GFR Glucose POC Capillary Glucose 124 H 196 H Calcium C-Reactive Protein
[2024-11-11 22:00] VITALS: BP 135/85; PULSE 97; RESP 18; TEMP 36.6; O2SAT 95
[2024-11-11] MEDS: ONDANSETRON INJ 4 MG/2 ML VIAL IV PUSH (22:06)
[2024-11-11] MEDS: DICYCLOMINE HCL 10 MG CAPSULE PO (22:06)
[2024-11-12 04:50] VITALS: BP 116/74; PULSE 91; RESP 16; TEMP 36.6; O2SAT 99
[2024-11-12] MEDS: AMPICILLIN SODIUM/SULBACTAM 3 GM in SODIUM CHLORIDE 0.9% IV 100 ML 200 ML IVPB ×4 (04:51→21:46)
[2024-11-12 05:30] LABS: Hematocrit 39.9 % (42.0-52.0); Hemoglobin 12.9 g/dL (14.0-18.0); Immature Granulocyte Percent A 0.5 % (0-0.5); Lymphocytes Absolute Auto 1.13 K/mm3 (0.9-3.2); Mean Corpuscular HGB Conc 32.3 g/dl (32-36); Mean Corpuscular Hemoglobin 28.5 pg (26-34); Mean Corpuscular Volume 88.1 fl (80-100); Nucleated Red Blood Cells Absolute Auto 0.000 K/mm3 (0.0-0.012); Nucleated Red Blood Cells Perc 0.0 % (0.0-0.2); Platelet Count Result 299 k/mm3 (150-375); Red Blood Count 4.53 M/mm3 (4.6-6.20); White Blood Count 4.4 K/mm3 (4.5-10.0)
[2024-11-12 05:51] LABS: Anion Gap 5 mmol/L (4-12); Blood Urea Nitrogen 18 mg/dL (9-20); CRP 4.1 mg/dL (<1.0); Calcium 8.6 mg/dL (8.4-10.2); Carbon Dioxide 24 mmol/L (22-30); Chloride 106 mmol/L (98-107); Estimated CRCL calculation 124 ml/min; Estimated Glomerular Filt Rate > 60; Glucose 147 mg/dL (65-110); Potassium 3.2 mmol/L (3.4-5.0); Sodium 135 mmol/L (137-145)
[2024-11-12] MEDS: KETOROLAC 15 MG/ML VIAL (*BKC) IV PUSH ×4 (06:24→23:04)
--- NOTE | 2024-11-12 07:35 | P.PNIM_ITS ---
Progress Note: A&P Assessment and Plan (1) Abdominal pain: Qualifiers: Abdominal location: lower abdomen, unspecified Qualified Code(s): R10.30 - Lower abdominal pain, unspecified Code(s): R10.9 - Unspecified abdominal pain Status: Acute Assessment and Plan: * CT Abd/Pelvis: * Again highly worrisome for sigmoid colon malignancy. Recommend colonoscopy. * Large periumbilical hernia with fat. Minimal panniculitis at hernia neck. * Otherwise no acute abnormality. * Persistent circumferential wall thickening and luminal narrowing proximal sigmoid. Normal RLQ appendix. Mild gaseous distention. * Denies pain in hernia * Toradol and Tylenol for pain control preferred over narcotics * Tolerating a diet but having some cramping * GI consulted-sigmoidoscopy 11/11 showed diverticulitis and edema (2) Diverticulitis large intestine: Qualifiers: Diverticulitis bleeding: unspecified bleeding status Diverticulitis complication: unspecified complication status Qualified Code(s): K57.32 - Diverticulitis of large intestine without perforation or abscess without bleeding Code(s): K57.32 - Diverticulitis of large intestine without perforation or abscess without bleeding Status: Chronic Assessment and Plan: No fevers or chills * GI consulted, appreciate recommendations * Started empiric unasyn (3) Umbilical hernia: Qualifiers: Obstruction and gangrene presence: with obstruction but without gangrene Qualified Code(s): K42.0 - Umbilical hernia with obstruction, without gangrene Code(s): K42.9 - Umbilical hernia without obstruction or gangrene Status: Chronic Assessment and Plan: * Large periumbilical hernia with fat. Minimal panniculitis at hernia neck. 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 HS * SSI * Hypoglycemia protocol (5) Bloody stools: Code(s): K92.1 - Melena Status: Acute Assessment and Plan: * Likely from internal hemorrhoids, hemoglobin within normal limits * No report of black or bloody stools overnight (6) Hiccups: Code(s): R06.6 - Hiccough Status: Acute Assessment and Plan: * Scheduled Reglan for 24 hours, now discontinued. Resolved Time Spent With Patient Time: 57 minutes Subjective Date/time seen: 11/12/24 07:35 Interval history: Overnight events Overall feeling ok this morning after eating, minimal discomfort after eating. Having BM's, more formed Potassium 3.2, Gave 40meq Added miralax KUB if worsening distention s/p zofran last night Reason for hospitalization 49-year-old male past medical history of diabetes, diverticulitis, low testosterone, presents the hospital with acute abdominal pain. CT abd/pelvis 11/08 concerning for sigmoid colon malignancy. GI and surgery consulted. S/P sigmoidoscopy 11/10 with GI, showed diverticula and localized edema, started unasyn. Surgery following. Review of Systems Review of Systems: 12 systems were reviewed and are negativ e except for as per HPI. Exam Narrative: General: well appearing, appears stated age. HEENT: normocephalic, atraumatic. Mucous membranes moist. EOMI, PERRLA, bilateral sclera anicteric, no conjunctival injection. Neck supple without JVD, lymphadenopathy, or bruit. Respiratory: clear to auscultation bilaterally. No rales/rhonchi/wheezes. Cardiovascular: Regular rate and rhythm, normal S1-S2 upon auscultation. No murmurs, rubs, or clicks. Abdomen: Upper abdominal discomfort. Soft, round, no pulsatile masses. No rebound, no guarding. No CVA tenderness, no hepatosplenomegaly. Bowel sounds present to all four quadrants. No high pitched sounds Extremities: No cyanosis, clubbing, or edema present. Pulses are palpable 2/2. Active ROM to all four extremities. Neuro: Alert and orientated x 4. PERRLA. Cranial nerves 2-12 intact without focal deficit. Skin: Warm, dry, and intact, without rash, erythema, or lesion. Psych: pleasant, cooperative, normal speech, normal affect, no hallucinations, n o dysarthria Objective Data Vital Signs Vital Signs: Vital Signs - 24 hr 11/11/24 08:00 11/11/24 14:00 11/11/24 22:00 Temperature 98.4 F 98 F Pulse Rate 87 97 Respiratory Rate 16 18 Blood Pressure 128/76 135/85 Pulse Oximetry 98 95 Oxygen Delivery Room Air 11/11/24 23:10 11/12/24 04:50 Temperature 98 F Pulse Rate 91 Respiratory Rate 16 Blood Pressure 116/74 Pulse Oximetry 99 Oxygen Delivery BiPAP Intake/Output Intake/Output: Intake & Output 11/09/24 11/10/24 11/11/24 11/12/24 23:59 23:59 23:59 23:59 Intake Total 3620.8 2508.8 1620 500 Output Total 6 Balance 3620.8 2502.8 1620 500 Meds/Results Medications: Active Medications Generic Name Dose Route Start Last Admin Trade Name Freq PRN Reason Stop Dose Admin Acetaminophen 650 mg 11/08/24 21:00 11/12/24 04:51 Acetaminophen 325 Mg Tablet PO Not Given Q6H BRENDEN Al Hydrox/Mg Hydrox/Simethicone 30 ml 11/08/24 16:26 Mag Hydrox/Al Hydrox/Simeth 30 Ml Udc PO QID PRN Dyspepsia Dextrose 12.5 gm 11/08/24 16:26 Dextrose 50% 25 Gm/50 Ml Syringe IV PUSH PRN PRN Hypoglycemia Protocol Dicyclomine HCl 10 mg 11/11/24 17:22 11/11/24 22:06 Dicyclomine Hcl 10 Mg Capsule PO 10 mg TID PRN Administration Abdominal Cramping Enoxaparin Sodium 40 mg 11/11/24 09:00 11/11/24 08:54 Enoxaparin 40 Mg/0.4 Ml Syringe SUB-Q 40 mg DAILY BRENDEN Administration Glucagon 1 mg 11/08/24 16:26 Glucagon For Inj 1 Mg Vial IM PRN PRN Hypoglycemia Protocol Glucose 15 gm 11/08/24 16:26 Glucose Oral Gel 15 Gm Of Glucse In 37.5 Gm Tube PO PRN PRN Hypoglycemia Protocol Hydromorphone HCl 0.5 mg 11/08/24 12:57 11/08/24 20:21 Hydromorphone Hcl Inj (*Crx) 1 Mg/Ml Syr IV PUSH 0.5 mg Q4H PRN Administration Pain Rated 7-10 Dextrose 1,000 mls @ 100 mls/hr 11/08/24 16:26 Dextrose 5% 1,000 Ml IVPB PRN PRN Hypoglycemia Protocol Ampicillin Sodium/Sulbactam 100 mls @ 200 mls/hr 11/11/24 16:00 11/12/24 05:21 Sodium 3 gm/ Sodium Chloride IVPB Infused Q6H [facility] Infusion Insulin Aspart 2 - 5 units 11/08/24 17:00 11/11/24 17:18 Insulin Aspart (*Bkc) 100 Units/Ml SUB-Q Not Given TIDWM [facility] Protocol Ketorolac Tromethamine 15 mg 11/08/24 17:00 11/12/24 06:24 Ketorolac 15 Mg/Ml Vial (*Bkc) IV PUSH 15 mg Q6HR BRENDEN Administration Ondansetron HCl 4 mg 11/08/24 12:57 11/11/24 22:06 Ondansetron Inj 4 Mg/2 Ml Vial IV PUSH 4 mg Q4H PRN Administration Nausea Pantoprazole Sodium 40 mg 11/09/24 09:00 11/11/24 08:54 Pantoprazole 40 Mg Tablet PO 40 mg QAM BRENDEN Administration Psyllium Hydrophilic Mucilloid 1 packet 11/12/24 09:00 Psyllium Powder Packet PO DAILY [facility] Radiology Results: ITS Impressions Abdomen/Pelvis CT 11/08/24 07:28 IMPRESSION: 1. Again highly worrisome for sigmoid colon malignancy. Recommend colonoscopy. 2. Large periumbilical hernia with fat. Minimal panniculitis at hernia neck. 3. Otherwise no acute abnormality. Labs Labs: Laboratory Results - last 24 hr 11/11/24 11/11/24 11/11/24 07:20 08:18 11:45 WBC RBC Hgb Hct MCV MCH MCHC RDW Plt Count MPV Immature Gran % (Auto) Neut % (Auto) Lymph % (Auto) [place] % (Auto) Eos % (Auto) Baso % (Auto) Lymph # (Auto) [place] # (Auto) Eos # (Auto) Baso # (Auto) Abs Immat Gran (auto) Absolute Neuts (auto) Absolute Nucleated RBC Nucleated RBC % Sodium 137 Potassium 3.5 Chloride 104 Carbon Dioxide 26 Anion Gap 7 BUN 14 D Creatinine 0.96 Estim Creat Clear Calc 112 Estimated GFR > 60 Glucose 128 H POC Capillary Glucose 124 H 196 H Calcium 8.6 C-Reactive Protein 6.0 H 11/11/24 11/11/24 11/12/24 17:03 22:15 05:13 WBC 4.4 L RBC 4.53 L Hgb 12.9 L Hct 39.9 L MCV 88.1 MCH 28.5 MCHC 32.3 RDW 13.6 Plt Count 299 MPV 10.3 Immature Gran % (Auto) 0.5 Neut % (Auto) 49.2 Lymph % (Auto) 25.5 [place] % (Auto) 20.5 H Eos % (Auto) 3.4 Baso % (Auto) 0.9 Lymph # (Auto) 1.13 [place] # (Auto) 0.9 H Eos # (Auto) 0.2 Baso # (Auto) 0.0 Abs Immat Gran (auto) 0.02 Absolute Neuts (auto) 2.2 Absolute Nucleated RBC 0.000 Nucleated RBC % 0.0 Sodium 135 L Potassium 3.2 L Chloride 106 Carbon Dioxide 24 Anion Gap 5 BUN 18 Creatinine 0.86 Estim Creat Clear Calc 124 Estimated GFR > 60 Glucose 147 H POC Capillary Glucose 132 H 151 H Calcium 8.6 C-Reactive Protein 4.1 H Quality VTE Prophylaxis VTE prophylaxis: mechanical ordered and pharmacologic ordered (Lovenox on hold for bleeding and scope today, resume tomorrow) Hospitalist MIPS Advance Care Plan I have confirmed that the patient's Advanced Care Plan is present, code status is documented, or surrogate decision maker is listed in patient medical record.: Yes Medication Reconciliation I have utilized all available resources to obtain, update and review the patients current medications (includes all prescriptions, OTC, herbals, cannabis, and nutritional supplements).: Yes
--- NOTE | 2024-11-12 07:46 | P.PNGS_ITS ---
Progress Note: A&P Assessment and Plan (1) Diverticulitis large intestine: Qualifiers: Diverticulitis bleeding: unspecified bleeding status Diverticulitis complication: unspecified complication status Qualified Code(s): K57.32 - Diverticulitis of large intestine without perforation or abscess without bleeding Code(s): K57.32 - Diverticulitis of large intestine without perforation or abscess without bleeding Status: Chronic Assessment and Plan: Abdominal pain much better. Continue IV Unasyn antibiotics. If pain will resolve, hopefully patient can go home and come back electively after bowel preparation for sigmoidectomy. (2) Umbilical hernia: Qualifiers: Obstruction and gangrene presence: with obstruction but without gangrene Qualified Code(s): K42.0 - Umbilical hernia with obstruction, without gangrene Code(s): K42.9 - Umbilical hernia without obstruction or gangrene Status: Chronic Assessment and Plan: Asymptomatic, reducible (3) BMI 40.0-44.9, adult: Code(s): Z68.41 - Body mass index [BMI] 40.0-44.9, adult Status: Chronic Assessment and Plan: Patient has lost some weight with tirzepatide but still very heavy. This would increased surgical risks. (4) Type 2 diabetes mellitus without complications: Qualifiers: Diabetes mellitus remote computer terminal operator insulin use: without remote computer terminal operator use Qualified Code(s): E11.9 - Type 2 diabetes mellitus without complications Code(s): E11.9 - Type 2 diabetes mellitus without complications Status: Chronic Subjective Subjective Date/Time Seen: 11/12/24 07:46 Patient reports: feels better, pain is less (Cramping pain across abdomen is greatly reduced yesterday and last night), voiding w/o difficulty, diarrhea (Stools starting to thicken, become more formed.) and afebrile Review of Systems Review of Systems: All systems reviewed & are unremarkable except as noted in HPI and below (HPI) Exam Const: General: cooperative, comfortable, alert and awake Orientation/consciousness: patient oriented x3 GI: Inspection: non-distended, obesity and visible herniation (Umbilical) GI Palp: Yes Soft to palpation, No Tenderness to palpation present (GI), No Guarding due to palpation present (GI) and Yes Hernia present umbilical 3-10 cm (Reducible, nontender) Objective Data Vital Signs Vital Signs: Vital Signs - 24 hr 11/11/24 08:00 11/11/24 14:00 11/11/24 22:00 Temperature 36.9 C 36.6 C Pulse Rate 87 97 Respiratory Rate 16 18 Blood Pressure 128/76 135/85 Pulse Oximetry 98 95 Oxygen Delivery Room Air 11/11/24 23:10 11/12/24 04:50 Temperature 36.6 C Pulse Rate 91 Respiratory Rate 16 Blood Pressure 116/74 Pulse Oximetry 99 Oxygen Delivery BiPAP Intake/Output Intake/Output: Intake & Output 11/09/24 11/10/24 11/11/24 11/12/24 23:59 23:59 23:59 23:59 Intake Total 3620.8 2508.8 1620 500 Output Total 6 Balance 3620.8 2502.8 1620 500 Meds/Results Medications: Active Medications Generic Name Dose Route Start Last Admin Trade Name Freq PRN Reason Stop Dose Admin Acetaminophen 650 mg 11/08/24 21:00 11/12/24 04:51 Acetaminophen 325 Mg Tablet PO Not Given Q6H BRENDEN Al Hydrox/Mg Hydrox/Simethicone 30 ml 11/08/24 16:26 Mag Hydrox/Al Hydrox/Simeth 30 Ml Udc PO QID PRN Dyspepsia Dextrose 12.5 gm 11/08/24 16:26 Dextrose 50% 25 Gm/50 Ml Syringe IV PUSH PRN PRN Hypoglycemia Protocol Dicyclomine HCl 10 mg 11/11/24 17:22 11/11/24 22:06 Dicyclomine Hcl 10 Mg Capsule PO 10 mg TID PRN Administration Abdominal Cramping Enoxaparin Sodium 40 mg 11/11/24 09:00 11/11/24 08:54 Enoxaparin 40 Mg/0.4 Ml Syringe SUB-Q 40 mg DAILY BRENDEN Administration Glucagon 1 mg 11/08/24 16:26 Glucagon For Inj 1 Mg Vial IM PRN PRN Hypoglycemia Protocol Glucose 15 gm 11/08/24 16:26 Glucose Oral Gel 15 Gm Of Glucse In 37.5 Gm Tube PO PRN PRN Hypoglycemia Protocol Hydromorphone HCl 0.5 mg 11/08/24 12:57 11/08/24 20:21 Hydromorphone Hcl Inj (*Crx) 1 Mg/Ml Syr IV PUSH 0.5 mg Q4H PRN Administration Pain Rated 7-10 Dextrose 1,000 mls @ 100 mls/hr 11/08/24 16:26 Dextrose 5% 1,000 Ml IVPB PRN PRN Hypoglycemia Protocol Ampicillin Sodium/Sulbactam 100 mls @ 200 mls/hr 11/11/24 16:00 11/12/24 05:21 Sodium 3 gm/ Sodium Chloride IVPB Infused Q6H BRENDEN Infusion Insulin Aspart 2 - 5 units 11/08/24 17:00 11/11/24 17:18 Insulin Aspart (*Bkc) 100 Units/Ml SUB-Q Not Given TIDWM [facility] Protocol Ketorolac Tromethamine 15 mg 11/08/24 17:00 11/12/24 06:24 Ketorolac 15 Mg/Ml Vial (*Bkc) IV PUSH 15 mg Q6HR BRENDEN Administration Ondansetron HCl 4 mg 11/08/24 12:57 11/11/24 22:06 Ondansetron Inj 4 Mg/2 Ml Vial IV PUSH 4 mg Q4H PRN Administration Nausea Pantoprazole Sodium 40 mg 11/09/24 09:00 11/11/24 08:54 Pantoprazole 40 Mg Tablet PO 40 mg QAM BRENDEN Administration Polyethylene Glycol 17 gm 11/12/24 09:00 Polyethylene Glycol 3350 17 Gm Powd.Pack PO QAM BRENDEN Psyllium Hydrophilic Mucilloid 1 packet 11/12/24 09:00 Psyllium Powder Packet PO DAILY [facility] Radiology Results: ITS Impressions Abdomen/Pelvis CT 11/08/24 07:28 IMPRESSION: 1. Again highly worrisome for sigmoid colon malignancy. Recommend colonoscopy. 2. Large periumbilical hernia with fat. Minimal panniculitis at hernia neck. 3. Otherwise no acute abnormality. Labs Labs: Laboratory Results - last 24 hr 11/11/24 11/11/24 11/11/24 07:20 08:18 11:45 WBC RBC Hgb Hct MCV MCH MCHC RDW Plt Count MPV Immature Gran % (Auto) Neut % (Auto) Lymph % (Auto) [place] % (Auto) Eos % (Auto) Baso % (Auto) Lymph # (Auto) [place] # (Auto) Eos # (Auto) Baso # (Auto) Abs Immat Gran (auto) Absolute Neuts (auto) Absolute Nucleated RBC Nucleated RBC % Sodium 137 Potassium 3.5 Chloride 104 Carbon Dioxide 26 Anion Gap 7 BUN 14 D Creatinine 0.96 Estim Creat Clear Calc 112 Estimated GFR > 60 Glucose 128 H POC Capillary Glucose 124 H 196 H Calcium 8.6 C-Reactive Protein 6.0 H 11/11/24 11/11/24 11/12/24 17:03 22:15 05:13 WBC 4.4 L RBC 4.53 L Hgb 12.9 L Hct 39.9 L MCV 88.1 MCH 28.5 MCHC 32.3 RDW 13.6 Plt Count 299 MPV 10.3 Immature Gran % (Auto) 0.5 Neut % (Auto) 49.2 Lymph % (Auto) 25.5 [place] % (Auto) 20.5 H Eos % (Auto) 3.4 Baso % (Auto) 0.9 Lymph # (Auto) 1.13 [place] # (Auto) 0.9 H Eos # (Auto) 0.2 Baso # (Auto) 0.0 Abs Immat Gran (auto) 0.02 Absolute Neuts (auto) 2.2 Absolute Nucleated RBC 0.000 Nucleated RBC % 0.0 Sodium 135 L Potassium 3.2 L Chloride 106 Carbon Dioxide 24 Anion Gap 5 BUN 18 Creatinine 0.86 Estim Creat Clear Calc 124 Estimated GFR > 60 Glucose 147 H POC Capillary Glucose 132 H 151 H Calcium 8.6 C-Reactive Protein 4.1 H
[2024-11-12] MEDS: PSYLLIUM POWDER PACKET 1 PACKET PO (09:13)
[2024-11-12] MEDS: ACETAMINOPHEN 325 MG TABLET 650 MG PO ×3 (09:13→20:12)
[2024-11-12] MEDS: PANTOPRAZOLE 40 MG TABLET PO (09:13)
[2024-11-12] MEDS: POTASSIUM CHLORIDE 20 MEQ ER TABLET 40 MEQ PO (09:13)
[2024-11-12] MEDS: ENOXAPARIN 40 MG/0.4 ML SYRINGE SUB-Q (09:14)
[2024-11-12 14:00] VITALS: BP 110/68; PULSE 82; RESP 18; TEMP 36.6; O2SAT 100
--- NOTE | 2024-11-12 17:34 | P.PNGI_ITS ---
Progress Note: A&P Assessment and Plan (1) Stricture of sigmoid colon: Code(s): K56.699 - Other intestinal obstruction unspecified as to partial versus complete obstruction Status: Acute Assessment and Plan: bx only reactive changes probably from chronic diverticulitis no fever, overall better agree with abx then will follow-up with surgery to discuss if may need partial colon resection tolerating diet, hopefully home in 2 days or so (2) Diverticulitis large intestine: Qualifiers: Diverticulitis bleeding: unspecified bleeding status Diverticulitis complication: unspecified complication status Qualified Code(s): K57.32 - Diverticulitis of large intestine without perforation or abscess without bleeding Code(s): K57.32 - Diverticulitis of large intestine without perforation or abscess without bleeding Status: Chronic Assessment and Plan: on abx no pain, no fever (3) Abdominal pain: Qualifiers: Abdominal location: lower abdomen, unspecified Qualified Code(s): R10.30 - Lower abdominal pain, unspecified Code(s): R10.9 - Unspecified abdominal pain Status: Acute Assessment and Plan: improved (4) Bloody stools: Code(s): K92.1 - Melena Status: Acute Assessment and Plan: resolved (5) Type 2 diabetes mellitus without complications: Qualifiers: Diabetes mellitus half-way insulin use: without half-way use Qualified Code(s): E11.9 - Type 2 diabetes mellitus without complications Code(s): E11.9 - Type 2 diabetes mellitus without complications Status: Chronic Subjective Date/time seen: 11/12/24 17:34 Interval history: pain has improved, stool starting to form, overall better Review of Systems Review of Systems: All systems reviewed & are unremarkable except as noted in HPI and below Exam Const: General: cooperative, comfortable, alert and awake HENMT: Face/Nose/Sinus: Normal nares present Eyes: Sclera: sclerae normal Neck: Neck: supple Resp: Effort & Inspection: normal respiratory effort Cardio: Rate: regular rate GI: Inspection: obesity (Protuberant abdomen) and visible herniation (Umbilical) GI Palp: Yes Soft to palpation, No Tenderness to palpation present (GI) and Yes Hernia present umbilical < 3 cm (Reducible) Skin: General skin exam: normal color Neuro: Speech: normal speech Motor exam (neuro): 5/5 motor strength present throughout Extrem: General: normal to inspection Psych: Mental Status: mental status grossly normal Objective Data Vital Signs Vital Signs: Vital Signs - 24 hr 11/11/24 22:00 11/11/24 23:10 11/12/24 04:50 Temperature 98 F 98 F Pulse Rate 97 91 Respiratory Rate 18 16 Blood Pressure 135/85 116/74 Pulse Oximetry 95 99 Oxygen Delivery BiPAP 11/12/24 08:00 11/12/24 14:00 Temperature 97.9 F Pulse Rate 82 Respiratory Rate 18 Blood Pressure 110/68 Pulse Oximetry 100 Oxygen Delivery Room Air Intake/Output Intake/Output: Intake & Output 11/09/24 11/10/24 11/11/24 11/12/24 23:59 23:59 23:59 23:59 Intake Total 3620.8 2508.8 1620 2156 Output Total 6 Balance 3620.8 2502.8 1620 2156 Meds/Results Medications: Active Medications Generic Name Dose Route Start Last Admin Trade Name Freq PRN Reason Stop Dose Admin Acetaminophen 650 mg 11/08/24 21:00 11/12/24 17:01 Acetaminophen 325 Mg Tablet PO 650 mg Q6H BRENDEN Administration Al Hydrox/Mg Hydrox/Simethicone 30 ml 11/08/24 16:26 Mag Hydrox/Al Hydrox/Simeth 30 Ml Udc PO QID PRN Dyspepsia Dextrose 12.5 gm 11/08/24 16:26 Dextrose 50% 25 Gm/50 Ml Syringe IV PUSH PRN PRN Hypoglycemia Protocol Dicyclomine HCl 10 mg 11/11/24 17:22 11/11/24 22:06 Dicyclomine Hcl 10 Mg Capsule PO 10 mg TID PRN Administration Abdominal Cramping Enoxaparin Sodium 40 mg 11/11/24 09:00 11/12/24 09:14 Enoxaparin 40 Mg/0.4 Ml Syringe SUB-Q 40 mg DAILY BRENDEN Administration Glucagon 1 mg 11/08/24 16:26 Glucagon For Inj 1 Mg Vial IM PRN PRN Hypoglycemia Protocol Glucose 15 gm 11/08/24 16:26 Glucose Oral Gel 15 Gm Of Glucse In 37.5 Gm Tube PO PRN PRN Hypoglycemia Protocol Hydromorphone HCl 0.5 mg 11/08/24 12:57 11/08/24 20:21 Hydromorphone Hcl Inj (*Crx) 1 Mg/Ml Syr IV PUSH 0.5 mg Q4H PRN Administration Pain Rated 7-10 Dextrose 1,000 mls @ 100 mls/hr 11/08/24 16:26 Dextrose 5% 1,000 Ml IVPB PRN PRN Hypoglycemia Protocol Ampicillin Sodium/Sulbactam 100 mls @ 200 mls/hr 11/11/24 16:00 11/12/24 17:01 Sodium 3 gm/ Sodium Chloride IVPB 200 mls/hr Q6H BRENDEN Administration Insulin Aspart 2 - 5 units 11/08/24 17:00 11/12/24 16:59 Insulin Aspart (*Bkc) 100 Units/Ml SUB-Q Not Given TIDWM BRENDEN Protocol Ketorolac Tromethamine 15 mg 11/08/24 17:00 11/12/24 17:02 Ketorolac 15 Mg/Ml Vial (*Bkc) IV PUSH 15 mg Q6HR BRENDEN Administration Ondansetron HCl 4 mg 11/08/24 12:57 11/11/24 22:06 Ondansetron Inj 4 Mg/2 Ml Vial IV PUSH 4 mg Q4H PRN Administration Nausea Pantoprazole Sodium 40 mg 11/09/24 09:00 11/12/24 09:13 Pantoprazole 40 Mg Tablet PO 40 mg QAM BRENDEN Administration Psyllium Hydrophilic Mucilloid 1 packet 11/12/24 09:00 11/12/24 09:13 Psyllium Powder Packet PO 1 packet DAILY BRENDEN Administration Radiology Results: ITS Impressions Abdomen/Pelvis CT 11/08/24 07:28 IMPRESSION: 1. Again highly worrisome for sigmoid colon malignancy. Recommend colonoscopy. 2. Large periumbilical hernia with fat. Minimal panniculitis at hernia neck. 3. Otherwise no acute abnormality. Labs Labs: Laboratory Results - last 24 hr 11/11/24 11/12/24 11/12/24 22:15 05:13 08:12 WBC 4.4 L RBC 4.53 L Hgb 12.9 L Hct 39.9 L MCV 88.1 MCH 28.5 MCHC 32.3 RDW 13.6 Plt Count 299 MPV 10.3 Immature Gran % (Auto) 0.5 Neut % (Auto) 49.2 Lymph % (Auto) 25.5 [place] % (Auto) 20.5 H Eos % (Auto) 3.4 Baso % (Auto) 0.9 Lymph # (Auto) 1.13 [place] # (Auto) 0.9 H Eos # (Auto) 0.2 Baso # (Auto) 0.0 Abs Immat Gran (auto) 0.02 Absolute Neuts (auto) 2.2 Absolute Nucleated RBC 0.000 Nucleated RBC % 0.0 Sodium 135 L Potassium 3.2 L Chloride 106 Carbon Dioxide 24 Anion Gap 5 BUN 18 Creatinine 0.86 Estim Creat Clear Calc 124 Estimated GFR > 60 Glucose 147 H POC Capillary Glucose 151 H 109 H Calcium 8.6 C-Reactive Protein 4.1 H 11/12/24 11/12/24 11:41 16:48 WBC RBC Hgb Hct MCV MCH MCHC RDW Plt Count MPV Immature Gran % (Auto) Neut % (Auto) Lymph % (Auto) [place] % (Auto) Eos % (Auto) Baso % (Auto) Lymph # (Auto) [place] # (Auto) Eos # (Auto) Baso # (Auto) Abs Immat Gran (auto) Absolute Neuts (auto) Absolute Nucleated RBC Nucleated RBC % Sodium Potassium Chloride Carbon Dioxide Anion Gap BUN Creatinine Estim Creat Clear Calc Estimated GFR Glucose POC Capillary Glucose 135 H 116 H Calcium C-Reactive Protein
[2024-11-12 20:00] VITALS: PULSE 88; RESP 20; O2SAT 98
[2024-11-12] MEDS: DICYCLOMINE HCL 10 MG CAPSULE PO (20:12)
[2024-11-12] MEDS: ONDANSETRON INJ 4 MG/2 ML VIAL IV PUSH (20:12)
[2024-11-12 22:00] VITALS: BP 123/85; PULSE 88; RESP 20; TEMP 37.1; O2SAT 98
[2024-11-13 03:00] VITALS: PULSE 88; O2SAT 99
[2024-11-13] MEDS: AMPICILLIN SODIUM/SULBACTAM 3 GM in SODIUM CHLORIDE 0.9% IV 100 ML 200 ML IVPB ×4 (04:59→21:25)
[2024-11-13] MEDS: KETOROLAC 15 MG/ML VIAL (*BKC) IV PUSH ×2 (05:00→12:07)
[2024-11-13 06:00] VITALS: BP 112/78; PULSE 85; RESP 18; TEMP 36.8; O2SAT 97
[2024-11-13 06:14] LABS: Hematocrit 38.3 % (42.0-52.0); Hemoglobin 12.5 g/dL (14.0-18.0); Mean Corpuscular HGB Conc 32.6 g/dl (32-36); Mean Corpuscular Hemoglobin 28.7 pg (26-34); Mean Corpuscular Volume 87.8 fl (80-100); Platelet Count Result 281 k/mm3 (150-375); Red Blood Count 4.36 M/mm3 (4.6-6.20); White Blood Count 5.5 K/mm3 (4.5-10.0)
[2024-11-13 06:38] LABS: Anion Gap 4 mmol/L (4-12); Blood Urea Nitrogen 19 mg/dL (9-20); CRP 6.7 mg/dL (<1.0); Calcium 8.5 mg/dL (8.4-10.2); Carbon Dioxide 27 mmol/L (22-30); Chloride 106 mmol/L (98-107); Estimated CRCL calculation 119 ml/min; Estimated Glomerular Filt Rate > 60; Glucose 114 mg/dL (65-110); Potassium 3.3 mmol/L (3.4-5.0); Sodium 137 mmol/L (137-145)
--- NOTE | 2024-11-13 08:31 | PM.PNGS ---
Progress Note: A&P Assessment and Plan (1) Diverticulitis large intestine: Qualifiers: Diverticulitis bleeding: unspecified bleeding status Diverticulitis complication: unspecified complication status Qualified Code(s): K57.32 - Diverticulitis of large intestine without perforation or abscess without bleeding Code(s): K57.32 - Diverticulitis of large intestine without perforation or abscess without bleeding Status: Chronic Assessment and Plan: Improving, pain not entirely gone. Continue IV Unasyn again today. Hopefully, home on oral antibiotics tomorrow. (2) Umbilical hernia: Qualifiers: Obstruction and gangrene presence: with obstruction but without gangrene Qualified Code(s): K42.0 - Umbilical hernia with obstruction, without gangrene Code(s): K42.9 - Umbilical hernia without obstruction or gangrene Status: Chronic Assessment and Plan: Asymptomatic, reducible (3) BMI 40.0-44.9, adult: Code(s): Z68.41 - Body mass index [BMI] 40.0-44.9, adult Status: Chronic Assessment and Plan: GL P 1 agonist on hold (4) Type 2 diabetes mellitus without complications: Qualifiers: Diabetes mellitus assisted insulin use: without assisted use Qualified Code(s): E11.9 - Type 2 diabetes mellitus without complications Code(s): E11.9 - Type 2 diabetes mellitus without complications Status: Chronic Subjective Subjective Date/Time Seen: 11/13/24 08:31 Patient reports: still having pain (Had some of the cramping pain last night but did not last long, did not require analgesics.), tolerating a regular diet (Low-fiber), voiding w/o difficulty, diarrhea (Improving) and afebrile Exam Const: General: comfortable and awake GI: Inspection: non-distended, obesity and visible herniation GI Palp: Yes Soft to palpation, No Tenderness to palpation present (GI), No Guarding due to palpation present (GI) and Yes Hernia present umbilical Objective Data Vital Signs Vital Signs: Vital Signs - 24 hr 11/12/24 14:00 11/12/24 20:00 11/12/24 22:00 Temperature 36.6 C 37.1 C Pulse Rate 82 88 88 Respiratory Rate 18 20 20 Blood Pressure 110/68 123/85 Pulse Oximetry 100 98 98 Oxygen Delivery Room Air Fraction of Inspired Oxygen 11/12/24 23:23 11/13/24 02:40 11/13/24 06:00 Temperature 36.8 C Pulse Rate 85 Respiratory Rate 18 Blood Pressure 112/78 Pulse Oximetry 97 Oxygen Delivery Autopap Autopap Fraction of Inspired Oxygen Intake/Output Intake/Output: Intake & Output 11/10/24 11/11/24 11/12/24 11/13/24 23:59 23:59 23:59 23:59 Intake Total 2508.8 1620 2596 500 Output Total 6 Balance 2502.8 1620 2596 500 Meds/Results Medications: Active Medications Generic Name Dose Route Start Last Admin Trade Name Freq PRN Reason Stop Dose Admin Acetaminophen 650 mg 11/08/24 21:00 11/13/24 04:58 Acetaminophen 325 Mg Tablet PO Not Given Q6H BRENDEN Al Hydrox/Mg Hydrox/Simethicone 30 ml 11/08/24 16:26 Mag Hydrox/Al Hydrox/Simeth 30 Ml Udc PO QID PRN Dyspepsia Dextrose 12.5 gm 11/08/24 16:26 Dextrose 50% 25 Gm/50 Ml Syringe IV PUSH PRN PRN Hypoglycemia Protocol Dicyclomine HCl 10 mg 11/11/24 17:22 11/12/24 20:12 Dicyclomine Hcl 10 Mg Capsule PO 10 mg TID PRN Administration Abdominal Cramping Enoxaparin Sodium 40 mg 11/11/24 09:00 11/12/24 09:14 Enoxaparin 40 Mg/0.4 Ml Syringe SUB-Q 40 mg DAILY BRENDEN Administration Glucagon 1 mg 11/08/24 16:26 Glucagon For Inj 1 Mg Vial IM PRN PRN Hypoglycemia Protocol Glucose 15 gm 11/08/24 16:26 Glucose Oral Gel 15 Gm Of Glucse In 37.5 Gm Tube PO PRN PRN Hypoglycemia Protocol Hydromorphone HCl 0.5 mg 11/08/24 12:57 11/08/24 20:21 Hydromorphone Hcl Inj (*Crx) 1 Mg/Ml Syr IV PUSH 0.5 mg Q4H PRN Administration Pain Rated 7-10 Dextrose 1,000 mls @ 100 mls/hr 11/08/24 16:26 Dextrose 5% 1,000 Ml IVPB PRN PRN Hypoglycemia Protocol Ampicillin Sodium/Sulbactam 100 mls @ 200 mls/hr 11/11/24 16:00 11/13/24 05:29 Sodium 3 gm/ Sodium Chloride IVPB Infused Q6H BRENDEN Infusion Insulin Aspart 2 - 5 units 11/08/24 17:00 11/12/24 16:59 Insulin Aspart (*Bkc) 100 Units/Ml SUB-Q Not Given TIDWM [facility] Protocol Ketorolac Tromethamine 15 mg 11/08/24 17:00 11/13/24 05:00 Ketorolac 15 Mg/Ml Vial (*Bkc) IV PUSH 15 mg Q6HR BRENDEN Administration Ondansetron HCl 4 mg 11/08/24 12:57 11/12/24 20:12 Ondansetron Inj 4 Mg/2 Ml Vial IV PUSH 4 mg Q4H PRN Administration Nausea Pantoprazole Sodium 40 mg 11/09/24 09:00 11/12/24 09:13 Pantoprazole 40 Mg Tablet PO 40 mg QAM BRENDEN Administration Psyllium Hydrophilic Mucilloid 1 packet 11/12/24 09:00 11/12/24 09:13 Psyllium Powder Packet PO 1 packet DAILY BRENDEN Administration Radiology Results: ITS Impressions Abdomen/Pelvis CT 11/08/24 07:28 IMPRESSION: 1. Again highly worrisome for sigmoid colon malignancy. Recommend colonoscopy. 2. Large periumbilical hernia with fat. Minimal panniculitis at hernia neck. 3. Otherwise no acute abnormality. Labs Labs: Laboratory Results - last 24 hr 11/12/24 11/12/24 11/12/24 08:12 11:41 16:48 WBC RBC Hgb Hct MCV MCH MCHC RDW Plt Count MPV Sodium Potassium Chloride Carbon Dioxide Anion Gap BUN Creatinine Estim Creat Clear Calc Estimated GFR Glucose POC Capillary Glucose 109 H 135 H 116 H Calcium C-Reactive Protein 11/12/24 11/13/24 11/13/24 21:43 05:39 08:01 WBC 5.5 RBC 4.36 L Hgb 12.5 L Hct 38.3 L MCV 87.8 MCH 28.7 MCHC 32.6 RDW 13.7 Plt Count 281 MPV 10.5 H Sodium 137 Potassium 3.3 L Chloride 106 Carbon Dioxide 27 Anion Gap 4 BUN 19 Creatinine 0.90 Estim Creat Clear Calc 119 Estimated GFR > 60 Glucose 114 H POC Capillary Glucose 117 H 113 H Calcium 8.5 C-Reactive Protein 6.7 H
[2024-11-13] MEDS: ACETAMINOPHEN 325 MG TABLET 650 MG PO ×3 (09:07→21:24)
[2024-11-13] MEDS: PANTOPRAZOLE 40 MG TABLET PO (09:07)
[2024-11-13] MEDS: ENOXAPARIN 40 MG/0.4 ML SYRINGE SUB-Q (09:07)
[2024-11-13] MEDS: PSYLLIUM POWDER PACKET 1 PACKET PO (09:07)
[2024-11-13 14:00] VITALS: BP 188/81; PULSE 88; RESP 17; TEMP 37; O2SAT 99
--- NOTE | 2024-11-13 16:51 | P.PNGI_ITS ---
Progress Note: A&P Assessment and Plan (1) Stricture of sigmoid colon: Code(s): K56.699 - Other intestinal obstruction unspecified as to partial versus complete obstruction Status: Acute Assessment and Plan: bx only reactive changes probably from chronic diverticulitis no fever and much better plan is to switch to oral abx tomorrow and go home then will follow-up with surgery to discuss if may need partial colon resection tolerating diet (2) Diverticulitis large intestine: Qualifiers: Diverticulitis bleeding: unspecified bleeding status Diverticulitis complication: unspecified complication status Qualified Code(s): K57.32 - Diverticulitis of large intestine without perforation or abscess without bleeding Code(s): K57.32 - Diverticulitis of large intestine without perforation or abscess without bleeding Status: Chronic Assessment and Plan: on abx no pain, no fever (3) Abdominal pain: Qualifiers: Abdominal location: lower abdomen, unspecified Qualified Code(s): R10.30 - Lower abdominal pain, unspecified Code(s): R10.9 - Unspecified abdominal pain Status: Acute Assessment and Plan: improved (4) Bloody stools: Code(s): K92.1 - Melena Status: Acute Assessment and Plan: resolved (5) Type 2 diabetes mellitus without complications: Qualifiers: Diabetes mellitus care home insulin use: without long term care administrator use Qualified Code(s): E11.9 - Type 2 diabetes mellitus without complications Code(s): E11.9 - Type 2 diabetes mellitus without complications Status: Chronic Subjective Date/time seen: 11/13/24 16:51 Interval history: pain has improved and eating more he is hoping to go home tomorrow Review of Systems Review of Systems: All systems reviewed & are unremarkable except as noted in HPI and below Exam Const: General: cooperative, comfortable, alert and awake HENMT: Face/Nose/Sinus: Normal nares present Eyes: Sclera: sclerae normal Neck: Neck: supple Resp: Effort & Inspection: normal respiratory effort Cardio: Rate: regular rate GI: Inspection: obesity (Protuberant abdomen) and visible herniation (Umbilical) GI Palp: Yes Soft to palpation, No Tenderness to palpation present (GI) and Yes Hernia present umbilical < 3 cm (Reducible) Skin: General skin exam: normal color Neuro: Speech: normal speech Motor exam (neuro): 5/5 motor strength present throughout Extrem: General: normal to inspection Psych: Mental Status: mental status grossly normal Objective Data Vital Signs Vital Signs: Vital Signs - 24 hr 11/12/24 20:00 11/12/24 22:00 11/12/24 23:23 Temperature 98.7 F Pulse Rate 88 88 Respiratory Rate 20 20 Blood Pressure 123/85 Pulse Oximetry 98 98 Oxygen Delivery Room Air Autopap Fraction of Inspired Oxygen 21 11/13/24 02:40 11/13/24 06:00 11/13/24 08:00 Temperature 98.3 F Pulse Rate 85 Respiratory Rate 18 Blood Pressure 112/78 Pulse Oximetry 97 Oxygen Delivery Autopap Autopap Fraction of Inspired Oxygen 11/13/24 14:00 Temperature 98.6 F Pulse Rate 88 Respiratory Rate 17 Blood Pressure 188/81 H Pulse Oximetry 99 Oxygen Delivery Fraction of Inspired Oxygen Intake/Output Intake/Output: Intake & Output 11/10/24 11/11/24 11/12/24 11/13/24 23:59 23:59 23:59 23:59 Intake Total 2508.8 1620 2596 1216 Output Total 6 Balance 2502.8 1620 2596 1216 Meds/Results Medications: Active Medications Generic Name Dose Route Start Last Admin Trade Name Freq PRN Reason Stop Dose Admin Acetaminophen 650 mg 11/08/24 21:00 11/13/24 09:07 Acetaminophen 325 Mg Tablet PO 650 mg Q6H BRENDEN Administration Al Hydrox/Mg Hydrox/Simethicone 30 ml 11/08/24 16:26 Mag Hydrox/Al Hydrox/Simeth 30 Ml Udc PO QID PRN Dyspepsia Dextrose 12.5 gm 11/08/24 16:26 Dextrose 50% 25 Gm/50 Ml Syringe IV PUSH PRN PRN Hypoglycemia Protocol Dicyclomine HCl 10 mg 11/11/24 17:22 11/12/24 20:12 Dicyclomine Hcl 10 Mg Capsule PO 10 mg TID PRN Administration Abdominal Cramping Enoxaparin Sodium 40 mg 11/11/24 09:00 11/13/24 09:07 Enoxaparin 40 Mg/0.4 Ml Syringe SUB-Q 40 mg DAILY BRENDEN Administration Glucagon 1 mg 11/08/24 16:26 Glucagon For Inj 1 Mg Vial IM PRN PRN Hypoglycemia Protocol Glucose 15 gm 11/08/24 16:26 Glucose Oral Gel 15 Gm Of Glucse In 37.5 Gm Tube PO PRN PRN Hypoglycemia Protocol Hydromorphone HCl 0.5 mg 11/08/24 12:57 11/08/24 20:21 Hydromorphone Hcl Inj (*Crx) 1 Mg/Ml Syr IV PUSH 0.5 mg Q4H PRN Administration Pain Rated 7-10 Dextrose 1,000 mls @ 100 mls/hr 11/08/24 16:26 Dextrose 5% 1,000 Ml IVPB PRN PRN Hypoglycemia Protocol Ampicillin Sodium/Sulbactam 100 mls @ 200 mls/hr 11/11/24 16:00 11/13/24 09:08 Sodium 3 gm/ Sodium Chloride IVPB 200 mls/hr Q6H BRENDEN Administration Insulin Aspart 2 - 5 units 11/08/24 17:00 11/13/24 12:02 Insulin Aspart (*Bkc) 100 Units/Ml SUB-Q Not Given TIDWM [facility]END[facility] Protocol Ketorolac Tromethamine 15 mg 11/08/24 17:00 11/13/24 12:07 Ketorolac 15 Mg/Ml Vial (*Bkc) IV PUSH 15 mg Q6HR BRENDEN Administration Ondansetron HCl 4 mg 11/08/24 12:57 11/12/24 20:12 Ondansetron Inj 4 Mg/2 Ml Vial IV PUSH 4 mg Q4H PRN Administration Nausea Pantoprazole Sodium 40 mg 11/09/24 09:00 11/13/24 09:07 Pantoprazole 40 Mg Tablet PO 40 mg QAM BRENDEN Administration Psyllium Hydrophilic Mucilloid 1 packet 11/12/24 09:00 11/13/24 09:07 Psyllium Powder Packet PO 1 packet DAILY BRENDEN Administration Radiology Results: ITS Impressions Abdomen/Pelvis CT 11/08/24 07:28 IMPRESSION: 1. Again highly worrisome for sigmoid colon malignancy. Recommend colonoscopy. 2. Large periumbilical hernia with fat. Minimal panniculitis at hernia neck. 3. Otherwise no acute abnormality. Labs Labs: Laboratory Results - last 24 hr 11/12/24 11/12/24 11/13/24 16:48 21:43 05:39 WBC 5.5 RBC 4.36 L Hgb 12.5 L Hct 38.3 L MCV 87.8 MCH 28.7 MCHC 32.6 RDW 13.7 Plt Count 281 MPV 10.5 H Sodium 137 Potassium 3.3 L Chloride 106 Carbon Dioxide 27 Anion Gap 4 BUN 19 Creatinine 0.90 Estim Creat Clear Calc 119 Estimated GFR > 60 Glucose 114 H POC Capillary Glucose 116 H 117 H Calcium 8.5 C-Reactive Protein 6.7 H 11/13/24 11/13/24 11/13/24 08:01 11:35 15:33 WBC RBC Hgb Hct MCV MCH MCHC RDW Plt Count MPV Sodium Potassium Chloride Carbon Dioxide Anion Gap BUN Creatinine Estim Creat Clear Calc Estimated GFR Glucose POC Capillary Glucose 113 H 106 H 137 H Calcium C-Reactive Protein
--- NOTE | 2024-11-13 17:56 | P.PNIM_ITS ---
Progress Note: A&P Assessment and Plan (1) Abdominal pain: Qualifiers: Abdominal location: lower abdomen, unspecified Qualified Code(s): R10.30 - Lower abdominal pain, unspecified Code(s): R10.9 - Unspecified abdominal pain Status: Acute Assessment and Plan: * CT Abd/Pelvis: * Again highly worrisome for sigmoid colon malignancy. Recommend colonoscopy. * Large periumbilical hernia with fat. Minimal panniculitis at hernia neck. * Otherwise no acute abnormality. * Persistent circumferential wall thickening and luminal narrowing proximal sigmoid. Normal RLQ appendix. Mild gaseous distention. * Denies pain in hernia * Toradol and Tylenol for pain control preferred over narcotics * Tolerating a diet but having some cramping * GI consulted-sigmoidoscopy 11/11 showed diverticulitis and edema * Started on IV antibiotics as noted below and is improving (2) Diverticulitis large intestine: Qualifiers: Diverticulitis bleeding: unspecified bleeding status Diverticulitis complication: unspecified complication status Qualified Code(s): K57.32 - Diverticulitis of large intestine without perforation or abscess without bleedin g Code(s): K57.32 - Diverticulitis of large intestine without perforation or abscess without bleeding Status: Chronic Assessment and Plan: No fevers or chills * GI & Surgery consulted, appreciate recommendations * Continue empiric unasyn (3) Umbilical hernia: Qualifiers: Obstruction and gangrene presence: with obstruction but without gangrene Qualified Code(s): K42.0 - Umbilical hernia with obstruction, without gangrene Code(s): K42.9 - Umbilical hernia without obstruction or gangrene Status: Chronic Assessment and Plan: * Large periumbilical hernia with fat. Minimal panniculitis at hernia neck. * Hernia is soft, easily reducible, no pain on palpation and non erythremic * Surgery consulted, appreciate recommendations (4) Type 2 diabetes mellitus without complications: Qualifiers: Diabetes mellitus ferry terminal supervisor insulin use: without ferry terminal supervisor use Qualified Code(s): E11.9 - Type 2 diabetes mellitus without complications Code(s): E11.9 - Type 2 diabetes mellitus without complications Status: Chronic Assessment and Plan: Blood sugars overall controlled * Patient takes Tresiba Mondays * Accu-Cheks a.c. HS * SSI * Hypoglycemia protocol (5) Bloody stools: Code(s): K92.1 - Melena Status: Acute Assessment and Plan: * Likely from internal hemorrhoids, hemoglobin within normal limits * No report of black or bloody stools overnight (6) Hiccups: Code(s): R06.6 - Hiccough Status: Acute Assessment and Plan: * Scheduled Reglan for 24 hours, now discontinued. Resolved Time Spent With Patient Time: 56 minutes Subjective Date/time seen: 11/13/24 15:50 Interval history: Eating well today. Still feels bloating after eating. Nausea improved. Had taco caputo today. Having BM's, loose, not watery Still on IV Unasyn per surgery recommendations Ambulating in the hallways Exam Narrative: General - Awake and alert. No acute distress Eyes - PERRLA, EOM intact ENT - No thrush, No erythema Neck - No noticeable or palpable swelling Lymph Nodes - No lymphadenopathy Cardiovascular - RRR no m/r/g, no JVD Lungs: Clear to auscultation, No wheezing, use of accessory muscles, no crackles Skin - Skin warm and dry, no wounds or rashes Abdomen - Normal bowel sounds, abdomen soft and nontender, round Extremities - No edema, cyanosis or clubbing Musculoskeletal - 5/5 strength, normal range of motion, no swollen or ashwin thematous joints. Neurological ? Alert and oriented x 3, CN 2-12 grossly intact. Psych: Normal mood and affect Objective Data Vital Signs Vital Signs: Vital Signs - 24 hr 11/12/24 20:00 11/12/24 22:00 11/12/24 23:23 Temperature 98.7 F Pulse Rate 88 88 Respiratory Rate 20 20 Blood Pressure 123/85 Pulse Oximetry 98 98 Oxygen Delivery Room Air Autopap Fraction of Inspired Oxygen 21 11/13/24 02:40 11/13/24 06:00 11/13/24 08:00 Temperature 98.3 F Pulse Rate 85 Respiratory Rate 18 Blood Pressure 112/78 Pulse Oximetry 97 Oxygen Delivery Autopap Autopap Fraction of Inspired Oxygen 11/13/24 14:00 Temperature 98.6 F Pulse Rate 88 Respiratory Rate 17 Blood Pressure 188/81 H Pulse Oximetry 99 Oxygen Delivery Fraction of Inspired Oxygen Intake/Output Intake/Output: Intake & Output 11/10/24 11/11/24 11/12/24 11/13/24 23:59 23:59 23:59 23:59 Intake Total 2508.8 1620 2596 2766 Output Total 6 Balance 2502.8 1620 6436 2766 Meds/Results Medications: Active Medications Generic Name Dose Route Start Last Admin Trade Name Freq PRN Reason Stop Dose Admin Acetaminophen 650 mg 11/08/24 21:00 11/13/24 16:56 Acetaminophen 325 Mg Tablet PO 650 mg Q6H BRENDEN Administration Al Hydrox/Mg Hydrox/Simethicone 30 ml 11/08/24 16:26 Mag Hydrox/Al Hydrox/Simeth 30 Ml Udc PO QID PRN Dyspepsia Dextrose 12.5 gm 11/08/24 16:26 Dextrose 50% 25 Gm/50 Ml Syringe IV PUSH PRN PRN Hypoglycemia Protocol Dicyclomine HCl 10 mg 11/11/24 17:22 11/12/24 20:12 Dicyclomine Hcl 10 Mg Capsule PO 10 mg TID PRN Administration Abdominal Cramping Enoxaparin Sodium 40 mg 11/11/24 09:00 11/13/24 09:07 Enoxaparin 40 Mg/0.4 Ml Syringe SUB-Q 40 mg DAILY BRENDEN Administration Glucagon 1 mg 11/08/24 16:26 Glucagon For Inj 1 Mg Vial IM PRN PRN Hypoglycemia Protocol Glucose 15 gm 11/08/24 16:26 Glucose Oral Gel 15 Gm Of Glucse In 37.5 Gm Tube PO PRN PRN Hypoglycemia Protocol Hydromorphone HCl 0.5 mg 11/08/24 12:57 11/08/24 20:21 Hydromorphone Hcl Inj (*Crx) 1 Mg/Ml Syr IV PUSH 0.5 mg Q4H PRN Administration Pain Rated 7-10 Dextrose 1,000 mls @ 100 mls/hr 11/08/24 16:26 Dextrose 5% 1,000 Ml IVPB PRN PRN Hypoglycemia Protocol Ampicillin Sodium/Sulbactam 100 mls @ 200 mls/hr 11/11/24 16:00 11/13/24 16:56 Sodium 3 gm/ Sodium Chloride IVPB 200 mls/hr Q6H BRENDEN Administration Insulin Aspart 2 - 5 units 11/08/24 17:00 11/13/24 16:55 Insulin Aspart (*Bkc) 100 Units/Ml SUB-Q Not Given TIDWM BRENDEN Protocol Ondansetron HCl 4 mg 11/08/24 12:57 11/12/24 20:12 Ondansetron Inj 4 Mg/2 Ml Vial IV PUSH 4 mg Q4H PRN Administration Nausea Pantoprazole Sodium 40 mg 11/09/24 09:00 11/13/24 09:07 Pantoprazole 40 Mg Tablet PO 40 mg QAM BRENDEN Administration Psyllium Hydrophilic Mucilloid 1 packet 11/12/24 09:00 11/13/24 09:07 Psyllium Powder Packet PO 1 packet DAILY BRENDEN Administration Radiology Results: ITS Impressions Abdomen/Pelvis CT 11/08/24 07:28 IMPRESSION: 1. Again highly worrisome for sigmoid colon malignancy. Recommend colonoscopy. 2. Large periumbilical hernia with fat. Minimal panniculitis at hernia neck. 3. Otherwise no acute abnormality. Labs Labs: Laboratory Results - last 24 hr 11/12/24 11/13/24 11/13/24 21:43 05:39 08:01 WBC 5.5 RBC 4.36 L Hgb 12.5 L Hct 38.3 L MCV 87.8 MCH 28.7 MCHC 32.6 RDW 13.7 Plt Count 281 MPV 10.5 H Sodium 137 Potassium 3.3 L Chloride 106 Carbon Dioxide 27 Anion Gap 4 BUN 19 Creatinine 0.90 Estim Creat Clear Calc 119 Estimated GFR > 60 Glucose 114 H POC Capillary Glucose 117 H 113 H Calcium 8.5 C-Reactive Protein 6.7 H 11/13/24 11/13/24 11:35 15:33 WBC RBC Hgb Hct MCV MCH MCHC RDW Plt Count MPV Sodium Potassium Chloride Carbon Dioxide Anion Gap BUN Creatinine Estim Creat Clear Calc Estimated GFR Glucose POC Capillary Glucose 106 H 137 H Calcium C-Reactive Protein Quality VTE Prophylaxis VTE prophylaxis: mechanical ordered and pharmacologic ordered (Lovenox on hold for bleeding and scope today, resume tomorrow) Hospitalist [facility] Advance Care Plan I have confirmed that the patient's Advanced Care Plan is present, code status is documented, or surrogate decision maker is listed in patient medical record.: Yes Medication Reconciliation I have utilized all available resources to obtain, update and review the patients current medications (includes all prescriptions, OTC, herbals, cannabis, and nutritional supplements).: Yes
[2024-11-13] MEDS: POTASSIUM CHLORIDE 20 MEQ ER TABLET 40 MEQ PO (18:30)
[2024-11-13 23:22] VITALS: BP 130/93; PULSE 89; RESP 18; TEMP 36.5; O2SAT 100
[2024-11-14 03:34] VITALS: PULSE 83; O2SAT 99
[2024-11-14] MEDS: AMPICILLIN SODIUM/SULBACTAM 3 GM in SODIUM CHLORIDE 0.9% IV 100 ML 200 ML IVPB ×2 (04:51→09:11)
[2024-11-14 04:57] VITALS: BP 124/79; PULSE 88; RESP 16; TEMP 36.6; O2SAT 100
[2024-11-14 06:08] LABS: Anion Gap 6 mmol/L (4-12); Blood Urea Nitrogen 14 mg/dL (9-20); CRP 6.9 mg/dL (<1.0); Calcium 8.6 mg/dL (8.4-10.2); Carbon Dioxide 28 mmol/L (22-30); Chloride 106 mmol/L (98-107); Estimated CRCL calculation 113 ml/min; Estimated Glomerular Filt Rate > 60; Glucose 114 mg/dL (65-110); Magnesium 1.9 mg/dL (1.6-2.3); Potassium 3.2 mmol/L (3.4-5.0); Sodium 140 mmol/L (137-145)
[2024-11-14 06:58] LABS: Vitamin B12 622.0 pg/mL (239-931)
[2024-11-14 07:00] LABS: Hematocrit 37.8 % (42.0-52.0); Hemoglobin 12.4 g/dL (14.0-18.0); Mean Corpuscular HGB Conc 32.8 g/dl (32-36); Mean Corpuscular Hemoglobin 28.6 pg (26-34); Mean Corpuscular Volume 87.3 fl (80-100); Platelet Count Result 267 k/mm3 (150-375); Red Blood Count 4.33 M/mm3 (4.6-6.20); White Blood Count 7.1 K/mm3 (4.5-10.0)
--- NOTE | 2024-11-14 08:30 | P.PNIM_ITS ---
Progress Note: A&P Assessment and Plan (1) Abdominal pain: Qualifiers: Abdominal location: lower abdomen, unspecified Qualified Code(s): R10.30 - Lower abdominal pain, unspecified Code(s): R10.9 - Unspecified abdominal pain Status: Acute Assessment and Plan: * CT Abd/Pelvis: * Again highly worrisome for sigmoid colon malignancy. Recommend colonoscopy. * Large periumbilical hernia with fat. Minimal panniculitis at hernia neck. * Otherwise no acute abnormality. * Persistent circumferential wall thickening and luminal narrowing proximal sigmoid. Normal RLQ appendix. Mild gaseous distention. * Denies pain in hernia * Toradol and Tylenol for pain control preferred over narcotics * Tolerating a diet but having some cramping * GI consulted-sigmoidoscopy 11/11 showed diverticulitis and edema * Started on IV antibiotics as noted below and is improving (2) Diverticulitis large intestine: Qualifiers: Diverticulitis bleeding: unspecified bleeding status Diverticulitis complication: unspecified complication status Qualified Code(s): K57.32 - Diverticulitis of large intestine without perforation or abscess without bleedin g Code(s): K57.32 - Diverticulitis of large intestine without perforation or abscess without bleeding Status: Chronic Assessment and Plan: No fevers or chills * GI & Surgery consulted, appreciate recommendations * Continue empiric unasyn (3) Umbilical hernia: Qualifiers: Obstruction and gangrene presence: with obstruction but without gangrene Qualified Code(s): K42.0 - Umbilical hernia with obstruction, without gangrene Code(s): K42.9 - Umbilical hernia without obstruction or gangrene Status: Chronic Assessment and Plan: * Large periumbilical hernia with fat. Minimal panniculitis at hernia neck. * Hernia is soft, easily reducible, no pain on palpation and non erythremic * Surgery consulted, appreciate recommendations (4) Type 2 diabetes mellitus without complications: Qualifiers: Diabetes mellitus intermediate card tender insulin use: without intermediate card tender use Qualified Code(s): E11.9 - Type 2 diabetes mellitus without complications Code(s): E11.9 - Type 2 diabetes mellitus without complications Status: Chronic Assessment and Plan: Blood sugars overall controlled * Patient takes Tresiba Mondays * Accu-Cheks a.c. HS * SSI * Hypoglycemia protocol (5) Bloody stools: Code(s): K92.1 - Melena Status: Acute Assessment and Plan: * Likely from internal hemorrhoids, hemoglobin within normal limits * No report of black or bloody stools overnight (6) Hiccups: Code(s): R06.6 - Hiccough Status: Acute Assessment and Plan: * Scheduled Reglan for 24 hours, now discontinued. Resolved (7) Hypokalemia: Code(s): E87.6 - Hypokalemia Status: Acute Assessment and Plan: Potassium still low. Eating well and getting 40meq potassium the last few days. Give 60meq today Time Spent With Patient Time: 59 minutes Subjective Date/time seen: 11/14/24 08:30 Interval history: Potassium 3.2. Giving 60meq today Review of Systems Review of Systems: 12 systems were reviewed and are negativ e except for as per HPI. Exam Narrative: General - Awake and alert. No acute distress Eyes - PERRLA, EOM intact ENT - No thrush, No erythema Neck - No noticeable or palpable swelling Lymph Nodes - No lymphadenopathy Cardiovascular - RRR no m/r/g, no JVD Lungs: Clear to auscultation, No wheezing, use of accessory muscles, no crackles Skin - Skin warm and dry, no wounds or rashes Abdomen - Normal bowel sounds, abdomen soft and nontender, round Extremities - No edema, cyanosis or clubbing Musculoskeletal - 5/5 strength, normal range of motion, no swollen or erythematous joints. Neurological ? Alert and oriented x 3, CN 2-12 grossly intact. Psych: Normal mood and affect Objective Data Vital Signs Vital Signs: Vital Signs - 24 hr 11/13/24 14:00 11/13/24 23:22 11/14/24 03:34 Temperature 98.6 F 97.7 F Pulse Rate 88 89 83 Respiratory Rate 17 18 Blood Pressure 188/81 H 130/93 H Pulse Oximetry 99 100 99 Oxygen Delivery BiPAP 11/14/24 04:57 Temperature 97.8 F Pulse Rate 88 Respiratory Rate 16 Blood Pressure 124/79 Pulse Oximetry 100 Oxygen Delivery Intake/Output Intake/Output: Intake & Output 11/11/24 11/12/24 11/13/24 11/14/24 23:59 23:59 23:59 23:59 Intake Total 1620 1866 3206 400 Balance 1620 2596 3206 400 Meds/Results Medications: Active Medications Generic Name Dose Route Start Last Admin Trade Name Freq PRN Reason Stop Dose Admin Acetaminophen 650 mg 11/08/24 21:00 11/14/24 04:46 Acetaminophen 325 Mg Tablet PO Not Given Q6H BRENDEN Al Hydrox/Mg Hydrox/Simethicone 30 ml 11/08/24 16:26 Mag Hydrox/Al Hydrox/Simeth 30 Ml Udc PO QID PRN Dyspepsia Dextrose 12.5 gm 11/08/24 16:26 Dextrose 50% 25 Gm/50 Ml Syringe IV PUSH PRN PRN Hypoglycemia Protocol Dicyclomine HCl 10 mg 11/11/24 17:22 11/12/24 20:12 Dicyclomine Hcl 10 Mg Capsule PO 10 mg TID PRN Administration Abdominal Cramping Enoxaparin Sodium 40 mg 11/11/24 09:00 11/13/24 09:07 Enoxaparin 40 Mg/0.4 Ml Syringe SUB-Q 40 mg DAILY BRENDEN Administration Glucagon 1 mg 11/08/24 16:26 Glucagon For Inj 1 Mg Vial IM PRN PRN Hypoglycemia Protocol Glucose 15 gm 11/08/24 16:26 Glucose Oral Gel 15 Gm Of Glucse In 37.5 Gm Tube PO PRN PRN Hypoglycemia Protocol Hydromorphone HCl 0.5 mg 11/08/24 12:57 11/08/24 20:21 Hydromorphone Hcl Inj (*Crx) 1 Mg/Ml Syr IV PUSH 0.5 mg Q4H PRN Administration Pain Rated 7-10 Dextrose 1,000 mls @ 100 mls/hr 11/08/24 16:26 Dextrose 5% 1,000 Ml IVPB PRN PRN Hypoglycemia Protocol Ampicillin Sodium/Sulbactam 100 mls @ 200 mls/hr 11/11/24 16:00 11/14/24 05:21 Sodium 3 gm/ Sodium Chloride IVPB Infused Q6H BRENDEN Infusion Insulin Aspart 2 - 5 units 11/08/24 17:00 11/13/24 16:55 Insulin Aspart (*Bkc) 100 Units/Ml SUB-Q Not Given TIDWM [facility] Protocol Ondansetron HCl 4 mg 11/08/24 12:57 11/12/24 20:12 Ondansetron Inj 4 Mg/2 Ml Vial IV PUSH 4 mg Q4H PRN Administration Nausea Pantoprazole Sodium 40 mg 11/09/24 09:00 11/13/24 09:07 Pantoprazole 40 Mg Tablet PO 40 mg QAM BRENDEN Administration Psyllium Hydrophilic Mucilloid 1 packet 11/12/24 09:00 11/13/24 09:07 Psyllium Powder Packet PO 1 packet DAILY BRENDEN Administration Radiology Results: ITS Impressions Abdomen/Pelvis CT 11/08/24 07:28 IMPRESSION: 1. Again highly worrisome for sigmoid colon malignancy. Recommend colonoscopy. 2. Large periumbilical hernia with fat. Minimal panniculitis at hernia neck. 3. Otherwise no acute abnormality. Labs Labs: Laboratory Results - last 24 hr 11/13/24 11/13/24 11/13/24 11:35 15:33 22:53 WBC RBC Hgb Hct MCV MCH MCHC RDW Plt Count MPV Sodium Potassium Chloride Carbon Dioxide Anion Gap BUN Creatinine Estim Creat Clear Calc Estimated GFR Glucose POC Capillary Glucose 106 H 137 H 151 H Calcium Phosphorus Magnesium C-Reactive Protein Vitamin B12 11/14/24 11/14/24 05:24 06:52 WBC 7.1 RBC 4.33 L Hgb 12.4 L Hct 37.8 L MCV 87.3 MCH 28.6 MCHC 32.8 RDW 13.6 Plt Count 267 MPV 10.1 Sodium 140 Potassium 3.2 L Chloride 106 Carbon Dioxide 28 Anion Gap 6 BUN 14 D Creatinine 0.95 Estim Creat Clear Calc 113 Estimated GFR > 60 Glucose 114 H POC Capillary Glucose Calcium 8.6 Phosphorus 3.8 Magnesium 1.9 C-Reactive Protein 6.9 H Vitamin B12 622.0 Quality VTE Prophylaxis VTE prophylaxis: mechanical ordered and pharmacologic ordered (Lovenox on hold for bleeding and scope today, resume tomorrow) Hospitalist [facility] Advance Care Plan I have confirmed that the patient's Advanced Care Plan is present, code status is documented, or surrogate decision maker is listed in patient medical record.: Yes Medication Reconciliation I have utilized all available resources to obtain, update and review the patients current medications (includes all prescriptions, OTC, herbals, cannabis, and nutritional supplements).: Yes
[2024-11-14] MEDS: PANTOPRAZOLE 40 MG TABLET PO (09:11)
[2024-11-14] MEDS: PSYLLIUM POWDER PACKET 1 PACKET PO (09:11)
[2024-11-14] MEDS: ACETAMINOPHEN 325 MG TABLET 650 MG PO (09:11)
[2024-11-14] MEDS: POTASSIUM CHLORIDE 20 MEQ ER TABLET 40 MEQ PO (09:11)
--- NOTE | 2024-11-14 10:52 | P.DS_ITS ---
DS: Admitting Diagnosis Discharge Date 11/14/2024 Admitting Diagnosis Abdominal pain Diverticulitis GI bleeding DS: Discharge Diagnosis Discharge Diagnosis (1) Acute diverticulitis: Code(s): K57.92 - Diverticulitis of intestine, part unspecified, without perforation or abscess without bleeding Status: Acute (2) GI bleed: Code(s): K92.2 - Gastrointestinal hemorrhage, unspecified Status: Acute DS: Summary Hospital Course Reason for hospitalization: Copied from [facility] 11/08: Acute abdominal pain Narrative: 49-year-old male past medical history of diabetes, diverticulitis, low testosterone, presents the hospital with acute abdominal pain. Patient states the pain started about 3 days ago and has some blood in his stool. Today the pain became severe and woke him up from sleep any and nausea so he presented to the hospital. Patient states that he started having abdominal pain on Sunday followed by about 3 days of diarrhea. He states that he started taking Imodium 2 on night into on Sunday morning since then he has not had any diarrhea. He states that the abdominal pain has been about the same whenever he was having diarrhea and now. He rates it 09/28. Denies vomiting. Patient denies pain and his hernia. Lab work shows hemoglobin of 15.4, BMP within normal limits, glucose 152, AST 60 a ALT 79, alkaline phos 130, UA is cloudy with 6-10 wbc's negative for leukocyte esterase negative for nitrates. CT abdomen pelvis show Again highly worrisome for sigmoid colon malignancy, and Large periumbilical hernia with fat. Minimal panniculitis at hernia neck. GI and surgery consulted. Hernia is soft, easily reducible, nonpainful to palpation and no erythema. Patient had a colonoscopy on 10/17/2024 or is found to have diverticula with no active bleeding, polyp excisions sent to biopsy and internal hemorrhoids. Hospital Course: Reason for hospitalization 49-year-old male past medical history of diabetes, diverticulitis, low testosterone, presents the hospital with acute abdominal pain. CT abd/pelvis 11/08 concerning for sigmoid colon malignancy. GI and surgery consulted. S/P sigmoidoscopy 11/10 with GI, showed diverticula and localized edema, started unasyn. Surgery followed during admission. Abdominal pain 11/08 CT abd/pelvis 1. Again highly worrisome for sigmoid colon malignancy. Recommend colonoscopy. 2. Large periumbilical hernia with fat. Minimal panniculitis at hernia neck. 3. Otherwise no acute abnormality. 11/10 Sigmoidoscopy A few diverticula were present in the sigmoid colon with localized edema, this is causing narrowing in sigmoid lumen but I did not find resistance to advance scope, no drainage, no ulcers. This is located at 30 cm from anal verge. Multiple biopsies were taken. Remaining of colon and rectum normal. Reached ascending colon, no polyps. A few small-size internal hemorrhoids were seen in the rectum. The hemorrhoids were not actively bleeding. * Toradol and Tylenol for pain control preferred over narcotics * Tolerating a diet but having some cramping * GI consulted-sigmoidoscopy 11/11 showed diverticulitis and edema. No evidence of malignancy * Improving with antibiotics Diverticulitis large intestine: No fevers or chills. * GI & Surgery consulted, appreciate recommendations * Continued empiric unasyn. Discharged with augmentin Umbilical hernia: * Large periumbilical hernia with fat. Minimal panniculitis at hernia neck. * Hernia is soft, easily reducible, no pain on palpation and non erythremic * Surgery consulted, appreciate recommendations Type 2 diabetes mellitus without complications: Blood sugars overall controlled. Patient takes Tresiba Mondays * Accu-Andria muhammad HS * SSI * Hypoglycemia protocol Bloody stools: * Likely from internal hemorrhoids, hemoglobin within normal limits * No report of black or bloody stools overnight Hiccups: * Scheduled Reglan for 24 hours, now discontinued. Resolved Potassium 3.2. Replaced. Having loose stools. Following labs. Gave 20meq potassium for 2 more days, and repeat BMP in 1 week Status at Discharge Cognitive/behavioral status at discharge: A&Ox4 Time Spent with Patient Time attestation: Total time spent providing and/or coordinating discharge services:39 minutes Exam Narrative: General - Awake and alert. No acute distress Eyes - PERRLA, EOM intact ENT - No thrush, No erythema Neck - No noticeable or palpable swelling Lymph Nodes - No lymphadenopathy Cardiovascular - RRR no m/r/g, no JVD Lungs: Clear to auscultation, No wheezing, use of accessory muscles, no crackles Skin - Skin warm and dry, no wounds or rashes Abdomen - Normal bowel sounds, abdomen soft and nontender Extremities - No edema, cyanosis or clubbing Musculoskeletal - 5/5 strength, normal range of motion, no swollen or erythematous joints. Neurological ? Alert and oriented x 3, CN 2-12 grossly intact. Psych: Normal mood and affect DS: Data Data Completed and Pending Completed studies during hospitalization: Pending at discharge 11/10/24 14:00 Surgical [PTH] Routine Labs on day of discharge: Labs from last 24 hours 11/14/24 11/14/24 11/14/24 08:06 06:52 05:24 WBC 7.1 RBC 4.33 L Hgb 12.4 L Hct 37.8 L MCV 87.3 MCH 28.6 MCHC 32.8 RDW 13.6 Plt Count 267 MPV 10.1 Sodium 140 Potassium 3.2 L Chloride 106 Carbon Dioxide 28 Anion Gap 6 BUN 14 D Creatinine 0.95 Estim Creat Clear Calc 113 Estimated GFR > 60 Glucose 114 H POC Capillary Glucose 107 H Calcium 8.6 Phosphorus 3.8 Magnesium 1.9 C-Reactive Protein 6.9 H Vitamin B12 622.0 11/13/24 11/13/24 11/13/24 22:53 15:33 11:35 WBC RBC Hgb Hct MCV MCH MCHC RDW Plt Count MPV Sodium Potassium Chloride Carbon Dioxide Anion Gap BUN Creatinine Estim Creat Clear Calc Estimated GFR Glucose POC Capillary Glucose 151 H 137 H 106 H Calcium Phosphorus Magnesium C-Reactive Protein Vitamin B12 Preliminary micro results at discharge 11/08/24 16:01 Blood Culture - Preliminary Blood 11/08/24 15:51 Blood Culture - Preliminary Blood Discharge Plan Discharge Attending physician on discharge: Blanca Pennington Consulting providers: Dylan Hoover; González Wilkinson; Charlie Sheehan; Florencio Weber; Rosalia Gentile; Mukul Blanchard; Law Sr Discharging Clinician: Blanca Pennington Anticipated Discharge Date/Time: 11/14/24 10:58 Patient Disposition: Home Activity: may shower and as tolerated Diet: low fiber Discharge Instructions: Follow up with your PCP next week Follow up with Dr. Flowers in clinic in 2 weeks. Take potassium tabs Sunday and Sunday if you are still having diarrhea. OK to stop if diarrhea resolves. Follow up next week for labs with your PCP to check you electrolytes and blood count Continue low fiber diet at home Patient Instructions: Antibiotic Form Patient Language: Mongolian Stand Alone Forms: General Discharge Information, Work/School Release IP Follow-up/Referrals: Kumar Flowers DO [Physician, General Surgery] - 2 Weeks Referral Note: Call to make appointment Discharge Medications: New amoxicillin-pot clavulanate 875-125 mg tablet 1 tablet PO Q12H Qty: 22 0RF potassium chloride [Klor-Con M20] 20 mEq tablet,ER particles/crystals 20 meq PO DAILY Qty: 2 0RF Rx Instructions: Take 11/15 & 11/16 Continued esomeprazole magnesium [Nexium] 40 mg capsule,delayed release(DR/EC) 40 mg PO DAILY Qty: 30 3RF testosterone cypionate 200 mg/mL oil 200 mg subcut [id number] tirzepatide 10 mg/0.5 mL pen injector 15 mg subcut WEEKLY Rx Instructions: for weeks 8-12 ondansetron 4 mg tablet,disintegrating 4 mg PO Q8H PRN (Reason: nausea and vomiting) Qty: 20 0RF cholecalciferol (vitamin D3) 1,250 mcg (50,000 unit) capsule 1,250 mcg PO WEEKLY acetaminophen 500 mg tablet 1,000 mg PO TID PRN (Reason: carissa) 7 Days Qty: 42 0RF Patient Comments: as needed (DME) OneTouch Verio test strips Strip See Rx Instructions .Route Qty: 100 0RF Rx Instructions: As directed (DME) lancets [OneTouch Delica Plus Lancet] 30 gauge misc See Rx Instructions .Route Qty: 100 3RF Rx Instructions: check glucose bid for diabetes Discontinued ibuprofen 800 mg tablet 800 mg PO TID PRN (Reason: pain) 7 Days Qty: 21 0RF Patient Comments: as needed Other Ambulatory Orders: Basic Metabolic Panel (Routine) Timeframe: 1 Week Location: Determined by Patient Ordered By: Blanca Pennington Complete Blood Count with Diff (Routine) Timeframe: 1 Week Location: Determined by Patient Ordered By: Blanca Pennington Date of admission: 11/11/24 10:37 Primary Care Provider: Fidel Rae Admitting Provider: Mike Cortes Attending physician on admission: Blanca Pennington Condition: Improved Quality VTE Prophylaxis VTE prophylaxis: pharmacologic ordered Hospitalist MIPS Heart Failure (Exclusion) Patient has history of Heart Transplant or Left Ventricular Assistive Device?: No IF YES, STOP HERE Heart Failure (Qualifier) Patient has current or prior documentation of LVEF less than or equal to 40%, or mod/servere depressed LVSF?: No IF NO, STOP HERE
--- NOTE | 2024-11-14 12:12 | PM.PNGS ---
Progress Note: A&P Assessment and Plan (1) Diverticulitis large intestine: Qualifiers: Diverticulitis bleeding: unspecified bleeding status Diverticulitis complication: unspecified complication status Qualified Code(s): K57.32 - Diverticulitis of large intestine without perforation or abscess without bleeding Code(s): K57.32 - Diverticulitis of large intestine without perforation or abscess without bleeding Status: Chronic Assessment and Plan: Much better today. No episodes of abdominal pain. Feels better as well. Okay to discharge from surgical perspective on another 11 days of Augmentin to complete a 2 week course. Also home on low-fiber diet, diabetic consistent. He will see my partner, Dr. Flowers, in 2 weeks for follow-up. I have discussed this with both Dr. Flowers and the patient. Plan home today if okay with hospitalist, others. (2) Umbilical hernia: Qualifiers: Obstruction and gangrene presence: with obstruction but without gangrene Qualified Code(s): K42.0 - Umbilical hernia with obstruction, without gangrene Code(s): K42.9 - Umbilical hernia without obstruction or gangrene Status: Chronic Assessment and Plan: Asymptomatic, reducible (3) BMI 40.0-44.9, adult: Code(s): Z68.41 - Body mass index [BMI] 40.0-44.9, adult Status: Chronic Assessment and Plan: GL P 1 agonist on hold-would continue to hold on discharge as well. (4) Type 2 diabetes mellitus without complications: Qualifiers: Diabetes mellitus terminal operations supervisor insulin use: without terminal operations supervisor use Qualified Code(s): E11.9 - Type 2 diabetes mellitus without complications Code(s): E11.9 - Type 2 diabetes mellitus without complications Status: Chronic Subjective Subjective Date/Time Seen: 11/14/24 12:12 Patient reports: feels better, pain is less (Pain gone), voiding w/o difficulty, diarrhea (Having more formed stools now and much less frequent) and afebrile Review of Systems Review of Systems: All systems reviewed & are unremarkable except as noted in HPI and below (HPI) Exam Const: General: comfortable, alert and awake Orientation/consciousness: patient oriented x3 GI: Inspection: non-distended and visible herniation (Umbilical) GI Palp: Yes Soft to palpation, No Tenderness to palpation present (GI) and Yes Hernia present umbilical 3-10 cm (Reducible, nontender) Objective Data Vital Signs Vital Signs: Vital Signs - 24 hr 11/13/24 14:00 11/13/24 23:22 11/14/24 03:34 Temperature 37.0 C 36.5 C Pulse Rate 88 89 83 Respiratory Rate 17 18 Blood Pressure 188/81 H 130/93 H Pulse Oximetry 99 100 99 Oxygen Delivery BiPAP 11/14/24 04:57 11/14/24 08:00 Temperature 36.6 C Pulse Rate 88 Respiratory Rate 16 Blood Pressure 124/79 Pulse Oximetry 100 Oxygen Delivery Room Air Intake/Output Intake/Output: Intake & Output 11/11/24 11/12/24 11/13/24 11/14/24 23:59 23:59 23:59 23:59 Intake Total 1620 2596 3206 520 Balance 1620 2596 3206 520 Meds/Results Medications: Active Medications Generic Name Dose Route Start Last Admin Trade Name Freq PRN Reason Stop Dose Admin Acetaminophen 650 mg 11/08/24 21:00 11/14/24 09:11 Acetaminophen 325 Mg Tablet PO 650 mg Q6H BRENDEN Administration Al Hydrox/Mg Hydrox/Simethicone 30 ml 11/08/24 16:26 Mag Hydrox/Al Hydrox/Simeth 30 Ml Udc PO QID PRN Dyspepsia Dextrose 12.5 gm 11/08/24 16:26 Dextrose 50% 25 Gm/50 Ml Syringe IV PUSH PRN PRN Hypoglycemia Protocol Dicyclomine HCl 10 mg 11/11/24 17:22 11/12/24 20:12 Dicyclomine Hcl 10 Mg Capsule PO 10 mg TID PRN Administration Abdominal Cramping Enoxaparin Sodium 40 mg 11/11/24 09:00 11/14/24 09:19 Enoxaparin 40 Mg/0.4 Ml Syringe SUB-Q Not Given DAILY BRENDEN Glucagon 1 mg 11/08/24 16:26 Glucagon For Inj 1 Mg Vial IM PRN PRN Hypoglycemia Protocol Glucose 15 gm 11/08/24 16:26 Glucose Oral Gel 15 Gm Of Glucse In 37.5 Gm Tube PO PRN PRN Hypoglycemia Protocol Hydromorphone HCl 0.5 mg 11/08/24 12:57 11/08/24 20:21 Hydromorphone Hcl Inj (*Crx) 1 Mg/Ml Syr IV PUSH 0.5 mg Q4H PRN Administration Pain Rated 7-10 Dextrose 1,000 mls @ 100 mls/hr 11/08/24 16:26 Dextrose 5% 1,000 Ml IVPB PRN PRN Hypoglycemia Protocol Ampicillin Sodium/Sulbactam 100 mls @ 200 mls/hr 11/11/24 16:00 11/14/24 09:11 Sodium 3 gm/ Sodium Chloride IVPB 200 mls/hr Q6H BRENDEN Administration Insulin Aspart 2 - 5 units 11/08/24 17:00 11/14/24 12:02 Insulin Aspart (*Bkc) 100 Units/Ml SUB-Q Not Given TIDWM BRENDEN Protocol Ondansetron HCl 4 mg 11/08/24 12:57 11/12/24 20:12 Ondansetron Inj 4 Mg/2 Ml Vial IV PUSH 4 mg Q4H PRN Administration Nausea Pantoprazole Sodium 40 mg 11/09/24 09:00 11/14/24 09:11 Pantoprazole 40 Mg Tablet PO 40 mg QAM BRENDEN Administration Psyllium Hydrophilic Mucilloid 1 packet 11/12/24 09:00 11/14/24 09:11 Psyllium Powder Packet PO 1 packet DAILY BRENDEN Administration Radiology Results: ITS Impressions Abdomen/Pelvis CT 11/08/24 07:28 IMPRESSION: 1. Again highly worrisome for sigmoid colon malignancy. Recommend colonoscopy. 2. Large periumbilical hernia with fat. Minimal panniculitis at hernia neck. 3. Otherwise no acute abnormality. Labs Labs: Laboratory Results - last 24 hr 11/13/24 11/13/24 11/14/24 15:33 22:53 05:24 WBC RBC Hgb Hct MCV MCH MCHC RDW Plt Count MPV Sodium 140 Potassium 3.2 L Chloride 106 Carbon Dioxide 28 Anion Gap 6 BUN 14 D Creatinine 0.95 Estim Creat Clear Calc 113 Estimated GFR > 60 Glucose 114 H POC Capillary Glucose 137 H 151 H Calcium 8.6 Phosphorus 3.8 Magnesium 1.9 C-Reactive Protein 6.9 H Vitamin B12 622.0 11/14/24 11/14/24 11/14/24 06:52 08:06 11:30 WBC 7.1 RBC 4.33 L Hgb 12.4 L Hct 37.8 L MCV 87.3 MCH 28.6 MCHC 32.8 RDW 13.6 Plt Count 267 MPV 10.1 Sodium Potassium Chloride Carbon Dioxide Anion Gap BUN Creatinine Estim Creat Clear Calc Estimated GFR Glucose POC Capillary Glucose 107 H 114 H Calcium Phosphorus Magnesium C-Reactive Protein Vitamin B12
[2024-11-14] MEDS: POTASSIUM CHLORIDE 20 MEQ ER TABLET PO (12:37)
== END 2024-11-14 14:00 | disposition home or self-care (01) | DRG 394 ==
LOC: ANHED 07:22 → ANH3MED 13:26
PROVIDERS: Internal Medicine Gastroenterology; Nurse Practitioner Gerontology; Surgery; Admitting Provider Internal Medicine; Emergency Provider Emergency Medicine; PCP Family Medicine; Visit Provider Nurse Practitioner Acute Care
PROC: 0DJD8ZZ Inspection of Lower Intestinal Tract, Via Natural or Artificial Opening Endoscopic (ICD-10-PCS; CPT 45330; principal; 2024-11-10 15:00)
DX: K42.0 Umbilical hernia with obstruction, without gangrene (principal); K57.32 Diverticulitis of large intestine without perforation or abscess without bleeding; K92.1 Melena; K64.8 Other hemorrhoids; Z68.41 Body mass index [BMI] 40.0-44.9, adult; E29.1 Testicular hypofunction; E11.9 Type 2 diabetes mellitus without complications; E66.01 Morbid (severe) obesity due to excess calories; E55.9 Vitamin D deficiency, unspecified; G47.33 Obstructive sleep apnea (adult) (pediatric); R06.6 Hiccough
CPT/HCPCS: 36415; 74177; 80048; 80053; 81001; 82607; 82948; 83605; 83690; 83735; 84100; 85025; 85027; 86140; 87040; 87086; 88305; 96360; 96361; 96374; 96375; 96376; 99285; A9270; G0378; J0295; J1171; J1650; J1885; J2003; J2270; J2405; J2704; J2765; J7120; Q9967

== ENCOUNTER 2024-12-22 07:50 | Outpatient (CLI) | payer OTHER, SELFPAY ==
--- OUTSIDE RECORDS SUMMARY | 2024-12-22 08:02 | XMS_ITS | Clinical Summary ---
Author Organization [facility] Address [address] [place] [address] Care Team Providers Care Collections Manager Name Role Phone Unavailable Primary Care Provider Unavailabl e Source Comments [facility],non-owned Affiliates and Associated Physician Practices is amultiple site organization consisting of ambulatory clinics and hospital sitesin [place], [place], [place] and [place]. This disclosure is being madepursuant to the Care Everywhere program and may not contain all information available regarding this patient. Last updated 17.[facility] Medications * Be aware that medications may [...] CAGLE Subscriber ID:Not on file (Home) Address: [address] [place] [id number] Payer ID:Not on file Group ID:Not on file Type:Self Pay Address: [place], [place]
--- OUTSIDE RECORDS SUMMARY | 2024-12-22 08:02 | XMS_ITS | Clinical Summary ---
Author Organization [facility] Address [address] [place] [id number] Care Team Providers Care Corner Brace Block Machine Operator Name Role Phone Fidel Rae MD Primary Care Provider [phone] Allergies No known active allergies Medications ondansetron [...] of 2) 09/09/2023 COVID-19 Vaccine (1 - 2024-2 6 season) 2024 Influenza Adult (#1) 2024 Hepatitis A Vaccines Aged Out No long er eligible based on patient's age to complete this topic Meningococcal B Vaccine Aged Out No l onger eligible based on patient's age to complete this topic Meningococcal Vaccine Aged Out No kary calvin eligible based on patient's age to complete this topic RSV Immunizations Under 20 Months Aged Out No longer eligible based on patient's age to complete this topic Insurance Care Teams Corner Brace Block Machine Operator Relationship Specialty Start Date End Date Fidel Rae MD [address] [place] [address] PCP - General FAMILY PRACTICE 09/30/18
--- NOTE | 2024-12-22 08:50 | ECG_ITS ---
Test Date: 2024-12-22 09:14:32 Measurements Intervals [place] Rate: 87 P: 63 LA: 134 QRS: 30 QRSD: 92 T: 36 QT: 361 QTc: 434 Interpretive Statements SINUS RHYTHM WARNING: DATA QUALITY MAY AFFECT INTERPRETATION No previous ECG available for comparison Electronically Signed On 12-22-2024 09:43:06 GRINDING MACHINE TENDER by Kris Dockery M.D.
== END 2024-12-22 07:51 | disposition home or self-care (01) ==
PROVIDERS: PCP Surgery; Visit Provider Surgery
DX: K57.92 Diverticulitis of intestine, part unspecified, without perforation or abscess without bleeding (principal); E11.9 Type 2 diabetes mellitus without complications; Z01.818 Encounter for other preprocedural examination
CPT/HCPCS: 36415; 86850; 86900; 86901; 93005

== ENCOUNTER 2024-12-31 14:14 | Inpatient (IN) | payer OTHER, SELFPAY ==
--- NOTE | 2024-12-22 07:58 | PC.NURSE ---
[facility] has started construction of its new state of the art ER which will open Spring 2026. With this, we anticipate parking may be a challenge for some our surgical patients and families. Parking spaces are limited but are available for all Surgical, obstetrics, and ER patients sharing this lot. If you arrive and find you are having a hard time finding a parking space, please note that we understand the challenges, please drive around the hospital and park near Hospital Entrance 1. When you enter this entrance, you can ask a volunteer to direct or take you back to the surgical waiting area to check in. We appreciate everyone?s understanding of these expected challenges while we build for your future. Report to the Outpatient Waiting Room, entrance under the green pavilion located off [address], at time ___6am____ on date _12/31/24 . Planned Procedure Time: ___7:30 am .? Time changes happen often and if your time is changed the preop area will call you the afternoon before. - You and your visitor will be asked to self-screen and do not enter if you have any COVID symptoms. Please call surgeon if you need to reschedule. - A mask is optional within the hospital at this time. Patients may have clear liquids (water, carbonated beverages, clear teas, apple juice) until 3 hours prior to surgery( 4:30 am) with a maximum of 20 ounces. - No food from midnight until time of surgery and no smoking, or chewing tobacco (or any form of nicotine). No chewing gum, candy or mints. - Take only the following medications with a SIP of water on the morning of surgery: ___NONE DO NOT STOP ANY OF YOUR OTHER PRESCRIPTION MEDICATIONS PRIOR TO SURGERY EXCEPT THE FOLLOWING Hold all vitamins and supplements for 3 days per anesthesiologist.LAST DOSE 12/27/24 Medications to discontinue per physician NONE Date to take last dose HIBICLENS SHOWER DAY BEFORE SURGERY AND MORNING OF SURGERY ENSURE BUNDLE PACK PER DR EVANS BOWEL PREP PER DR EVANS Please no make-up, nail british virgin islander, hairspray, perfume, deodorant, or body powder the day of surgery.? No jewelry (including any body piercings) or valuables the day of surgery, leave them at home.? Please take a shower or bath the night before, or the morning of, surgery with an antibacterial soap.? Wear comfortable, loose fitting clothing.? Children are encouraged to wear pajamas. - Jewelry must be removed prior to entering the operating room.? Rings and piercings that are not removed may be cut off. - The hospital will not accept responsibility for valuables.? - Please leave all valuables, including medications, at home the day of surgery. If you are going home after surgery, a licensed otr flatbed company truck driver must drive you home.? - NO public transportation without another adult if you receive anesthesia. - We recommend that an adult stay with you for 24 hours following discharge. - We also recommend that you do not drive, make important decision, drink alcoholic beverages, or take any drugs that were not prescribed by your health care provider for at least 24 hours after your discharge time. For Pediatric surgeries, we recommend two adults accompany the child home. Follow any additional instructions given to you from your surgeon. VERBAL AND WRITTEN instructions given to __PATIENT and asked if any additional questions and then verbalized understanding. Patient advised to call surgeon office or pre surgery nurse liaison [phone] if any additional questions.
[2024-12-22 08:00] VITALS: BMI 40.1
[2024-12-22 08:50] VITALS: BP 139/89; PULSE 89; RESP 18; TEMP 37.6; O2SAT 97
[2024-12-31] VITALS (14 sets, daily range): BP systolic 109–147; BP diastolic 63–85; PULSE 80–102; RESP 12–22; TEMP 35.6–37; O2SAT 92–99; BMI 39.3
[2024-12-31] MEDS: LACTATED RINGERS 1,000 ML 30 ML IV CONT ×2 (06:20→12:58)
[2024-12-31] MEDS: ACETAMINOPHEN 500 MG TABLET 1000 MG PO ×2 (06:37→16:59)
[2024-12-31] MEDS: KETOROLAC 15 MG/ML VIAL (*BKC) IV PUSH (06:37)
--- NOTE | 2024-12-31 07:12 | WPDHPUPDATE1 ---
History and Physical Update Update Date/Time: 12/31/24 07:12 History and Physical has been reviewed, including an updated exam of the patient. There are NO changes in the patient's condition. Risks, benefits, and alternatives have been discussed and questions answered. Patient agrees to proceed with procedure.
--- NOTE | 2024-12-31 07:25 | WPDANESEPPF ---
Anes - Initial Pre Proc Eval Procedure: Operation Date: 12/31/24 07:30 Proposed Procedures p Laparoscopic Sigmoid Colectomy, Davinci Assisted, - Kumar Flowers DO s Possible Open Umbilical Hernia Repair - Kumar Flowers DO Date/Time: 12/31/24 07:25 Surgeon: Kumar Flowers DO Pre Op Diagnosis: sigmoid diverticulitis Patient Data Age: 49 Gender: M Height: 1.83 m Weight: 131.5 kg Last Vital Signs Temp 98.2 F 12/31/24 06:10 Pulse 100 12/31/24 06:10 Resp 16 12/31/24 06:10 BP 147/85 H 12/31/24 06:10 Pulse Ox 99 12/31/24 06:10 O2 Del Method Room Air 12/31/24 06:10 Allergies Allergy/AdvReac Type Severity Reaction Status Date / Time No Known Allergies Allergy Verified 12/31/24 06:15 Home Medications ?Medication ?Instructions ?Recorded ?Confirmed ?Type esomeprazole magnesium 40 mg 40 mg PO DAILY #30 caps 12/12/21 12/31/24 Rx capsule,delayed release (Nexium) blood sugar diagnostic (OneTouch #100 ea 08/30/23 12/08/24 Rx Verio test strips) lancets 30 gauge (OneTouch Delica #100 ea 01/02/24 12/08/24 Rx Plus Lancet) testosterone cypionate 200 mg/mL 200 mg subcut [id number] 10/01/24 12/22/24 History intramuscular oil tirzepatide 10 mg/0.5 mL 15 mg subcut WEEKLY 10/01/24 12/22/24 History subcutaneous pen injector ondansetron 4 mg disintegrating 4 mg PO Q8H PRN nausea and 11/14/24 12/22/24 Rx tablet vomiting #20 tabs ciprofloxacin HCl 500 mg tablet 500 mg PO .COMPLEX #1 tablet 12/05/24 12/31/24 Rx metronidazole 500 mg tablet 500 mg PO .COMPLEX #3 tabs 12/05/24 12/31/24 Rx cholecalciferol (vitamin D3) 50 50 mcg PO DAILY 12/22/24 12/31/24 History mcg (2,000 unit) capsule geriatric multivitamin-min 1 tablet PO DAILY 12/22/24 12/31/24 History Laboratory Tests 12/31/24 06:29 POC Capillary Glucose 184 H mg/dl (65-105) Patient hx anesthesia problems: none Family hx anesthesia problems: none Results Review: All pre-operative results and documents have been reviewed as part of the pre-operative evaluation. [facility] Past Medical History Medical History (Updated 12/05/24 @ 09:22 by [facility]) Stricture of sigmoid colon Type 2 diabetes mellitus without complications HERON (obstructive sleep apnea) Decreased libido BMI 40.0-44.9, adult Acute bronchitis due to other specified organisms Acute pain of left foot Acute pain of right shoulder Acute sinusitis, unspecified Chronic fatigue Dietary counseling and surveillance (05/08/18) Diverticulitis Diverticulitis of large intestine without perforation or abscess Elevated glucose Infection of right eye Left lower quadrant pain Low serum testosterone Lung nodule Right hip pain Screening for lipid disorders Screening for prostate cancer Vitamin D deficiency Constipation Obese Adenomatous colon polyp Diverticulitis large intestine Surgical History Surgical History Hx of colonoscopy Family History Family History Mother Hypertension Father Heart disease Sibling No problems noted. Other Cerebrovascular accident Family history of coronary artery disease Social History Social History Smoking status: Never smoker Second hand tobacco smoke exposure: Yes Alcohol intake: current Drinks per week: 24 Alcohol use details: BEER Substance use: never Substance use type: does not use Do You Feel Safe in your Home?: Yes Lack of Transportation: No Lack of Food: Never True Current Housing: I Have Housing Concerned About Future Housing: No Difficulty Paying Gas/Electric Bills: No Difficulty Paying for Meds: No Currently Unemployed: No Education: High School Diploma/GED Difficulty w/ Childcare or Family Care: No Living arrangements: with family Occupation/Education: occupation 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 Gender identity (if verbalized by the patient): Male Spiritual care concerns: No Anes - Eval Final PreProcedure Day of Procedure 12/31/24 07:25 Patient weight: morbidly obese Heart: regular rate and rhythm Lungs: clear to auscultation Airway: Mallampati scale class III Neurological: alert and oriented Last oral intake: >/= 8 hours ASA classification: III Emergent: no Anesthetic plan: proceed Anesthesia type and monitoring: general ETT (glide scope intubation) and standard monitoring Results Review: All pre-operative results and documents have been reviewed as part of the pre-operative evaluation. Informed Consent: The patient's anesthetic plan and its attendant risks and benefits were discussed with the patient/family/POA. Questions were solicited and answers provided to the satisfaction of the patient/family/POA.
[2024-12-31] MEDS: ceFAZolin 3 GM/D5W 100 ML 100 ML IVPB (07:34)
[2024-12-31] MEDS: BUPIVACAINE/EPINEPHRINE 0.5% 50 ML VIAL 60 ML INFILTRATE (08:31)
[2024-12-31] MEDS: INDOCYANINE GREEN 25 MG VIAL WITH DILUENT 3.75 MG IV PUSH (11:00)
--- NOTE | 2024-12-31 12:27 | S_PTH ---
PATIENT: Braden Cagle LOC: [id number] U#:[id number] AGE/SX: 49/M ROOM: 325 RE12/31/[address]: Kumar Flowers DO : 1975 BED: 02 DIS: 01/02/2025 SPEC #: [id number] RECD: 12/31/24 13:29 STATUS: PRACHI REKenia #: [id number] TANMAY: 12/31/24 12:[address]: Kumar Flowers DEPT: [facility] Surgical RECD BY: Maggie Cline ENTERED: 12/31/24 13:29 SP TYPE: Surgical OTHR DR: Fidel Rae MD Tissues: A - Colon Segment NonTumor B - Hernia Sac Procedures: Gross and Microscopic Level 2 Hematoxylin and Eosin Stain Gross and Microscopic Level 5
--- NOTE | 2024-12-31 12:56 | P.OP_ITS ---
Procedure Note - Detailed Date of Procedure 12/31/24 Pre-op Diagnosis sigmoid diverticulitis, umbilical hernia Post-op Diagnosis Same (3 cm umbilical hernia, sigmoid diverticulitis) Procedure Performed 1. Laparoscopic sigmoid colectomy with colorectal anastomosis, da Annabelle assisted 2. Open 3 cm incarcerated umbilical hernia repair Surgeon Kumar Flowers DO Duplicator Punch Set Up Operator Wayne Weinstein DO Anesthesia General and Local (0.5% bupivacaine with epinephrine) Indications This is a 49-year-old man who presents with multiple prior episodes of sigmoid diverticulitis. He had been to the emergency department in July and was found to have sigmoid diverticulitis with a possible mass in the colon. He subsequently underwent colonoscopy as an outpatient after recovery from that episode and there were no signs of malignancy. He then was hospitalized in October with another episode of diverticulitis. He had another sigmoidoscopy at that time and again no mass was visualized. He then followed up in the office to discuss further treatment. His prior CTs had shown evidence of a large umbilical hernia with some mild surrounding inflammatory stranding. Discussions were made with the patient about treatment options and decision was made to proceed with robotic assisted laparoscopic sigmoid colectomy, with possible umbilical hernia repair. Findings Robotic assisted laparoscopic sigmoid colectomy was performed. The patient had a large amount of inflammatory scarring along the involved portion of the sigmoid colon. This portion of the sigmoid colon was adherent to the lower abdominal wall just to the left of midline. There was also a loop of small bowel adherent to the medial side of the sigmoid colon. There did not appear to be any signs of fistula either to that segment of small bowel or to the bladder. But the descending colon and rectum appeared healthy. The sigmoid colectomy was performed and a side-to-end anastomosis was performed using a 28 mm EEA stapler. Indocyanine green was utilized to assess adequate perfusion to the resection margins prior to performing the anastomosis. A leak check was then performed as well and there were no signs of leak at the anastomosis. The sigmoid colon was sent to the lab for pathology. At the conclusion of the procedure the location of the umbilical hernia was used as the extraction site for the sigmoid colon. The umbilical hernia was then repaired using 0 PDS [id number] sutures in a vertical fashion. There was omentum incarcerated within the umbilical hernia, and the hernia measured 3 cm. This was excised along with the hernia sac and sent to the lab for pathology. Description of Procedure Procedure as well as risks, benefits, and alternatives were discussed with the patient. Written consent was obtained and placed in chart prior to procedure. Patient was brought back to surgical suite. He was placed supine on operating table. Time-out was done to confirm patient and procedure. He was then intu bated by the anesthesia department. He was then repositioned into a modified lithotomy position. His rectal area was prepped and draped in sterile fashion using Betadine prep and his abdomen was prepped and draped in sterile fashion using chlorhexidine prep. A 5 cm curvilinear incision was made just superior to the umbilicus using a 15 blade scalpel. Electrocautery was used for hemostasis and for dissection through the subcutaneous tissue. The hernia sac was encountered and carefully dissected free from the surrounding subcutaneous attachments using electrocautery. The hernia sac was dissected free all the way down to the level of the fascia. The umbilical skin was carefully freed from the hernia sac as well. The hernia sac was then opened and the omentum was identified within the hernia. I attempted to reduce the omentum however it was still heavily scarred in to the hernia sac. The decision was then made to transect the hernia sac and omentum using electrocautery and resect this and sent for pathology. The fascia was cleared around the hernia defect and then the small Vernon wound protector was placed. This was then twisted and clamped shut. A 5 mm incision was made in the left upper quadrant in the subcostal region and a 5 mm Optiview trocar was advanced through the abdominal layers under direct visualization. Once inside the abdominal cavity, a camera was inserted and his abdomen was inspected laparoscopically. No immediate abnormalities were identified. The patient was placed in steep Trendelenburg position. A 12 mm incision was made in the right lower quadrant about 2 cm medial to the ASIS, and a 12 mm trocar was inserted under direct visualization. Three more 8 mm incisions were placed and 8 mm ports were placed under direct visualization on an oblique angle going up towards the left upper quadrant, the last being at the location of the 5 mm port. Another 5 mm incision was made and a 5 mm port was placed under direct visualization in the right upper quadrant for the assist port. 0.5% bupivacaine with epinephrine was infiltrated locally around each port site. A careful thorough examination of the abdominal cavity was performed. The omentum was reflected cephalad over the stomach. The cecum and small bowel were reflected out of the pelvis. The robotic arms were then brought up to the patient's bedside in secured to the ports. The robotic camera and instruments were then inserted and then I moved over to the robotic console and took control of the camera and instruments. After carefully inspecting the abdominal cavity, I began taking down some of the adhesions of the sigmoid colon up to the left lower abdominal wall using scissors with electrocautery. The adhesions were freed up all the way down to the area where I could visualize the mesocolon and the lateral peritoneal attachments. I then reflected the colon laterally and identified another area of adhesions involving a loop of distal ileum. These adhesions were carefully taken down using scissors without cautery. This freed up the loop of small bowel so that it could be reflected out of the pelvis. I then lifted the rectosigmoid junction anteriorly to tent up the inferior mesenteric artery pedicle. A medial to lateral dissection was performed using scissors with electrocautery. I scored the peritoneum along the undersurface of the superior hemorrhoidal vessel at the sacral promontory and entered into the avascular space. I carefully dissected within the space to dissect the hypogastric nerves posteriorly and dissect laterally until the left ureter was identified. The ureter was identified and protected in its position throughout its course. I continued the dissection proximally on the inferior mesenteric artery using scissors with electrocautery. I carefully encircled the inferior mesenteric artery about 2 cm distal to the origin. I then ensured that the left ureter was still in its proper position and then ligated and divided the inferior mesenteric artery using the vessel sealer. I then continued the medial to lateral dissection until I reached the lateral peritoneal reflection the sigmoid and descending colon. There appeared to be adequate mobilization of the descending colon and I did not require mobilization of the splenic flexure. I then retracted the sigmoid and descending colon medially and took down the lateral peritoneal attachments using scissors with electrocautery. While doing this I entered into the previous plane of dissection from the medial to lateral approach. I ensured that the left ureter was protected in its position throughout its course. I then continued the distal dissection and took down the lateral attachments to the rectosigmoid junction and identified a point on the upper rectum that appeared healthy and viable and a good position for the distal transection. The mesorectum was taken down perpendicular to this point using the vessel sealer. The 45 mm blue load robotic stapler was then advanced across the rectum and then this was clamped and fired. This then took a 2nd firing to come completely across the rectum. The rectal stump was inspected and appeared healthy and viable. I then identified the descending colon at a point that appeared to come down in the pelvis without any tension. This was chosen as the proximal transection point. The mesocolon was taken down up to this point using the vessel sealer. 3 cc of ICG was then given intravenously and vascular perfusion to the bowel was assessed using near infrared imaging. The site for the proximal transection was clearly visible with adequate perfusion as well as the rectal stump. A colotomy was made on the anterior portion of the sigmoid colon and then the 28 mm EEA anvil was advanced through the colotomy and pierced through the side wall of the descending colon. The anvil was then secured in place using a 3 0 V lock pursestring suture. A 45 mm blue load robotic stapler was then advanced across the distal descending colon just beyond the anvil and this was clamped and fired. This again took a 2nd firing of the 45 mm blue load stapler. The specimen was then placed in the right lower quadrant out of the way to be extracted at the end of the procedure. The anvil was then brought down into the pelvis and appeared to be coming down into the pelvis without any tension. The EEA sizers were then advanced up to the rectal stump followed by the 28 mm EEA stapler. The pin of the stapler was opened just posterior to the staple line along the left corner of the staple line. The anvil was then attached to the stapler and the stapler was carefully closed. I ensured that the descending colon was not twisted along its path and no other tissue was closed within the stapler. Stapler was then fired to create our EEA anastomosis. Stapler and anvil were carefully removed. I then inspected the staple line and it appeared circumferential and the anastomotic rings appeared circumferential on the stapler. The lateral edges of the anterior portion of the staple line were reinforced using 3-0 Vicryl seromuscular imbricating sutures. The descending colon was then pinched closed with a laparoscopic grasper. The rigid proctoscope was then inserted into the rectum and the pelvis was filled with sterile saline. Air was insufflated through the rigid proctoscope to dilate the anastomosis. No air bubbles were seen leaking from the anastomosis. The rigid proctoscope was then removed. One final inspection was then made around the abdominal cavity and no other abnormalities were iden tified. A laparoscopic clamp was then placed on the specimen for extraction. The camera and instruments were removed and the robotic arms were disengaged from the ports. The patient was then flattened out in bed. One final inspection was made around the abdominal cavity and no other abnormalities were noted. The 12 mm port was removed and the fascia was then closed using an 0 Vicryl suture with a Curtis-Inocente cone. The fascia at the umbilical hernia was extended open cephalad about 1 cm using electrocautery and also caudad about 1 cm using electrocautery. The specimen was then carefully delivered to the wound protector and it was then carefully delivered through the wound protector and removed completely. The abdomen was then carefully inspected through the wound protector and no other abnormalities were identified. The wound protector was removed. The umbilical hernia was repaired using 0 PDS [id number] sutures. The repair was inspected and appeared secure. Jennie's fascia was reapproximated using 3-0 Vicryl simple interrupted sutures. The remaining ports were then removed. The skin of the incisions was then reapproximated using 4-0 Monocryl running subcuticular suture. Exofin glue was then applied on top. The patient was then awakened from anesthesia, extubated, and transferred to recovery. Estimated Blood Loss 100 Pathology Yes (Sigmoid colon, umbilical hernia sac) Complications No immediate complications Condition Stable Disposition Floor [facility] Billing Surgery - Charge Forward: Surgery Billing
--- NOTE | 2024-12-31 13:11 | SUR.PHASEI ---
Dr. Banks aware of blood glucose of 229, no further treatment at this time
[2024-12-31] MEDS: fentaNYL CITRATE INJ (*CRX) 100 MCG/2 ML VIAL 25 MCG IV PUSH ×3 (13:19→14:00)
--- NOTE | 2024-12-31 14:26 | ADMGEN ---
This patient, Braden Cagle, was admitted to [facility] Patient/family oriented to hospital policies and general routines including ID bracelet, bed and alarms, visiting hours, pain management, procedures, bathroom and other care routines, personal items, smoking policy, room service/diet, and visiting hours. Information on how to activate the Rapid Response Team has been discussed. Patient/Family are encouraged to report perceived risks to care and to ask questions if they do not understand what they are told or what they should do.
[2024-12-31] MEDS: LACTATED RINGERS 1,000 ML 100 ML IV CONT (15:47)
[2024-12-31] MEDS: oxyCODONE HCL (*CRX) 5 MG TAB IR 10 MG PO ×2 (16:46→20:09)
[2024-12-31] MEDS: INSULIN ASPART (*BKC) 100 UNITS/ML SUB-Q (18:55)
[2024-12-31] MEDS: ONDANSETRON INJ 4 MG/2 ML VIAL IV PUSH (20:09)
[2025-01-01] MEDS: oxyCODONE HCL (*CRX) 5 MG TAB IR 10 MG PO ×3 (00:06→16:24)
[2025-01-01] MEDS: ACETAMINOPHEN 500 MG TABLET 1000 MG PO ×4 (00:06→17:18)
[2025-01-01] MEDS: LACTATED RINGERS 1,000 ML 100 ML IV CONT ×3 (02:14→22:55)
[2025-01-01] MEDS: HYDROmorphone HCL INJ (*CRX) 1 MG/ML SYR IV PUSH ×2 (02:18→12:49)
[2025-01-01 03:59] VITALS: BP 106/64; PULSE 98; RESP 20; TEMP 36.8; O2SAT 97
[2025-01-01 05:34] LABS: Hematocrit 39.5 % (42.0-52.0); Hemoglobin 12.9 g/dL (14.0-18.0); Mean Corpuscular HGB Conc 32.7 g/dl (32-36); Mean Corpuscular Hemoglobin 28.8 pg (26-34); Mean Corpuscular Volume 88.2 fl (80-100); Platelet Count Result 266 k/mm3 (150-375); Red Blood Count 4.48 M/mm3 (4.6-6.20); White Blood Count 13.1 K/mm3 (4.5-10.0)
[2025-01-01 05:46] LABS: Anion Gap 9 mmol/L (4-12); Blood Urea Nitrogen 11 mg/dL (9-20); Calcium 8.9 mg/dL (8.4-10.2); Carbon Dioxide 24 mmol/L (22-30); Chloride 99 mmol/L (98-107); Estimated CRCL calculation 117 ml/min; Estimated Glomerular Filt Rate > 60; Glucose 185 mg/dL (65-110); Potassium 4.0 mmol/L (3.4-5.0); Sodium 132 mmol/L (137-145)
[2025-01-01] MEDS: HYDROmorphone HCL INJ (*CRX) 1 MG/ML SYR 0.5 MG IV PUSH (05:46)
[2025-01-01 07:59] VITALS: BP 122/69; PULSE 93; RESP 18; TEMP 36.4; O2SAT 97
[2025-01-01] MEDS: INSULIN ASPART (*BKC) 100 UNITS/ML SUB-Q (08:32)
[2025-01-01] MEDS: PANTOPRAZOLE 40 MG TABLET PO (08:32)
[2025-01-01] MEDS: ENOXAPARIN 40 MG/0.4 ML SYRINGE SUB-Q (08:33)
--- NOTE | 2025-01-01 08:52 | PM.PNGS ---
Progress Note: A&P Assessment and Plan (1) Stricture of sigmoid colon: Code(s): K56.699 - Other intestinal obstruction unspecified as to partial versus complete obstruction Status: Acute Assessment and Plan: POD #1 s/p RAL sigmoidectomy. Patient doing well overall. He has not had much to eat or drink over interval. Awaiting ROBF. Incisions CDI. Continue PRN pain control. Encourage ambulation. Will DC IVF once tolerating PO intake. Will continue with liquid diet today. Once patient tolerates diet, will ADAT. Encourage IS use. Continue DVT ppx with lovenox. Please see attending attestation for further plan and updates (2) Umbilical hernia: Qualifiers: Obstruction and gangrene presence: with obstruction but without gangrene Qualified Code(s): K42.0 - Umbilical hernia with obstruction, without gangrene Code(s): K42.9 - Umbilical hernia without obstruction or gangrene Status: Chronic Assessment and Plan: repaired primarily 12/31 (3) Type 2 diabetes mellitus without complications: Code(s): E11.9 - Type 2 diabetes mellitus without complications Status: Chronic Assessment and Plan: continue SSI (4) Hx of diverticulitis of colon: Code(s): Z87.19 - Personal history of other diseases of the digestive system Status: Acute (5) BMI 40.0-44.9, adult: Code(s): Z68.41 - Body mass index [BMI] 40.0-44.9, adult Status: Chronic Subjective Subjective Date/Time Seen: 01/01/25 08:52 Interval history: NAEON. POD #1 s/p RAL sigmoidectomy. Patient doing well overall. He has not ambulated much as he states it is uncomfortable. Has not had much PO intake. Incisions CDI. Abdomen soft and aTTP. [place] out, awaiting urination after removal. Awaiting ROBF. Review of Systems Review of Systems: All systems reviewed & are unremarkable except as noted in HPI and below (HPI) Exam Const: General: cooperative, healthy appearing, no acute distress, alert and awake HENMT: Head: normocephalic and atraumatic Eyes: General: appearance normal, both eyes and all related structures EOM: EOMs intact bilaterally Neck: Neck: normal visual inspection and no JVD Resp: Other: symmetric expansion, no IWOB, on RA Cardio: Rate: regular rate Rhythm: regular rhythm GI: Other: soft, aTTP, ND, nonperitoneal, abdominal binder in place, incisions CDI Skin: General skin exam: normal color and no rashes or lesions noted Extrem: Other: moves all, normal inspection Psych: Appearance: grossly normal Mental Status: mental status grossly normal Speech and movement: Normal speech and movement present Affect: normal affect Attitude: cooperative Thought process: Normal thought process present Objective Data Vital Signs Vital Signs: Vital Signs - 24 hr 12/31/24 12:58 12/31/24 13:10 12/31/24 13:25 Temperature 97.3 F L Pulse Rate 89 87 80 Respiratory Rate 18 22 H 20 Blood Pressure 129/84 133/80 133/77 Pulse Oximetry 98 97 97 Oxygen Delivery Simple Face Mask Simple Face Mask Simple Face Mask Oxygen Flow Rate 8 8 8 12/31/24 13:40 12/31/24 13:55 12/31/24 14:06 Temperature 98.5 F Pulse Rate 82 89 88 Respiratory Rate 19 12 15 Blood Pressure 119/78 118/75 132/79 Pulse Oximetry 92 98 98 Oxygen Delivery Nasal Cannula Nasal Cannula Nasal Cannula Oxygen Flow Rate 2 2 2 12/31/24 14:30 12/31/24 14:45 12/31/24 14:56 Temperature 96.0 F L 96.0 F L Pulse Rate 80 81 88 Respiratory Rate 20 22 H 15 Blood Pressure 117/65 117/63 Pulse Oximetry 95 93 98 Oxygen Delivery Nasal Cannula Oxygen Flow Rate 1 12/31/24 15:15 12/31/24 15:59 12/31/24 19:59 Temperature 96.2 F L 96.6 F L 98.6 F Pulse Rate 84 93 102 H Respiratory Rate 18 18 18 Blood Pressure 117/70 119/73 125/72 Pulse Oximetry 96 97 97 Oxygen Delivery Oxygen Flow Rate 12/31/24 20:09 12/31/24 23:59 01/01/25 03:59 Temperature 98.5 F 98.2 F Pulse Rate 91 98 Respiratory Rate 20 20 Blood Pressure 109/69 106/64 Pulse Oximetry 96 97 Oxygen Delivery Room Air Oxygen Flow Rate 01/01/25 07:59 Temperature 97.6 F Pulse Rate 93 Respiratory Rate 18 Blood Pressure 122/69 Pulse Oximetry 97 Oxygen Delivery Oxygen Flow Rate Intake/Output Intake/Output: Intake & Output 1112/30/24 12/31/24 01/01/25 23:59 23:59 23:59 23:59 Intake Total 340 1350 Output Total 550 825 Balance -210 525 Meds/Results Medications: Active Medications Generic Name Dose Route Start Last Admin Trade Name Freq PRN Reason Stop Dose Admin Acetaminophen 1,000 mg 12/31/24 18:00 01/01/25 05:46 Acetaminophen 500 Mg Tablet PO 1,000 mg Q6HR BRENDEN Administration Dextrose 12.5 gm 12/31/24 18:01 Dextrose 50% 25 Gm/50 Ml Syringe IV PUSH PRN PRN Hypoglycemia Protocol Enoxaparin Sodium 40 mg 01/01/25 09:00 01/01/25 08:33 Enoxaparin 40 Mg/0.4 Ml Syringe SUB-Q 40 mg DAILY BRENDEN Administration Glucagon 1 mg 12/31/24 18:01 Glucagon For Inj 1 Mg Vial IM PRN PRN Hypoglycemia Protocol Glucose 15 gm 12/31/24 18:01 Glucose Oral Gel 15 Gm Of Glucse In 37.5 Gm Tube PO PRN PRN Hypoglycemia Protocol Hydromorphone HCl 1 mg 12/31/24 14:14 01/01/25 02:18 Hydromorphone Hcl Inj (*Crx) 1 Mg/Ml Syr IV PUSH 1 mg Q2H PRN Administration Breakthrough Pain Rated 7-10 or NPO Hydromorphone HCl 0.5 mg 12/31/24 14:14 01/01/25 05:46 Hydromorphone Hcl Inj (*Crx) 1 Mg/Ml Syr IV PUSH 0.5 mg Q2H PRN Administration Breakthrough Pain Rated 4-6 or NPO Lactated Ringer's 1,000 mls @ 100 mls/hr 12/31/24 14:14 01/01/25 02:14 Lr - Lactated Ringers Iv IV CONT 100 mls/hr .Q10H BRENDEN Administration Dextrose 1,000 mls @ 100 mls/hr 12/31/24 18:01 Dextrose 5% 1,000 Ml IVPB PRN PRN Hypoglycemia Protocol Insulin Aspart 2 - 5 units 12/31/24 18:05 01/01/25 08:32 Insulin Aspart (*Bkc) 100 Units/Ml SUB-Q 2 units TIDWM BRENDEN Administration Protocol Naloxone HCl 0.1 mg 12/31/24 14:14 Naloxone Hcl 0.4 Mg/Ml Vial IV PUSH Q2M PRN Opiate Reversal Ondansetron HCl 4 mg 12/31/24 14:14 12/31/24 20:09 Ondansetron Inj 4 Mg/2 Ml Vial IV PUSH 4 mg Q4H PRN Administration Nausea And Vomiting Oxycodone HCl 5 mg 12/31/24 14:14 Oxycodone Hcl (*Crx) 5 Mg Tab Ir PO Q4H PRN Pain Rated 4-6 Oxycodone HCl 10 mg 12/31/24 14:14 01/01/25 08:32 Oxycodone Hcl (*Crx) 5 Mg Tab Ir PO 10 mg Q4H PRN Administration Pain Rated 7-10 Pantoprazole Sodium 40 mg 01/01/25 09:00 01/01/25 08:32 Pantoprazole 40 Mg Tablet PO 40 mg QAM BRENDEN Administration Labs Labs: Laboratory Results - last 24 hr 12/31/24 12/31/24 12/31/24 13:02 16:19 20:55 WBC RBC Hgb Hct MCV MCH MCHC RDW Plt Count MPV Sodium Potassium Chloride Carbon Dioxide Anion Gap BUN Creatinine Estim Creat Clear Calc Estimated GFR Glucose POC Capillary Glucose 229 H 257 H 234 H Calcium 01/01/25 01/01/25 05:11 07:36 WBC 13.1 H RBC 4.48 L Hgb 12.9 L Hct 39.5 L MCV 88.2 MCH 28.8 MCHC 32.7 RDW 14.6 H Plt Count 266 MPV 10.2 Sodium 132 L Potassium 4.0 Chloride 99 Carbon Dioxide 24 Anion Gap 9 BUN 11 Creatinine 0.92 Estim Creat Clear Calc 117 Estimated GFR > 60 Glucose 185 H POC Capillary Glucose 207 H Calcium 8.9 Quality VTE Prophylaxis VTE prophylaxis: mechanical ordered and pharmacologic ordered
[2025-01-01 11:21] VITALS: BP 123/83; PULSE 97; RESP 16; TEMP 36.2; O2SAT 99
--- NOTE | 2025-01-01 13:56 | WPDANESPN ---
Anes - Prog Note Post-Op Date/Time: 01/01/25 13:56 Cardiovascular status: normal Respiratory status: normal Airway patency: baseline Mental status: baseline Vital Signs: Last Vital Signs Temp 36.2 C L 01/01/25 11:21 Pulse 97 01/01/25 11:21 Resp 16 01/01/25 11:21 BP 123/83 01/01/25 11:21 Pulse Ox 99 01/01/25 11:21 O2 Del Method Room Air 01/01/25 08:00 O2 Flow Rate 1 12/31/24 14:56 Pain Score (VAS): 5 I/O: Intake & Output 12/31/24 01/01/25 01/01/25 23:59 07:59 15:59 Intake Total 240 1350 1240 Output Total 450 825 Balance -760 268 0636 Laboratory Tests 01/01/25 05:11 01/01/25 05:11 12/31/24 12/31/24 01/01/25 16:19 20:55 05:11 WBC 13.1 H RBC 4.48 L Hgb 12.9 L Hct 39.5 L MCV 88.2 MCH 28.8 MCHC 32.7 RDW 14.6 H Plt Count 266 MPV 10.2 Sodium 132 L Potassium 4.0 Chloride 99 Carbon Dioxide 24 Anion Gap 9 BUN 11 Creatinine 0.92 Estim Creat Clear Calc 117 Estimated GFR > 60 Glucose 185 H POC Capillary Glucose 257 H 234 H Calcium 8.9 01/01/25 01/01/25 07:36 11:28 WBC RBC Hgb Hct MCV MCH MCHC RDW Plt Count MPV Sodium Potassium Chloride Carbon Dioxide Anion Gap BUN Creatinine Estim Creat Clear Calc Estimated GFR Glucose POC Capillary Glucose 207 H 197 H Calcium Patient Feedback: Patient satisfied with anesthetic care.
[2025-01-01 15:59] VITALS: BP 121/84; PULSE 96; RESP 18; TEMP 36.9; O2SAT 97
[2025-01-01] MEDS: ONDANSETRON INJ 4 MG/2 ML VIAL IV PUSH (18:52)
[2025-01-01 20:57] VITALS: BP 119/73; PULSE 102; RESP 20; TEMP 37.1; O2SAT 97
[2025-01-02] MEDS: ACETAMINOPHEN 500 MG TABLET 1000 MG PO ×3 (00:06→11:58)
[2025-01-02] MEDS: oxyCODONE HCL (*CRX) 5 MG TAB IR PO ×2 (00:07→05:32)
[2025-01-02 05:41] VITALS: BP 128/80; PULSE 106; RESP 20; TEMP 36.9; O2SAT 95
[2025-01-02 06:06] LABS: Hematocrit 37.6 % (42.0-52.0); Hemoglobin 12.1 g/dL (14.0-18.0); Mean Corpuscular HGB Conc 32.2 g/dl (32-36); Mean Corpuscular Hemoglobin 28.9 pg (26-34); Mean Corpuscular Volume 90.0 fl (80-100); Platelet Count Result 209 k/mm3 (150-375); Red Blood Count 4.18 M/mm3 (4.6-6.20); White Blood Count 9.8 K/mm3 (4.5-10.0)
[2025-01-02 06:35] LABS: Anion Gap 4 mmol/L (4-12); Blood Urea Nitrogen 9 mg/dL (9-20); Calcium 8.7 mg/dL (8.4-10.2); Carbon Dioxide 27 mmol/L (22-30); Chloride 102 mmol/L (98-107); Estimated CRCL calculation 129 ml/min; Estimated Glomerular Filt Rate > 60; Glucose 166 mg/dL (65-110); Potassium 3.8 mmol/L (3.4-5.0); Sodium 133 mmol/L (137-145)
[2025-01-02] MEDS: LACTATED RINGERS 1,000 ML 100 ML IV CONT (06:53)
[2025-01-02] MEDS: PANTOPRAZOLE 40 MG TABLET PO (09:16)
[2025-01-02] MEDS: oxyCODONE HCL (*CRX) 5 MG TAB IR 10 MG PO (09:17)
[2025-01-02] MEDS: ENOXAPARIN 40 MG/0.4 ML SYRINGE SUB-Q (09:18)
--- NOTE | 2025-01-02 10:26 | P.PNGS_ITS ---
Progress Note: A&P Assessment and Plan (1) Stricture of sigmoid colon: Code(s): K56.699 - Other intestinal obstruction unspecified as to partial versus complete obstruction Status: Acute Assessment and Plan: POD #2 s/p RAL sigmoidectomy. Patient doing well overall. Tolerating FLD, having ROBF, advance to low residue diet. Incisions CDI. Continue PRN pain control. Encourage ambulation. DC IVF. Encourage IS use. Continue DVT ppx with lovenox. Please see attending attestation for further plan and updates (2) Umbilical hernia: Qualifiers: Obstruction and gangrene presence: with obstruction but without gangrene Qualified Code(s): K42.0 - Umbilical hernia with obstruction, without gangrene Code(s): K42.9 - Umbilical hernia without obstruction or gangrene Status: Chronic Assessment and Plan: repaired primarily 12/31 (3) Type 2 diabetes mellitus without complications: Code(s): E11.9 - Type 2 diabetes mellitus without complications Status: Chronic Assessment and Plan: continue SSI (4) Hx of diverticulitis of colon: Code(s): Z87.19 - Personal history of other diseases of the digestive system Status: Acute (5) BMI 40.0-44.9, adult: Code(s): Z68.41 - Body mass index [BMI] 40.0-44.9, adult Status: Chronic Subjective Subjective Date/Time Seen: 01/02/25 10:26 Interval history: NAEON. Ambulating, tolerating FLD, having some BMs, urinating without difficulty. Pain controlled, most of his pain localized to right lower side. Incisions CDI. Review of Systems Review of Systems: All systems reviewed & are unremarkable except as noted in HPI and below (HPI) Exam Const: General: cooperative, healthy appearing, no acute distress, alert and awake HENMT: Head: normocephalic and atraumatic Eyes: General: appearance normal, both eyes and all related structures EOM: EOMs intact bilaterally Neck: Neck: normal visual inspection and no JVD Resp: Other: symmetric expansion, no IWOB, on RA Cardio: Rate: regular rate Rhythm: regular rhythm GI: Other: soft, aTTP, ND, nonperitoneal, abdominal binder in place, incisions CDI Skin: General skin exam: normal color and no rashes or lesions noted Extrem: Other: moves all, normal inspection Psych: Appearance: grossly normal Mental Status: mental status grossly normal Speech and movement: Normal speech and movement present Affect: normal affect Attitude: cooperative Thought process: Normal thought process present Objective Data Vital Signs Vital Signs: Vital Signs - 24 hr 01/01/25 11:21 01/01/25 15:59 01/01/25 20:00 Temperature 97.1 F L 98.4 F Pulse Rate 97 96 Respiratory Rate 16 18 Blood Pressure 123/83 121/84 Pulse Oximetry 99 97 Oxygen Delivery Room Air 01/01/25 20:57 01/02/25 05:41 01/02/25 09:15 Temperature 98.8 F 98.5 F Pulse Rate 102 H 106 H Respiratory Rate 20 20 Blood Pressure 119/73 128/80 Pulse Oximetry 97 95 Oxygen Delivery Room Air Intake/Output Intake/Output: Intake & Output 12/30/24 12/31/24 01/01/25 01/02/25 23:59 23:59 23:59 23:59 Intake Total 340 4990 796.7 Output Total 550 825 425 Balance -210 4165 371.7 Meds/Results Medications: Active Medications Generic Name Dose Route Start Last Admin Trade Name Freq PRN Reason Stop Dose Admin Acetaminophen 1,000 mg 12/31/24 18:00 01/02/25 05:32 Acetaminophen 500 Mg Tablet PO 1,000 mg Q6HR BRENDEN Administration Dextrose 12.5 gm 12/31/24 18:01 Dextrose 50% 25 Gm/50 Ml Syringe IV PUSH PRN PRN Hypoglycemia Protocol Enoxaparin Sodium 40 mg 01/01/25 09:00 01/02/25 09:18 Enoxaparin 40 Mg/0.4 Ml Syringe SUB-Q 40 mg DAILY BRENDEN Administration Glucagon 1 mg 12/31/24 18:01 Glucagon For Inj 1 Mg Vial IM PRN PRN Hypoglycemia Protocol Glucose 15 gm 12/31/24 18:01 Glucose Oral Gel 15 Gm Of Glucse In 37.5 Gm Tube PO PRN PRN Hypoglycemia Protocol Hydromorphone HCl 1 mg 12/31/24 14:14 01/01/25 12:49 Hydromorphone Hcl Inj (*Crx) 1 Mg/Ml Syr IV PUSH 1 mg Q2H PRN Administration Breakthrough Pain Rated 7-10 or NPO Hydromorphone HCl 0.5 mg 12/31/24 14:14 01/01/25 05:46 Hydromorphone Hcl Inj (*Crx) 1 Mg/Ml Syr IV PUSH 0.5 mg Q2H PRN Administration Breakthrough Pain Rated 4-6 or NPO Dextrose 1,000 mls @ 100 mls/hr 12/31/24 18:01 Dextrose 5% 1,000 Ml IVPB PRN PRN Hypoglycemia Protocol Insulin Aspart 2 - 5 units 12/31/24 18:05 01/02/25 08:38 Insulin Aspart (*Bkc) 100 Units/Ml SUB-Q Not Given TIDWM [facility] Protocol Naloxone HCl 0.1 mg 12/31/24 14:14 Naloxone Hcl 0.4 Mg/Ml Vial IV PUSH Q2M PRN Opiate Reversal Ondansetron HCl 4 mg 12/31/24 14:14 01/01/25 18:52 Ondansetron Inj 4 Mg/2 Ml Vial IV PUSH 4 mg Q4H PRN Administration Nausea And Vomiting Oxycodone HCl 5 mg 12/31/24 14:14 01/02/25 05:32 Oxycodone Hcl (*Crx) 5 Mg Tab Ir PO 5 mg Q4H PRN Administration Pain Rated 4-6 Oxycodone HCl 10 mg 12/31/24 14:14 01/02/25 09:17 Oxycodone Hcl (*Crx) 5 Mg Tab Ir PO 10 mg Q4H PRN Administration Pain Rated 7-10 Pantoprazole Sodium 40 mg 01/01/25 09:00 01/02/25 09:16 Pantoprazole 40 Mg Tablet PO 40 mg QAM BRENDEN Administration Labs Labs: Laboratory Results - last 24 hr 01/01/25 01/01/25 01/01/25 11:28 16:16 20:30 WBC RBC Hgb Hct MCV MCH MCHC RDW Plt Count MPV Sodium Potassium Chloride Carbon Dioxide Anion Gap BUN Creatinine Estim Creat Clear Calc Estimated GFR Glucose POC Capillary Glucose 197 H 178 H 190 H Calcium 01/02/25 01/02/25 05:26 07:46 WBC 9.8 RBC 4.18 L Hgb 12.1 L Hct 37.6 L MCV 90.0 MCH 28.9 MCHC 32.2 RDW 14.7 H Plt Count 209 MPV 10.2 Sodium 133 L Potassium 3.8 Chloride 102 Carbon Dioxide 27 Anion Gap 4 BUN 9 Creatinine 0.86 Estim Creat Clear Calc 129 Estimated GFR > 60 Glucose 166 H POC Capillary Glucose 184 H Calcium 8.7
--- NOTE | 2025-01-02 13:03 | P.DS_ITS ---
DS: Admitting Diagnosis Discharge Date 01/02/2025 Admitting Diagnosis Diverticulitis of large intestine, sigmoid stricture, umbilical hernia, type 2 diabetes, BMI 40 DS: Discharge Diagnosis Discharge Diagnosis (1) Diverticulitis large intestine: Qualifiers: Diverticulitis bleeding: unspecified bleeding status Diverticulitis complication: unspecified complication status Qualified Code(s): K57.32 - Diverticulitis of large intestine without perforation or abscess without bleeding Code(s): K57.32 - Diverticulitis of large intestine without perforation or abscess without bleeding Status: Chronic (2) Stricture of sigmoid colon: Code(s): K56.699 - Other intestinal obstruction unspecified as to partial versus complete obstruction Status: Acute (3) Umbilical hernia: Qualifiers: Obstruction and gangrene presence: with obstruction but without gangrene Qualified Code(s): K42.0 - Umbilical hernia with obstruction, without gangrene Code(s): K42.9 - Umbilical hernia without obstruction or gangrene Status: Chronic (4) Type 2 diabetes mellitus without complications: Code(s): E11.9 - Type 2 diabetes mellitus without complications Status: Chronic (5) BMI 40.0-44.9, adult: Code(s): Z68.41 - Body mass index [BMI] 40.0-44.9, adult Status: Chronic DS: Summary Hospital Course Reason for hospitalization: Diverticulitis of large intestine, umbilical hernia Hospital Course: This is a 49-year-old man who presented with multiple prior episodes of diverticulitis. He was found to have evidence of a sigmoid stricture secondary to chronic diverticulitis. He also had a large umbilical hernia containing omentum that was occasionally symptomatic. He underwent robotic assisted laparoscopic sigmoid colectomy, and open incarcerated umbilical hernia repair on 12/31/2024. Surgery was uncomplicated and he was admitted for further recovery. He was started initially on a clear liquid diet and then was advanced to a full liquid diet. Postop day 1 he was tolerating the liquids. He was still having some pain control issues but this was controlled with oral and IV pain medications. He was not ambulating much on postop day 1. On postop day 2 his pain was a little better controlled and he was ambulating better. Bowel function was returning and he was advanced to a soft diet. He continued to tolerate this and was remaining hemodynamically stable. Pathology showed evidence of chronic diverticulitis. He was discharged on 01/02/2025. Status at Discharge Functional status at discharge: independent ambulation Overall status at discharge: patient is progressing back to baseline Time Spent with Patient Time attestation: Total time spent providing and/or coordinating discharge services: Time spent: Less than 30 minutes Exam Const: General: comfortable and no acute distress Orientation/consciousness: patient oriented x3 Resp: Effort & Inspection: normal respiratory effort Auscultation: clear to auscultation bilaterally GI: Inspection: normal to inspection, non-distended and incision (Intact with glue) GI Palp: Yes Soft to palpation, Yes Tenderness to palpation present (GI) (Incisional) and No Guarding due to palpation present (GI) Auscultation: normal bowel sounds DS: Data Data Completed and Pending Completed studies during hospitalization: Pending at discharge 12/31/24 12:27 Surgical [PTH] Routine Surgical [PTH] Routine Labs on day of discharge: Labs from last 24 hours 01/02/25 01/02/25 01/02/25 11:09 07:46 05:26 WBC 9.8 RBC 4.18 L Hgb 12.1 L Hct 37.6 L MCV 90.0 MCH 28.9 MCHC 32.2 RDW 14.7 H Plt Count 209 MPV 10.2 Sodium 133 L Potassium 3.8 Chloride 102 Carbon Dioxide 27 Anion Gap 4 BUN 9 Creatinine 0.86 Estim Creat Clear Calc 129 Estimated GFR > 60 Glucose 166 H POC Capillary Glucose 184 H 184 H Calcium 8.7 01/01/25 01/01/25 20:30 16:16 WBC RBC Hgb Hct MCV MCH MCHC RDW Plt Count MPV Sodium Potassium Chloride Carbon Dioxide Anion Gap BUN Creatinine Estim Creat Clear Calc Estimated GFR Glucose POC Capillary Glucose 190 H 178 H Calcium Discharge Plan Discharge Attending physician on discharge: Kumar Flowers Consulting providers: Jack Banks; Layne Trevino Discharging Clinician: Kumar Flowers Patient Disposition: Home Activity: other - see discharge instructions Diet: other - see discharge instructions Wound Care Instructions: other - see discharge instructions Discharge Instructions: Okay to shower, no bathing or soaking underwater for [address] in 3 days No lifting greater than 10 lb for the next 6 weeks Prescription for pain meds sent to pharmacy May apply ice to incisions for 20 minutes at a time as needed for the 1st couple days at home Wear abdominal binder for the next 2 weeks, okay to remove to shower or while just resting Continue a soft regular diet for the next week, then no dietary restrictions Call office for increasing pain, fevers, or other problems with incisions or bowel movements Patient Instructions: Antibiotic Form, Opioid Safety (DC) Patient Language: [place] Stand Alone Forms: General Discharge Information Follow-up/Referrals: Kumar Flowers DO [Physician, General Surgery] - 01/22/25 2:15 pm Discharge Medications: New oxycodone-acetaminophen [Endocet] 5-325 mg tablet 1 tablet PO Q4H PRN (Reason: pain) Qty: 15 0RF Continued esomeprazole magnesium [Nexium] 40 mg capsule,delayed release(DR/EC) 40 mg PO DAILY Qty: 30 3RF testosterone cypionate 200 mg/mL oil 200 mg subcut [id number] Patient Comments: HAS NOT TAKEN SINCE 11/03/24 tirzepatide 10 mg/0.5 mL pen injector 15 mg subcut WEEKLY Patient Comments: LAST DOSE 11/03/24 TAKES FOR DM Rx Instructions: for weeks 8-12 ondansetron 4 mg tablet,disintegrating 4 mg PO Q8H PRN (Reason: nausea and vomiting) Qty: 20 0RF cholecalciferol (vitamin D3) 50 mcg (2,000 unit) capsule 50 mcg PO DAILY geriatric multivitamin-min Tablet 1 tablet PO DAILY (DME) OneTouch Verio test strips Strip See Rx Instructions .Route Qty: 100 0RF Rx Instructions: As directed (DME) lancets [OneTouch Delica Plus Lancet] 30 gauge misc See Rx Instructions .Route Qty: 100 3RF Rx Instructions: check glucose bid for diabetes Discontinued ciprofloxacin HCl 500 mg tablet 500 mg PO .COMPLEX Qty: 1 0RF Rx Instructions: 500 mg orally at 2:00pm the day before surgery; metronidazole 500 mg tablet 500 mg PO .COMPLEX Qty: 3 0RF Rx Instructions: 500 mg orally at 1:00pm, 2:00pm, and 11:00pm the day before surgery; Date of admission: 12/31/24 14:14 Primary Care Provider: Fidel Rae Admitting Provider: Kumar Flowers Attending physician on admission: Kumar Flowers Condition: Improved
== END 2025-01-02 13:45 | disposition home or self-care (01) | DRG 330 ==
LOC: ANH3MEDSUR 14:44
PROVIDERS: Admitting Provider Surgery; PCP Family Medicine; Visit Provider Surgery
PROC: 0DBN4ZZ Excision of Sigmoid Colon, Percutaneous Endoscopic Approach (ICD-10-PCS; principal; 2024-12-31 07:30)
PROC: 0DBN4ZZ Excision of Sigmoid Colon, Percutaneous Endoscopic Approach (ICD-10-PCS; 2024-12-31 07:30)
DX: K57.32 Diverticulitis of large intestine without perforation or abscess without bleeding (principal); K42.0 Umbilical hernia with obstruction, without gangrene; Z68.41 Body mass index [BMI] 40.0-44.9, adult; E11.9 Type 2 diabetes mellitus without complications; E66.01 Morbid (severe) obesity due to excess calories; G47.33 Obstructive sleep apnea (adult) (pediatric)
CPT/HCPCS: 36415; 80048; 82948; 85027; 88302; 88307; A9270; C1729; J0360; J0690; J1100; J1171; J1650; J1815; J1885; J2003; J2250; J2405; J2704; J3010; J7030; J7120